=== PATIENT | female | born 1995 | race Caucasian/White ===

== ENCOUNTER 2021-02-20 10:11 | Emergency (ER) | payer SELFPAY ==
[2021-02-20 10:34] VITALS: BP 199/141; PULSE 104; RESP 15; TEMP 36.9; O2SAT 100; BMI 29.4
--- NOTE | 2021-02-20 10:40 | ECG_ITS ---
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 Measurements Intervals [place] Rate: 74 P: 38 MS: 160 QRS: 30 QRSD: 81 T: 52 QT: 385 QTc: 427 Interpretive Statements SINUS RHYTHM No previous ECG available for comparison Electronically Signed On 02-20-2021 18:25:05 CDT by Cristofer De La Rosa M.D. [id number]
--- NOTE | 2021-02-20 10:40 | XRR_ITS ---
PROCEDURE INFORMATION: Exam: XR Chest Exam date and time: 02/20/2021 10:46 AM Age: 25 years old Clinical indication: Chest wall pain; Additional info: Chest discomfort TECHNIQUE: Imaging protocol: XR of the chest. Views: 1 view. COMPARISON: No relevant prior studies available. FINDINGS: Lungs: Unremarkable. No consolidation. Pleural spaces: Unremarkable. No pleural effusion. No pneumothorax. Heart/Mediastinum: Unremarkable. No cardiomegaly. Bones/joints: Unremarkable. XR/XR chest 1V portable [id number] IMPRESSION: No acute findings.
[2021-02-20] MEDS: metoprolol tartrate 25 mg Tablet PO (10:48)
[2021-02-20] MEDS: metoprolol tartrate 1 mg/1 mL SDV 5 mL 5 MG IV (10:49)
[2021-02-20] MEDS: amlodipine 10 mg Tablet PO (10:49)
--- NOTE | 2021-02-20 10:55 | W.ED.CHESTPA ---
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 She was aware that her blood pressure had been climbing up lately she denies any fever sweats chills no cough or shortness of breath. No abdominal pain no dysuria urgency or frequency. MD complaint: chest discomfort Onset (ago): hour(s) Timing of current episode: episodic Onset: during rest Pain location: left chest and epigastric Pain radiation: none Quality: tightness and aching Associated symptoms: Deny abdominal pain, diaphoresis, dyspnea, fever(s), leg edema, nausea, palpitations, sense of impending doom, syncope, vomiting or other Review of Systems Const: Denies: fever(s) or diaphoresis ENMT: Denies: throat pain, ear or mastoid pain, nasal discharge or nasal congestion Card: Denies: palpitations or syncope Resp: Denies: dyspnea GI: Denies: abdominal pain, nausea or vomiting : Denies: flank pain, difficulty voiding, dysuria, urinary frequency or urinary urgency Skin/Breast: Denies: rash or pruritus Physical Exam Const: COMMON NORMALS: no acute distress GENERAL APPEARANCE: cooperative and comfortable ORIENTATION/CONSCIOUSNESS: Yes awake, Yes oriented to person, Yes oriented to place and Yes oriented to time HENMT: COMMON NORMALS: normocephalic, atraumatic, hearing grossly normal bilaterally, external ears normal, EAC's normal, TM's normal bilaterally, Normal nasal mucous membranes and turbinates present, moist oral mucous membranes and oropharynx normal HEAD & SCALP: normocephalic and atraumatic NOSE: Normal nasal mucous membranes and turbinates present EXTERNAL EAR: Yes external ears normal EXTERNAL AUDITORY CANAL: EAC's normal TYMPANIC MEMBRANE: TM's normal bilaterally Neck/C-Spine: COMMON NORMALS: no JVD Lymph: LYMPHATIC: no lymphadenopathy noted and no lymphedema noted Resp: COMMON NORMALS: normal respiratory effort, No retractions, No use of accessory muscles and clear to auscultation bilaterally AUSCULTATION: clear to auscultation bilaterally Cardio: COMMON NORMALS: no JVD, regular rate, regular rhythm and No murmurs present (Cardio) RATE: regular rate RHYTHM: regular rhythm GI: COMMON NORMALS: Soft to palpation and No hepatosplenomegaly present AUSCULTATION: Yes normoactive bowel sounds PALPATION: Yes Soft to palpation, No Tenderness to palpation present (GI), No Guarding due to palpation present (GI) and Yes No hepatosplenomegaly present Extremity: COMMON NORMALS: normal to inspection, capillary refill normal, no clubbing, cyanosis or edema, no calf tenderness and no pedal edema Neuro: SENSORIUM/ORIENTATION: Yes oriented to person, Yes oriented to place and Yes oriented to time Skin: COMMON NORMALS: no rashes or lesions noted GENERAL SKIN EXAM: no rashes or lesions noted Course Vital Signs: Vital signs: Vital Signs Temperature 98.4 F 02/20/21 10:34 Pulse Rate 90 02/20/21 14:53 Respiratory Rate 18 02/20/21 14:53 Blood Pressure 147/113 02/20/21 14:53 Pulse Oximetry 99 02/20/21 14:53 MDM - Chest Pain MDM Narrative: Medical decision making narrative: Blood pressure improved we will discharge home on amlodipine 10 mg daily and Toprol-XL 50 mg daily. Encourage patient follow-up with her primary care doctor within the next 2 to 3 days visiting worsening recurrent symptoms return. Discussed EKG and troponins with her which were negative. Lab Data: Labs: Lab Results 02/20/21 02/20/21 02/20/21 Range/Units 11:02 11:02 11:02 WBC 6.3 (4.0-10.0) 10^3/ uL RBC 4.70 (4.1-5.3) 10^6/u L Hgb 15.9 H (11.5-15.3) g/dL Hct 44.7 (37.0-47.0) % MCV 95.1 (81-99) fL MCH 33.8 (28.0-34.0) pg MCHC 35.6 (30.0-36.0) g/dL RDW 11.4 L (12.1-15.1) % Plt Count 199 (130-400) 10^3/c mm MPV 11.3 H (7.4-10.4) fL Neut % (Auto) 75.3 % Lymph % (Auto) 14.1 % Lake % (Auto) 8.5 % Eos % (Auto) 0.9 % Baso % (Auto) 0.6 % Neut # (Auto) 4.76 (1.8-7.7) 10^3/u L Lymph # (Auto) 0.9 (0.8-4.8) 10^3/u L Lake # (Auto) 0.5 (0.2-0.9) 10^3/u L Eos # (Auto) 0.1 (0.0-0.8) 10^3/u L Baso # (Auto) 0.0 (0.0-0.1) 10^3/u L Nucleated RBC % (a uto) 0 % Nucleated RBCs # 0.0 /100WBC Sodium Cancelled Potassium Cancelled Chloride Cancelled Carbon Dioxide Cancelled Anion Gap Cancelled BUN Cancelled Creatinine Cancelled GFR Calculation Cancelled Glucose Cancelled Calculated Osmolal ity Cancelled Calcium Cancelled Total Bilirubin Cancelled AST Cancelled ALT Cancelled Alkaline Phosphata se Cancelled Troponin T Baselin e 6 (0-10) ng/L Troponin T 120 Min [place] (0-10) ng/L Delta Troponin T (0-10) ABS# Total Protein Cancelled Albumin Cancelled Globulin Cancelled Urine Color (Yellow) Urine Appearance (CLEAR) Urine pH (5-7) Ur Specific Gravit y (1.005-1.030) Urine Protein (Negative) Urine Glucose (UA) (Normal) Urine Ketones (Negative) Urine Blood (Negative) Urine Nitrate (Negative) Urine Bilirubin (Negative) Prot Sulfosalicyli c Acd (Negative) Urine Urobilinogen (Negative) mg/dL Ur Leukocyte ase (Negative) Urine RBC (0-2) /hpf Urine WBC (0-5) /hpf Ur Squamous Epith Cells (0-5) /hpf Amorphous Sediment Urine Bacteria (NONE) /hpf 02/20/21 02/20/21 02/20/21 Range/Units 12:03 13:10 13:10 WBC (4.0-10.0) 10^3/ uL RBC (4.1-5.3) 10^6/u L Hgb (11.5-15.3) g/dL Hct (37.0-47.0) % MCV (81-99) fL MCH (28.0-34.0) pg MCHC (30.0-36.0) g/dL RDW (12.1-15.1) % Plt Count (130-400) 10^3/c mm MPV (7.4-10.4) fL Neut % (Auto) % Lymph % (Auto) % Lake % (Auto) % Eos % (Auto) % Baso % (Auto) % Neut # (Auto) (1.8-7.7) 10^3/u L Lymph # (Auto) (0.8-4.8) 10^3/u L [place] # (Auto) (0.2-0.9) 10^3/u L Eos # (Auto) (0.0-0.8) 10^3/u L Baso # (Auto) (0.0-0.1) 10^3/u L Nucleated RBC % (a uto) % Nucleated RBCs # /100WBC Sodium 136 Potassium 4.5 Chloride 98 Carbon Dioxide 27 Anion Gap 15.5 BUN 8 Creatinine 0.5 GFR Calculation 148.0 H Glucose 106 Calculated Osmolal ity 281 L Calcium 9.1 Total Bilirubin 1.0 AST 220 H ALT 161 H Alkaline Phosphata se 109 H Troponin T Baselin e (0-10) ng/L Troponin T 120 Min [place] 6.00 (0-10) ng/L Delta Troponin T 0 (0-10) ABS# Total Protein 7.3 Albumin 4.2 Globulin 3.1 Urine Color Yellow (Yellow) Urine Appearance Hazy A (CLEAR) Urine pH 8 H (5-7) Ur Specific Gravit y 1.005 (1.005-1.030) Urine Protein 1+ H (Negative) Urine Glucose (UA) Norm (Normal) Urine Ketones Negative (Negative) Urine Blood Neg (Negative) Urine Nitrate Negative (Negative) Urine Bilirubin Neg (Negative) Prot Sulfosalicyli c Acd Positive (Negative) Urine Urobilinogen Norm (Negative) mg/dL Ur Leukocyte ase Negative (Negative) Urine RBC None (0-2) /hpf Urine WBC 0-4 H (0-5) /hpf Ur Squamous Epith Cells 10-15 H (0-5) /hpf Amorphous Sediment Not Reportable Urine Bacteria 1+ H (NONE) /hpf Discharge Plan Discharge Patient Disposition: Home Clinical Impression: HTN (hypertension) Condition: Stable Prescriptions: New amlodipine 10 mg tablet 10 mg PO DAILY Qty: 30 RF: 0 Toprol XL 50 mg tablet extended release 24 hr 50 mg PO DAILY Qty: 30 RF: 0 Discharge Orders: Discharge ED (Routine); Ordered 02/20/21 Ordered By: Joseph Burnette Referrals: Tyesha Quinteros DO [Primary Care Provider] - Discharge Diet: Usual diet Discharge Activity: Increase activity as tolerated Patient Instructions: Opioid Safety Coding Level of Care Code ED Manager Wellness for Chg Fwd Exam Comprehensive
[2021-02-20 12:39] LABS: Basophils % 0.6 %; Eosinophils # 0.1 10^3/uL (0.0-0.8); Eosinophils % 0.9 %; Hematocrit 44.7 % (37.0-47.0); Hemoglobin 15.9 g/dL (11.5-15.3); Lymphocytes # 0.9 10^3/uL (0.8-4.8); Lymphocytes % 14.1 %; Mean Corpuscular HGB Conc 35.6 g/dL (30.0-36.0); Mean Corpuscular Hemoglobin 33.8 pg (28.0-34.0); Mean Corpuscular Volume 95.1 fL (81-99); Mean Platelet Volume 11.3 fL (7.4-10.4); Monocytes # 0.5 10^3/uL (0.2-0.9); Monocytes % 8.5 %; Neutrophils # 4.76 10^3/uL (1.8-7.7); Neutrophils % 75.3 %; Nucleated Red Blood Cells % 0 %; Platelet Count 199 10^3/cmm (130-400); Red Cell Distribution Width 11.4 % (12.1-15.1); White Blood Count 6.3 10^3/uL (4.0-10.0)
--- NOTE | 2021-02-20 12:40 | ECG_ITS ---
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 Measurements Intervals [place] Rate: 73 P: 29 ME: 151 QRS: 29 QRSD: 85 T: 7 QT: 392 QTc: 432 Interpretive Statements SINUS RHYTHM Compared to ECG 02/20/2021 11:15:19 No significant changes Electronically Signed On 02-20-2021 18:25:26 CDT by Cristofer De La Rosa M.D. [id number]
[2021-02-20 12:51] LABS: Troponin(5th) Baseline 6 ng/L (0-10)
[2021-02-20] MEDS: labetalol 5 mg/mL SDV 20mL 10 MG IVP (13:09)
[2021-02-20 13:51] LABS: Alanine Aminotransferase 161 U/L (0-33); Albumin Level 4.2 g/dL (3.5-5.2); Alkaline Phosphatase 109 IU/L (35-105); Anion Gap 15.5 (5-19); Aspartate Amino Transferase 220 U/L (0-32); Blood Urea Nitrogen 8 mg/dL (6-20); Calcium 9.1 mg/dL (8.5-10.5); Carbon Dioxide 27 mmol/L (22-29); Chloride 98 mmol/L (98-107); Globulin 3.1 g/dL (1.3-4.6); Glucose 106 mg/dL (65-115); Osmolality Calculated 281 mOsm/kg (285-295); Potassium 4.5 mmol/L (3.5-5.1); Sodium 136 mmol/L (136-145); Total Protein 7.3 g/dL (6.6-8.7)
[2021-02-20 13:53] LABS: Troponin 5 2HR Delta 0 ABS# (0-10)
[2021-02-20] MEDS: cloNIDine 0.1 mg Tablet PO (13:59)
[2021-02-20 14:53] VITALS: BP 147/113; PULSE 90; RESP 18; O2SAT 99
[2021-02-20 15:01] LABS: Add Urine Microscopic? YES; Bilirubin Urine Neg (Negative); Blood Urine Neg (Negative); Glucose Urine UA Norm (Normal); Ketones Urine Negative (Negative); Leukocyte Esterase Urine Negative (Negative); Nitrate Urine Negative (Negative); Protein Urine 1+ (Negative); Specific Gravity, Urine 1.005 (1.005-1.030); Sulfosalicylic Acid Urine Positive (Negative); Urine Appearance Hazy (CLEAR); Urine Color Yellow (Yellow); Urobilinogen Urine Norm (Negative); pH Urine 8 (5-7)
[2021-02-20 15:06] LABS: WBC Urine 0-4 /hpf (0-5)
[2021-02-20 15:07] LABS: Add Urine Culture? No; Bacteria Urine 1+ /hpf
== END 2021-02-20 14:55 | disposition home or self-care (01) ==
PROVIDERS: Emergency Provider Family Medicine; PCP Family Medicine
DX: I10 Essential (primary) hypertension (principal)
CPT/HCPCS: 36415; 71045; 80053; 81001; 84484; 85025; 93005; 96374; 96375; 99284; J3490

== ENCOUNTER 2022-01-25 09:46 | Outpatient (CLI) | payer BC, MEDICAID, SELFPAY ==
[2022-01-25 10:08] VITALS: BP 132/90; PULSE 99
[2022-01-25 10:12] VITALS: TEMP 35.7
[2022-01-25 10:28] VITALS: BP 133/90; PULSE 93
[2022-01-25 12:34] VITALS: BP 133/90; PULSE 93; RESP 18; TEMP 36.3
== END 2022-01-25 12:40 | disposition home or self-care (01) ==
LOC: OPOB 09:52 → OBGYN 09:53
PROVIDERS: PCP Family Medicine; Visit Provider Family Medicine
DX: O26.899 Other specified pregnancy related conditions, unspecified trimester (principal); Z3A.00 Weeks of gestation of pregnancy not specified; R10.9 Unspecified abdominal pain
CPT/HCPCS: 99211

== ENCOUNTER 2022-04-13 12:42 | Outpatient (CLI) | payer BC, MEDICAID, SELFPAY ==
[2022-04-13 12:50] VITALS: RESP 16; TEMP 35.9
[2022-04-13 12:53] VITALS: BP 118/81; PULSE 108; RESP 17; TEMP 36.4; O2SAT 97
[2022-04-13 13:05] VITALS: BMI 28.4
[2022-04-13 13:22] VITALS: BP 116/81; PULSE 100
== END 2022-04-13 13:30 | disposition home or self-care (01) ==
LOC: OPOB 12:43 → OBGYN 12:45
PROVIDERS: PCP Family Medicine; Visit Provider Family Medicine
DX: O16.9 Unspecified maternal hypertension, unspecified trimester (principal); Z3A.00 Weeks of gestation of pregnancy not specified
CPT/HCPCS: 59025

== ENCOUNTER 2022-04-17 15:11 | Outpatient (CLI) | payer BC, MEDICAID, SELFPAY ==
[2022-04-17 15:11] VITALS: BMI 28.8
[2022-04-17 15:26] VITALS: TEMP 35.9
[2022-04-17 15:30] VITALS: RESP 17
[2022-04-17 15:33] VITALS: BP 143/85; PULSE 104
[2022-04-17 15:48] VITALS: BP 148/91; PULSE 96
[2022-04-17 15:49] VITALS: BP 140/80; PULSE 93
== END 2022-04-17 15:55 | disposition home or self-care (01) ==
LOC: OPOB 15:15 → OBGYN 15:16
PROVIDERS: PCP Family Medicine; Visit Provider Family Medicine
DX: O16.9 Unspecified maternal hypertension, unspecified trimester (principal); Z3A.00 Weeks of gestation of pregnancy not specified
CPT/HCPCS: 59025

== ENCOUNTER 2022-04-24 15:27 | Outpatient (CLI) | payer BC, MEDICAID, SELFPAY ==
[2022-04-24 15:27] VITALS: BMI 29.2
[2022-04-24 15:41] VITALS: BP 139/92; PULSE 110
[2022-04-24 15:57] VITALS: BP 136/97; PULSE 104
[2022-04-24 16:12] VITALS: BP 138/85; PULSE 105
[2022-04-24 16:27] VITALS: BP 136/89; PULSE 100
== END 2022-04-24 16:28 | disposition home or self-care (01) ==
LOC: OPOB 15:34 → OBGYN 15:36
PROVIDERS: PCP Family Medicine; Visit Provider Family Medicine
DX: O16.9 Unspecified maternal hypertension, unspecified trimester (principal); Z3A.00 Weeks of gestation of pregnancy not specified
CPT/HCPCS: 59025

== ENCOUNTER 2022-04-28 16:54 | Outpatient (CLI) | payer BC, MEDICAID, SELFPAY ==
[2022-04-27 15:38] VITALS: RESP 18
[2022-04-28] VITALS (11 sets, daily range): BP systolic 119–149; BP diastolic 71–104; PULSE 99–110; RESP 16–18; TEMP 35.7; BMI 29.2
--- NOTE | 2022-04-28 17:25 | USR_ITS ---
PROCEDURE INFORMATION: Exam: US Biophysical Profile Without Non-Stress Test Exam date and time: 04/28/2022 5:58 PM Age: 26 years old Clinical indication: status abnormalities: ; Abnormal heart rate; Single gestation; Third trimester (=28 weeks 0 days); ; Additional info: Deceleration TECHNIQUE: Imaging protocol: US biophysical profile without non-stress testing. COMPARISON: US OB >= 14 weeks fetus [id number] 01/15/2022 3:12 PM FINDINGS: heart rate: 136 bpm Presentation: Cephalic Placenta: Placenta is anterior. Amniotic fluid: Amniotic fluid volume is normal. Amniotic fluid index: VERNA is 7.2 cm. BIOPHYSICAL PROFILE: breathing movement (BPP): 2/2 body movement (BPP): 2/2 tone (BPP): 2/2 Amniotic fluid (BPP): 2/2 Biophysical profile score (BPP): 8/8 MATERNAL ANATOMY: Cervix: Cervical length measures 3.1 cm. US/US OB BPP wo NST [id number] IMPRESSION: Biophysical profile score is normal at 8/8.
[2022-04-28 17:48] LABS: Add Urine Microscopic? NO; Charge for UA Resulting for Rev
[2022-04-28 18:01] LABS: Basophils % 0.3 %; Eosinophils % 0.4 %; Hematocrit 31.6 % (37.0-47.0); Hemoglobin 10.6 g/dL (11.5-15.3); Lymphocytes # 1.7 10^3/uL (0.8-4.8); Lymphocytes % 17.6 %; Mean Corpuscular HGB Conc 33.5 g/dL (30.0-36.0); Mean Corpuscular Volume 89.5 fl (81-99); Mean Platelet Volume 9.6 fL (7.4-10.4); Monocytes # 0.7 10^3/uL (0.2-0.9); Monocytes % 7.3 %; Neutrophils # 6.94 10^3/uL (1.8-7.7); Neutrophils % 73.7 %; Nucleated Red Blood Cells % 0 %; Platelet Count 262 10^3/cmm (130-400); Red Blood Count 3.53 10^6/uL (4.1-5.3); Red Cell Distribution Width 12.8 % (12.1-15.1); White Blood Count 9.4 10^3/uL (4.0-10.0)
[2022-04-28 18:30] LABS: Urine Creatinine 149 mg/dL (28-217); Urine Protein Random 14 mg/dL
[2022-04-28 18:54] LABS: Alanine Aminotransferase 8 U/L (0-33); Albumin Level 3.4 g/dL (3.5-5.2); Alkaline Phosphatase 110 IU/L (35-105); Anion Gap 15.9 (5-19); Aspartate Amino Transferase 13 U/L (0-32); Blood Urea Nitrogen 11 mg/dL (6-20); Calcium 8.8 mg/dL (8.5-10.5); Carbon Dioxide 23 mmol/L (22-29); Chloride 100 mmol/L (98-107); Globulin 2.8 g/dL (1.3-4.6); Glomerular Filtration Rate 146.9 mL/min (90-130); Glucose 83 mg/dL (65-115); Osmolality Calculated 279 mOsm/kg (285-295); Potassium 3.9 mmol/L (3.5-5.1); Sodium 135 mmol/L (136-145); Total Bilirubin 0.2 mg/dL (0.15-1.2); Total Protein 6.2 g/dL (6.6-8.7); Uric Acid 5.2 mg/dL (2.4-5.7)
[2022-04-28 18:56] LABS: UPRO/UCREAT Ratio 0.09 mg/mg CR
[2022-04-28 19:02] LABS: Bilirubin Urine Neg (Negative); Blood Urine Neg (Negative); Glucose Urine UA Norm (Normal); Ketones Urine Negative (Negative); Leukocyte Esterase Urine Negative (Negative); Nitrate Urine Negative (Negative); Protein Urine Neg (Negative); Specific Gravity, Urine 1.015 (1.005-1.030); Urine Appearance Clear (CLEAR); Urine Color Yellow (Yellow); Urobilinogen Urine Neg (Negative); pH Urine 7 (5-7)
[2022-04-28] MEDS: metoprolol tartrate 50 mg Tablet PO (19:27)
[2022-04-28] MEDS: HYDROcodone-acetaminophen 5-325 mg Tablet 2 TAB PO (19:27)
== END 2022-04-28 19:32 | disposition home or self-care (01) ==
LOC: OPOB 16:55 → OBGYN 16:55
PROVIDERS: PCP Family Medicine; Visit Provider Family Medicine
DX: O16.9 Unspecified maternal hypertension, unspecified trimester (principal); Z3A.00 Weeks of gestation of pregnancy not specified
CPT/HCPCS: 36415; 59025; 76819; 80053; 81003; 82570; 84156; 84550; 85025; 99211

== ENCOUNTER 2022-05-01 15:20 | Outpatient (CLI) | payer BC, MEDICAID, SELFPAY ==
[2022-05-01 15:27] VITALS: BP 141/100; PULSE 109; TEMP 35.8
[2022-05-01 15:44] VITALS: BP 157/108; PULSE 106
[2022-05-01 15:59] VITALS: RESP 18; BMI 29.6
[2022-05-01 16:01] VITALS: BP 150/104; PULSE 102
== END 2022-05-01 16:15 | disposition home or self-care (01) ==
LOC: OPOB 15:23 → OBGYN 15:23
PROVIDERS: PCP Family Medicine; Visit Provider Family Medicine
DX: O16.9 Unspecified maternal hypertension, unspecified trimester (principal); Z3A.00 Weeks of gestation of pregnancy not specified
CPT/HCPCS: 59025

== ENCOUNTER 2022-05-04 15:54 | Outpatient (CLI) | payer BC, MEDICAID, SELFPAY ==
[2022-05-04 16:05] VITALS: BP 139/98; PULSE 101; RESP 16
--- NOTE | 2022-05-04 16:05 | USR_ITS ---
PROCEDURE INFORMATION: Exam: US , Limited Exam date and time: 05/04/2022 4:38 PM Age: 26 years old Clinical indication: Screening exam; Other: To check size of baby; ; Patient HX: Growth check; Additional info: Growth and radha TECHNIQUE: Imaging protocol: Real-time ultrasound of the maternal uterus with image documentation. Exam focused on the clinical indication. COMPARISON: US OB BPP wo NST [id number] 04/28/2022 5:58 PM FINDINGS: Gestation: Monochorionic/Monoamniotic Lucia Heart rate: 131 bpm. Presentation: Vertex Placenta: Anterior; Grade 2. No evidence of placenta previa. Amniotic fluid: 10.5 cm Last menstrual period: August 20, 2021 GA by LMP: 36 weeks and 5 days GA by today ultrasound: 34 weeks and 5 days GA selected: 34 weeks and 5 days Estimated due date: June 10, 2022 Estimated weight: 2593g +/- 5 lb and 12 oz to [place] Biparietal diameter: 8.43 cm - 34 wk 0 d +/- 44 days Head circumference: 30.69 cm - 34 wk 1 d +/- 43 days Abdominal circumference: 31.53 cm - 35 wk 3 d +/- 43 days Femur length: 6.86 cm - 35 wk 2d +/- 43 days Ratios: HC/AC 0.97 % 0.97 - 1.19 % FL/AC 21.8 % 20% - 24% FL/BPD 81.4 % 71% - 87 % CI 86.2 % 70% - 86% Anatomy: Anatomic assessment was not performed on the exam. Maternal: Cervix: 4.2 cm US/US OB limited [id number] IMPRESSION: Single intrauterine with estimated gestational age by today's exam of 34 weeks and 5. SONY of June 10, 2022. Normal amniotic fluid volume. heart rate of 131 bpm. Cervical length of 4.2 cm.
[2022-05-04 16:06] VITALS: TEMP 35.9
[2022-05-04 16:08] VITALS: BMI 30.1
[2022-05-04 16:21] VITALS: BP 138/102; PULSE 97
== END 2022-05-04 16:59 | disposition home or self-care (01) ==
LOC: OPOB 15:54 → OBGYN 15:58
PROVIDERS: PCP Family Medicine; Visit Provider Family Medicine
DX: O16.9 Unspecified maternal hypertension, unspecified trimester (principal); Z3A.34 34 weeks gestation of pregnancy
CPT/HCPCS: 59025; 76815

== ENCOUNTER 2022-05-08 15:15 | Outpatient (CLI) | payer BC, MEDICAID, SELFPAY ==
[2022-05-08 15:29] VITALS: BP 135/89; PULSE 96
[2022-05-08 15:45] VITALS: BP 140/93; PULSE 92
[2022-05-08 16:00] VITALS: BP 141/91; PULSE 95
[2022-05-08 16:15] VITALS: BP 142/96; PULSE 97
[2022-05-08 16:46] VITALS: BMI 29.7
== END 2022-05-08 16:20 | disposition home or self-care (01) ==
LOC: OPOB 15:22 → OBGYN 15:24
PROVIDERS: PCP Family Medicine; Visit Provider Family Medicine
DX: O16.9 Unspecified maternal hypertension, unspecified trimester (principal); Z3A.00 Weeks of gestation of pregnancy not specified
CPT/HCPCS: 59025; 99211

== ENCOUNTER 2022-05-11 15:00 | Outpatient (CLI) | payer BC, MEDICAID, SELFPAY ==
[2022-05-11 15:00] VITALS: BMI 29.4
[2022-05-11 15:13] VITALS: BP 141/99; PULSE 113
[2022-05-11 15:14] VITALS: BP 136/100; PULSE 104
[2022-05-11 15:34] VITALS: BP 132/82; PULSE 101
[2022-05-11 16:15] VITALS: BP 132/82; PULSE 101; RESP 18
== END 2022-05-11 15:55 | disposition home or self-care (01) ==
LOC: OPOB 15:05 → OBGYN 15:11
PROVIDERS: PCP Family Medicine; Visit Provider Family Medicine
DX: O16.9 Unspecified maternal hypertension, unspecified trimester (principal); Z3A.00 Weeks of gestation of pregnancy not specified
CPT/HCPCS: 59025; 99211

== ENCOUNTER 2022-05-15 14:00 | Outpatient (CLI) | payer BC, MEDICAID, SELFPAY ==
[2022-05-15 14:08] VITALS: BP 138/100; PULSE 113
[2022-05-15 14:23] VITALS: BP 146/104; PULSE 106
[2022-05-15 14:39] VITALS: BP 143/102; PULSE 102
[2022-05-15 15:00] VITALS: BMI 29.4
== END 2022-05-15 14:48 | disposition home or self-care (01) ==
LOC: OPOB 14:03 → OBGYN 14:04
PROVIDERS: PCP Family Medicine; Visit Provider Family Medicine
DX: O16.9 Unspecified maternal hypertension, unspecified trimester (principal); Z3A.00 Weeks of gestation of pregnancy not specified
CPT/HCPCS: 59025

== ENCOUNTER 2022-05-18 12:21 | Outpatient (CLI) | payer BC, MEDICAID, SELFPAY ==
[2022-05-18 12:20] VITALS: RESP 18
[2022-05-18 12:36] VITALS: BP 138/91; PULSE 95; TEMP 35.9
[2022-05-18 12:51] VITALS: BP 142/92; PULSE 95
[2022-05-18 13:56] VITALS: BMI 26.9
== END 2022-05-18 13:05 | disposition home or self-care (01) ==
LOC: OPOB 12:22 → OBGYN 12:23
PROVIDERS: PCP Family Medicine; Visit Provider Family Medicine
DX: O26.899 Other specified pregnancy related conditions, unspecified trimester (principal); Z3A.00 Weeks of gestation of pregnancy not specified
CPT/HCPCS: 59025

== ENCOUNTER 2022-05-20 15:00 | Inpatient (IN) | payer BC, MEDICAID, SELFPAY ==
[2022-05-20] VITALS (65 sets, daily range): BP systolic 130–175; BP diastolic 67–103; PULSE 81–114; RESP 18; TEMP 36.7; O2SAT 93–99
[2022-05-20] MEDS: dextrose 5%-lactated ringers 1,000 ML 125 ML IV ×2 (14:18→22:34)
[2022-05-20] MEDS: oxytocin 30 UNIT/500 ML BAG IV (14:20)
[2022-05-20 14:34] LABS: Basophils % 0.4 %; Eosinophils % 0.4 %; Hematocrit 32.8 % (37.0-47.0); Lymphocytes # 1.6 10^3/uL (0.8-4.8); Lymphocytes % 15.3 %; Mean Corpuscular HGB Conc 33.5 g/dL (30.0-36.0); Mean Corpuscular Hemoglobin 29.6 pg (28.0-34.0); Mean Corpuscular Volume 88.4 fl (81-99); Mean Platelet Volume 9.9 fL (7.4-10.4); Monocytes # 0.6 10^3/uL (0.2-0.9); Monocytes % 5.2 %; Neutrophils # 8.27 10^3/uL (1.8-7.7); Neutrophils % 77.9 %; Nucleated Red Blood Cells % 0 %; Platelet Count 293 10^3/cmm (130-400); Red Blood Count 3.71 10^6/uL (4.1-5.3); Red Cell Distribution Width 12.9 % (12.1-15.1); White Blood Count 10.6 10^3/uL (4.0-10.0)
[2022-05-20] MEDS: lactated ringers 1,000 ML 999 ML IV ×2 (19:24→20:38)
--- NOTE | 2022-05-20 20:30 | ANES.PREANE2 ---
Pre-Anesthetic Assessment Height/Weight: Height 1.65 m Pulse Resp BP Pulse Ox O2 Del Method FiO2 81 18 168/97 93 40 05/20/22 20:26 05/20/22 13:27 05/20/22 20:26 05/20/22 16:58 05/20/22 16:58 05/20/22 16:58 Preop Diagnosis: labor pain epidural Familial anesthetic complications: none Was Beta Neto taken within 24 hours: Yes Was Clonidine taken within 24 hours: N/A Exam alert, oriented x 3, clear to auscultation bilaterally and regular rate & rhythm Airway Submandibular: within normal limits Cervical ROM: within normal limits Mallampati: Class II Dentition: full History/ROS Other Pulmonary None reported CV/HEM Hypertension None reported Hepatic None reported GI Gastroesophageal Reflux Disease Metabolic None reported Musc/skel None reported Neuropsych None reported Anesthetic Plan ASA status: 2 Anesthesia: Regional (specify below) Risk of > 500 ml blood loss (7ml/kg in children): No Medications/Allergies Home Medications Medication Instructions Recorded Confirmed Last Taken Type aspirin 81 mg capsule 81 mg PO DAILY 04/13/22 05/21/22 05/20/22 03:30 History vit no.95-ferrous 1 tab PO DAILY 04/13/22 05/21/22 05/20/22 03:30 History fumarate 28 mg-folic acid 800 mcg tablet () Allergies Allergy/AdvReac Type Severity Reaction Status Date / Time No Known Allergies Allergy Verified 05/21/22 20:26 Current Medications Generic Name Dose Route Start Last Admin Trade Name Freq PRN Reason Stop Dose Admin Dextrose/Lactated Ringer's 1,000 mls @ 125 mls/hr 05/20/22 13:30 05/20/22 14:18 Dextrose 5%-Lactated Ringers IV 125 mls/hr .Q8H JOE Administration Oxytocin 30 unit in 500 mls @ 1 mls/hr 05/20/22 13:30 05/20/22 17:20 Pitocin IV 10 milliunit/min .Q24H JOE 10 mls/hr Titration Protocol 1 MILLIUNIT/MIN Lactated Ringer's 1,000 mls @ 999 mls/hr 05/20/22 19:05 05/20/22 19:24 Lactated Ringers IV 999 mls/hr .Q1H1M PRN Administration See label comments PFSH Anesthesia Female Reproductive History : 2 Data Anesthesia : 05/21/22 13:39 Short CBC 05/20/22 Range/Units 13:50 WBC 10.6 H (4.0-10.0) 10^3/uL Hgb 11.0 L (11.5-15.3) g/dL Hct 32.8 L (37.0-47.0) % MCV 88.4 (81-99) fl Plt Count 293 (130-400) 10^3/cmm Neut % (Auto) 77.9 % Neut # (Auto) 8.27 H (1.8-7.7) 10^3/uL Cardiac Studies: No Data to Display
--- NOTE | 2022-05-20 21:11 | ANES.PROC ---
Documented by User: Joseph Chua CRNA 05/20/22 21:11 Anesthesia Procedures Procedure/Date: 05/20/22 epidural Procedure Narrative: epidural complete, bolus given, epidural pump initiated with [employer] SUPER[employer]OR education given, vitals taken during procedure using OBIX system and satisfactory throughout, patient admits to decrease pain, report of procedure to OB RN Epidural: Time Out Performed: Yes Consents Signed: Procedure Consent Consent: requested by attending/covering physician, from patient, risks and benefits reviewed and patient agrees to proceed Lumbar Level: L3-L4 Epidural position: sitting Epidural procedure: sterile prep of area, 1% lidocaine to numb the area (3 mL), 18 g needle, negative for paresthesia passed, neg for paresthesia, test dose given, 1.5% xylocaine 1:200k epi (5 mL), 0.2% Ropivacaine bolus ml (5 mL), placed PCEA, no systemic response, sterile dressing applied, L.U.D. no apparent complications and 0.2% Ropiavacaine @ mls/hr (13 mL/hr) Documented by User: Arturo Gonsalez DO 05/22/22 16:21 Anesthesia Procedures Procedure/Date: 05/22/22
[2022-05-21] VITALS (20 sets, daily range): BP systolic 129–218; BP diastolic 76–105; PULSE 50–130; RESP 16–18; TEMP 36.5–36.8; O2SAT 99
--- NOTE | 2022-05-21 01:00 | P.PCNOB_ITS ---
Delivery Note: Date of delivery: May 21, 2022 Procedure: Normal spontaneous vaginal delivery Estimated blood loss (mL): 150 Pre-Delivery Course: Mother had routine care at [facility]. Her was complicated by chronic hypertension. She was taking metoprolol 25 mg twice a day during the . she was blood type O+ antibody negative, hepatitis B surface antigen nonreactive, hepatitis C antibody nonreactive, HIV nonreactive, rubella immune, RPR nonreactive, she passed her glucose tolerance test at 130, she was GBS negative, she was followed with ser ial growth ultrasounds approximately every 4 weeks she had twice weekly NSTs beginning around 33 weeks gestation Delivery: This is a 26-year-old at 39 weeks gestation who was admitted for induction secondary to chronic hypertension. She was taking metoprolol 25 mg twice a day. Her cervix was favorable so she was started on high-dose Pitoc in. She had artificial rupture of membranes with clear fluid. Rupture of membranes was approximately 7 hours prior to delivery. She was GBS negative. She only had to push through 1 contraction and had a normal spontaneous vaginal delivery of a viable male infant weight 3180 g, 7 pounds 0 ounces, Apgars 8 and 9 over an intact perineum, OA. The was suctioned at delivery and placed on the mother's chest. The cord was clamped and cut. The placenta was delivered grossly intact and normal to inspection. There were no lacerations. Mother and infant were doing well after delivery Coding Level of Care Code Acute Agent Producer for Lb Esquivel
[2022-05-21] MEDS: acetaminophen 325 mg Tablet 650 MG PO (05:18)
[2022-05-21] MEDS: docusate sodium 100 mg Capsule PO ×2 (08:48→21:12)
[2022-05-21] MEDS: prenatal vitamin Capsule 1 CAP PO (08:48)
[2022-05-21] MEDS: ibuprofen 800 mg tablet PO ×3 (08:48→21:12)
[2022-05-21 13:47] LABS: Hematocrit 31.3 % (37.0-47.0); Hemoglobin 10.7 g/dL (11.5-15.3); Mean Corpuscular HGB Conc 34.2 g/dL (30.0-36.0); Mean Corpuscular Hemoglobin 30.1 pg (28.0-34.0); Mean Corpuscular Volume 88.2 fl (81-99); Mean Platelet Volume 9.7 fL (7.4-10.4); Platelet Count 232 10^3/cmm (130-400); Red Blood Count 3.55 10^6/uL (4.1-5.3); Red Cell Distribution Width 12.7 % (12.1-15.1); White Blood Count 8.6 10^3/uL (4.0-10.0)
[2022-05-22 01:16] VITALS: PULSE 75; RESP 16; TEMP 36.8
[2022-05-22 04:50] VITALS: BP 134/94; PULSE 74; RESP 16; O2SAT 99
[2022-05-22] MEDS: ibuprofen 800 mg tablet PO (08:33)
[2022-05-22] MEDS: docusate sodium 100 mg Capsule PO (08:33)
[2022-05-22] MEDS: prenatal vitamin Capsule 1 CAP PO (08:33)
[2022-05-22 09:51] VITALS: BP 132/83; PULSE 87; RESP 16; TEMP 36.8; O2SAT 98
--- NOTE | 2022-05-22 12:40 | P.DS_ITS ---
Discharge Providers Date of Admission: 05/20/22 15:00 Date of Discharge: May 22, 2022 Attending Provider at Admission: Brook Garcia MD Attending Provider at Discharge: Brook Garcia MD Primary Care Provider: Tyesha Quinteros DO Reason for Visit Reason for Visit: Induction Hospital Course Hospital Course This is a 26-year-old G2 now P2 who was admitted for induction. She had chronic hypertension that was managed during the and controlled on metoprolol. She had a normal spontaneous vaginal delivery of a viable male infant. After delivery mother and have done well. She is ambulating, tolerating a regular diet, has decreased vaginal bleeding and is comfortable with discharge home. She was not on blood pressure medicine prior to so we are going to hold her blood pressure medicine upon discharge. Physical Exam Narrative: Alert and oriented, walking around the room, abdomen is soft nontender fundus is firm and U- 2, there is 1+ edema but no calf tenderness. Urinary Catheter Management: Patterson: Cath Placed During This Visit: yes, but has since been removed by the nurse Reason for Continuing Indwelling Catheter: Decision to DC Catheter Urinary Catheter Date of Insertion: 05/20/22 Urinary Catheter Time of Insertion: 21:31 Date Urinary Catheter Removed: 05/21/22 Time Urinary Catheter Discontinued: 00:35 Discharge Data Studies Completed and Pending Laboratory Results WBC 8.6 10^3/uL (4.0-10.0) 05/21/22 13:39 RBC 3.55 10^6/uL (4.1-5.3) L 05/21/22 13:39 Hgb 10.7 g/dL (11.5-15.3) L 05/21/22 13:39 Hct 31.3 % (37.0-47.0) L 05/21/22 13:39 MCV 88.2 fl (81-99) 05/21/22 13:39 MCH 30.1 pg (28.0-34.0) 05/21/22 13:39 MCHC 34.2 g/dL (30.0-36.0) 05/21/22 13:39 RDW 12.7 % (12.1-15.1) 05/21/22 13:39 Plt Count 232 10^3/cmm (130-400) 05/21/22 13:39 MPV 9.7 fL (7.4-10.4) 05/21/22 13:39 Neut % (Auto) 77.9 % 05/20/22 13:50 Lymph % (Auto) 15.3 % 05/20/22 13:50 [place] % (Auto) 5.2 % 05/20/22 13:50 Eos % (Auto) 0.4 % 05/20/22 13:50 Baso % (Auto) 0.4 % 05/20/22 13:50 Neut # (Auto) 8.27 10^3/uL (1.8-7.7) H 05/20/22 13:50 Lymph # (Auto) 1.6 10^3/uL (0.8-4.8) 05/20/22 13:50 [place] # (Auto) 0.6 10^3/uL (0.2-0.9) 05/20/22 13:50 Eos # (Auto) 0.0 10^3/uL (0.0-0.8) 05/20/22 13:50 Baso # (Auto) 0.0 10^3/uL (0.0-0.1) 05/20/22 13:50 Nucleated RBC % (auto) 0 % 05/20/22 13:50 Nucleated RBCs # 0.0 /100WBC 05/20/22 13:50 Vitals Last Vital Signs Temp 98.2 F 05/22/22 09:51 Pulse 87 05/22/22 09:51 Resp 16 05/22/22 09:51 BP 132/83 05/22/22 09:51 Pulse Ox 98 05/22/22 09:51 O2 Del Method 05/22/22 09:51 FiO2 40 05/20/22 16:58 Discharge Plan Discharge Patient Disposition: Home Condition: Stable Prescriptions: Continued PNV cmb#95-ferrous fumarate-FA [] 28 mg iron- 800 mcg Tablet 1 tab PO DAILY aspirin 81 mg Capsule 81 mg PO DAILY Discontinued metoprolol succinate [Toprol XL] 50 mg tablet extended release 24 hr 50 mg PO DAILY Qty: 30 0RF Discharge Orders: Discharge Order (Routine); Ordered 05/22/22 Ordered By: Brook Garcia Referrals: Brook Garcia MD [Physician] - 1 month Discharge Diet: Usual diet Discharge Activity: Limit activity as instructed Patient Instructions: Depression (DC), Bleeding (DC), Preeclampsia and Eclampsia After Delivery (GEN), OB Discharge Report, OB Food/Drug Interaction Guide, Opioid Safety, OB Home Care, OB Vaginal Deliveries Discharge Attestations Time Spent in Discharge Care*: less than 30 min Quality Metrics Clinical Quality Measures [ No reported AMI, CVA or VTE this stay] Coding Level of Care Code Acute Chg FW DC note
[2022-05-22 13:30] VITALS: BP 129/89; PULSE 88; RESP 16; TEMP 36.9; O2SAT 97
--- NOTE | 2022-05-22 16:21 | ANE.PACU2 ---
Inpatient post-anesthesia follow up: Airway intact: Yes Vital signs: Temperature 98.4 F Pulse Rate 88 Respiratory Rate 16 Blood Pressure 129/89 Pulse Oximetry 97 Oxygen Delivery Me thod Room Air Oxygen Flow Rate Fraction of Inspir ed Oxygen 40 Hydration adequate: Yes Nausea and vomiting: No Pain level: 1 Mental status: Baseline Additional Comments: EMR review
== END 2022-05-22 13:30 | disposition home or self-care (01) | DRG 807 ==
LOC: OPOB 05-21 01:10 → OBGYN 05-21 01:10
PROVIDERS: Admitting Provider Family Medicine; PCP Family Medicine; Visit Provider Family Medicine
DX: O13.4 Gestational [pregnancy-induced] hypertension without significant proteinuria, complicating childbirth (principal); Z37.0 Single live birth; Z3A.39 39 weeks gestation of pregnancy; Z87.891 Personal history of nicotine dependence; K21.9 Gastro-esophageal reflux disease without esophagitis; Z79.82 Long term (current) use of aspirin; O75.89 Other specified complications of labor and delivery
CPT/HCPCS: 36415; 51702; 59409; 85025; 85027; J2795

== ENCOUNTER 2023-07-14 18:35 | Emergency (ER) | payer BC, MEDICAID, SELFPAY ==
[2023-07-14 18:44] VITALS: BP 154/114; PULSE 106; RESP 24; TEMP 36.3; O2SAT 96; BMI 24.1
--- NOTE | 2023-07-14 19:15 | ED.C_ITS ---
HPI - Psych General: Chief Complaint: Psychiatric Symptoms Stated Complaint: ETOH Time Seen by Provider: 07/14/23 18:40 History of Present Illness: Patient presents by EMS because she is depressed. Patient smells of alcohol and appears intoxicated. Patient denies any suicidal or homicidal ideation to the ER staff. But EMS did state she did tell them that she did not want to live anymore. Patient just says to myself and her nurse that she is want to talk with her dad. Reggie is out of the waiting room and will be brought back for the patient to talk to. Review of Systems General: Reports: 10 or more systems reviewed and unremarkable except in HPI and below Physical Exam Narrative: EXAM NARRATIVE: At first patient appeared unresponsive and was given a vigorous sternal rub to which she awoke and was alert oriented and coherent from that point on Const: COMMON NORMALS: no acute distress, average body habitus, no limitations (Patient appears intoxicated and smells of alcohol), healthy appearing, alert and well nourished HENMT: COMMON NORMALS: normocephalic, atraumatic, hearing grossly normal bilaterally, external ears normal, Normal external nose present, moist oral mucous membranes and oropharynx normal HEAD & SCALP: normocephalic and atraumatic NOSE: Normal external nose present EXTERNAL EAR: Yes external ears normal Eye: COMMON NORMALS: Equal, round and reactive pupils present, EOMs intact bilaterally, conjunctivae normal and no scleral icterus CONJUNCTIVA: Yes conjunctivae normal PUPIL: Yes Equal, round and reactive pupils present Neck/C-Spine: COMMON NORMALS: full ROM, no lymphadenopathy, supple, no meningeal signs, no JVD and Thyroid normal THYROID: Thyroid normal Chest: COMMONS NORMALS: normal inspection of the chest and normal palpation of entire chest wall Resp: COMMON NORMALS: normal respiratory effort, No retractions, No use of accessory muscles and clear to auscultation bilaterally AUSCULTATION: clear to auscultation bilaterally Cardio: COMMON NORMALS: no JVD, regular rate, regular rhythm, S1 normal heart sound present, S2 normal heart sound present, No gallops present (Cardio), No clicks present (Cardio), No murmurs present (Cardio) and No rub (Cardio) RATE: regular rate RHYTHM: regular rhythm HEART SOUNDS: S1 normal heart sound present and S2 normal heart sound present GI: COMMON NORMALS: Normal to inspection, nondistended, normoactive bowel sounds present, Soft to palpation, non-tender, No hepatosplenomegaly present and no masses PALPATION: Yes Soft to palpation and Yes No hepatosplenomegaly present : COMMON NORMALS: Yes no CVA tenderness BLADDER/KIDNEY EXAM: Yes no CVA tenderness Back/Pelvis: COMMON NORMALS: no CVA tenderness Neuro: SENSORIUM/ORIENTATION: Yes alert MENINGEAL SIGNS: Yes no meningeal signs Course Vital Signs: Vital signs: Vital Signs Temperature 97.4 F L 07/14/23 18:44 Pulse Rate 106 H 07/14/23 18:44 Respiratory Rate 24 H 07/14/23 18:44 Blood Pressure 154/114 07/14/23 18:44 Pulse Oximetry 96 07/14/23 18:44 Oxygen Delivery Me thod Room Air 07/14/23 18:44 MDM - Psych Medical Decision Making Patient during her stay in ER continuously denied suicidal homicidal ideation father was brought back who had a long talk with patient. Father is okay with incompetent and will except patient in discharge. Patient denies drinking but definitely appears and smells of alcoholic intoxication. Patient will be discharged home with father. Differential Diagnosis Likely depression; Unlikely acute psychosis, chronic schizophrenia, suicidal ideation, bipolar disorder, drug-induced psychotic disorder or acute anxiety Medical Records I reviewed the patient's medical records. Lab Data I reviewed the patient's lab results. No radiology studies performed this visit Discharge Plan Discharge Patient Disposition: Home Clinical Impression: Acute alcoholic intoxication Qualifiers: Complication of substance-induced condition: uncomplicated Qualified Code(s): F10.920 - Alcohol use, unspecified with intoxication, uncomplicated Condition: Stable Prescriptions: No Action PNV [id number] [] 28 mg iron- 800 mcg Tablet 1 tab PO DAILY aspirin 81 mg Capsule 81 mg PO DAILY Discharge Orders: Discharge ED (Routine); Ordered 07/14/23 Ordered By: Steven Cadet Referrals: Tyesha Quinteros DO [Primary Care Provider] - 1 week Patient Instructions: Depression (ED), Alcohol Intoxication (ED) Activity Restrictions/Additional Instructions: You are being discharged to your father's care. Please do not consume any more alcoholic or intoxicating beverages. Please follow-up with your family practice doctor within the next week concerning your stress, anxiety and depression. Coding Level of Care Code ED Paste Mixing Supervisor for Lb Esquivel
[2023-07-14 19:35] VITALS: BP 154/114; PULSE 106; RESP 24; TEMP 36.3; O2SAT 96
== END 2023-07-14 19:36 | disposition home or self-care (01) ==
PROVIDERS: Emergency Provider Emergency Medicine; PCP Family Medicine
DX: F10.920 Alcohol use, unspecified with intoxication, uncomplicated (principal); Z79.82 Long term (current) use of aspirin
CPT/HCPCS: 99283

== ENCOUNTER 2023-12-30 20:59 | Inpatient (IN) | payer SELFPAY ==
[2023-12-30 21:06] VITALS: BP 141/118; PULSE 107; RESP 18; O2SAT 95; BMI 22.6
--- NOTE | 2023-12-30 21:19 | ED.C_ITS ---
HPI - Psych 2 General: Chief Complaint: Psychiatric Symptoms Stated Complaint: MHE Time Seen by Provider: 12/30/23 21:03 Source: patient Mode of arrival: ambulatory Limitations: no limitations History of Present Illness: 28-year-old female who has been telling her sister that she has been having thoughts of suicide sister called the vascular ultrasound technologist she told the vascular ultrasound technologist that she had been suicidal plan of overdosing and they did fill an affidavit patient now is being avoidant and she states that she is not suicidal currently she did admit to me she had thoughts past but she now denies being actively suicidal but had told the vascular ultrasound technologist that earlier today. Patient is very tearful while I am in the room with her Associated symptoms: Reports depression and suicidal ideation Review of Systems 2 Const: Denies: fever(s) or chills ENMT: Denies: throat pain or dental pain Card: Denies: chest pain Resp: Denies: dyspnea GI: Denies: abdominal pain, nausea, vomiting or diarrhea Musc: Denies: neck pain or back pain Skin/Breast: Denies: rash Neuro: Denies: headache(s) Psych: Reports: depression and suicidal ideation [facility] ED 2 Female Reproductive History: Date of last menstrual period: 12/30/23 Course 2 Vital Signs: Vital signs: Vital Signs Pulse Rate 107 H 12/30/23 21:06 Respiratory Rate 18 12/30/23 21:06 Blood Pressure 141/118 12/30/23 21:06 Pulse Oximetry 95 12/30/23 21:06 Oxygen Delivery Me thod Room Air 12/30/23 21:06 MDM - Psych Medical Decision Making 28-year-old female presented here with suicidal ideation she is placed under 96- hour hold she is medically cleared I spoke to Dr. Heard and will admit at this time. Medical Records I reviewed the patient's medical records. Lab Data I reviewed the patient's lab results. 12/30/23 21:38 12/30/23 21:38 Laboratory Results WBC 9.06 10^3/uL (3.29-11.43) 12/30/23 21:38 RBC 4.58 10^6/uL (3.85-5.65) 12/30/23 21:38 Hgb 14.20 g/dL (11.27-16.99) 12/30/23 21:38 Hct 41.3 % (36-47) 12/30/23 21:38 MCV 90.2 fl (85-98) 12/30/23 21:38 MCH 31.0 pg (27-33) 12/30/23 21:38 MCHC 34.4 g/dL (30-55) 12/30/23 21:38 RDW 14.1 % (12.1-15.1) 12/30/23 21:38 Plt Count 258 10^3/cmm (157-399) 12/30/23 21:38 MPV 9.3 fL (7.4-10.4) 12/30/23 21:38 Neut % (Auto) 59.3 % 12/30/23 21:38 Lymph % (Auto) 33.9 % 12/30/23 21:38 Stan[place]aus % (Auto) 4.1 % 12/30/23 21:38 Eos % (Auto) 1.2 % 12/30/23 21:38 Baso % (Auto) 1.1 % 12/30/23 21:38 Neut # (Auto) 5.37 10^3/uL (1.8-7.7) 12/30/23 21:38 Lymph # (Auto) 3.1 10^3/uL (0.8-4.8) 12/30/23 21:38 Stan[place]aus # (Auto) 0.4 10^3/uL (0.2-0.9) 12/30/23 21:38 Eos # (Auto) 0.1 10^3/uL (0.0-0.8) 12/30/23 21:38 Baso # (Auto) 0.1 10^3/uL (0.0-0.1) 12/30/23 21:38 Nucleated RBC % (auto) 0 % 12/30/23 21:38 Nucleated RBCs # 0.0 /100WBC 12/30/23 21:38 Sodium 145 mmol/L (136-145) 12/30/23 21:38 Potassium 4.2 mmol/L (3.5-5.1) 12/30/23 21:38 Chloride 107 mmol/L (98-107) 12/30/23 21:38 Carbon Dioxide 25 mmol/L (22-29) 12/30/23 21:38 Anion Gap 17.2 (5-19) 12/30/23 21:38 BUN 17 mg/dL (6-20) 12/30/23 21:38 Creatinine 0.6 mg/dL (0.5-0.9) 12/30/23 21:38 GFR Calculation 117.4 mL/min (90-130) 12/30/23 21:38 Total Bilirubin 0.2 mg/dL (0.15-1.2) 12/30/23 21:38 Alkaline Phosphatase 78 U/L (35-105) 12/30/23 21:38 Total Protein 7.4 g/dL (6.6-8.7) 12/30/23 21:38 Albumin 4.2 g/dL (3.5-5.2) 12/30/23 21:38 Globulin 3.2 g/dL (1.3-4.6) 12/30/23 21:38 No radiology studies performed this visit Discharge Plan Discharge Patient Disposition: Admitted As Inpatient Clinical Impression: Suicidal ideation Condition: Stable Coding Level of Care Code ED Telephonic Case Manager for Lb Esquivel
--- NOTE | 2023-12-30 21:37 | PC.NURSE ---
Dr Cornelius gave verbal order to put in additional 1mg Ativan IM once. Order put in.
[2023-12-30 21:44] LABS: Basophils # 0.1 10^3/uL (0.0-0.1); Basophils % 1.1 %; Eosinophils # 0.1 10^3/uL (0.0-0.8); Eosinophils % 1.2 %; Hematocrit 41.3 % (36-47); Lymphocytes # 3.1 10^3/uL (0.8-4.8); Lymphocytes % 33.9 %; Mean Corpuscular HGB Conc 34.4 g/dL (30-55); Mean Corpuscular Volume 90.2 fl (85-98); Mean Platelet Volume 9.3 fL (7.4-10.4); Monocytes # 0.4 10^3/uL (0.2-0.9); Monocytes % 4.1 %; Neutrophils # 5.37 10^3/uL (1.8-7.7); Neutrophils % 59.3 %; Nucleated Red Blood Cells % 0 %; Platelet Count 258 10^3/cmm (157-399); Red Blood Count 4.58 10^6/uL (3.85-5.65); Red Cell Distribution Width 14.1 % (12.1-15.1); White Blood Count 9.06 10^3/uL (3.29-11.43)
--- NOTE | 2023-12-30 21:52 | PC.NURSE ---
Pt served with 96 HH by this RN, Security Er physician and several staff members. Pt was resistive to care by staff, refusing all treatment and testing. Pt trying to bargain with physician to be released. Eventually pt became tearful and remorseful, agreeing to blood being drawn and NPU admission.
[2023-12-30] MEDS: LORazepam 2 mg/mL INJ 10 mL MDV IM (21:54)
--- NOTE | 2023-12-30 21:54 | PC.NURSE ---
Override for Ativan done in ER pyxis, 2 mg of Ativan was removed for pyxis. The skt med shows 4 mg, this was done as a mistake as nurse thought it was mg instead of ml. Pt received 2 mg of Ativan that was removed from pyxis.
[2023-12-30 22:08] LABS: Alanine Aminotransferase 35 U/L (0-33); Albumin Level 4.2 g/dL (3.5-5.2); Alkaline Phosphatase 78 U/L (35-105); Anion Gap 17.2 (5-19); Aspartate Amino Transferase 45 U/L (0-32); Blood Urea Nitrogen 17 mg/dL (6-20); Calcium 8.3 mg/dL (8.5-10.5); Carbon Dioxide 25 mmol/L (22-29); Chloride 107 mmol/L (98-107); Creatinine Clr Calc Pharmacy 122.8694; Globulin 3.2 g/dL (1.3-4.6); Glomerular Filtration Rate 117.4 mL/min (90-130); Glucose 119 mg/dL (65-115); Osmolality Calculated 303 mOsm/kg (285-295); Potassium 4.2 mmol/L (3.5-5.1); Sodium 145 mmol/L (136-145); Total Bilirubin 0.2 mg/dL (0.15-1.2); Total Protein 7.4 g/dL (6.6-8.7)
[2023-12-30 22:15] LABS: HCG, Serum Qual Negative (Negative)
[2023-12-30 22:16] LABS: Acetaminophen < 5.0 ug/mL (10-30); Salicylate < 0.3 mg/dL (3-10)
[2023-12-30] MEDS: nicotine 21 mg Patch 1 PATCH TRANSDERMA (22:16)
[2023-12-30 22:17] LABS: Alcohol Level 355 mg/dL (0-10)
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
[2023-12-30 23:15] VITALS: BP 136/91; PULSE 97; RESP 18; TEMP 36.7; O2SAT 94
[2023-12-30 23:54] LABS: Amphetamines Screen Urine Negative (Negative); Barbiturates Screen Urine Negative (Negative); Benzodiazepines Screen Urine Negative (Negative); Cocaine Screen Urine Negative (Negative); Opiate Screen Urine Negative (Negative); PCP Screen Urine Negative (Negative); THC Screen Urine Negative (Negative)
[2023-12-30 23:58] VITALS: BP 141/118; PULSE 107; RESP 18; O2SAT 95
[2023-12-31] MEDS: nicotine 4 mg lozenge MUCOUS MEM (00:35)
[2023-12-31] MEDS: trazodone 50 mg Tablet PO (00:35)
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
[2023-12-31 03:57] VITALS: BP 114/72; PULSE 109; RESP 16; O2SAT 94
[2023-12-31] MEDS: thiamine 100 mg Tablet PO (09:55)
[2023-12-31] MEDS: folic acid 1 mg Tablet PO (09:55)
[2023-12-31] MEDS: multivitamin therapeutic Tablet 1 TAB PO (09:55)
[2023-12-31] MEDS: OLANZapine 5 mg ODT PO (12:54)
[2023-12-31 14:00] VITALS: BP 150/94; PULSE 108; RESP 16; TEMP 36.6; O2SAT 96
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
[2023-12-31] MEDS: ondansetron 4 MG Tablet PO (15:55)
[2023-12-31] MEDS: citalopram 20 mg Tablet 10 MG PO (18:23)
[2023-12-31 19:42] VITALS: BP 157/103; PULSE 109; RESP 18; TEMP 37; O2SAT 98
[2023-12-31 23:55] VITALS: BP 165/122; PULSE 83; RESP 14; TEMP 36.9; O2SAT 97
[2023-12-31] MEDS: LORazepam 2 mg Tablet PO (23:55)
[2023-12-31 23:56] VITALS: BP 166/118
[2024-01-01] VITALS (10 sets, daily range): BP systolic 106–196; BP diastolic 69–136; PULSE 68–110; RESP 14–18; TEMP 36.7–36.9; O2SAT 95–98
--- NOTE | 2024-01-01 00:27 | PC.NURSE ---
At 2357, patient scored CIWA scale of 10. Patient admitted to anxiety, mild swats, headache, and audio sensitivity. Viatl sign as follows; BP 165/122 left arm while supine, 166/118 on right arm while sitting: P 83: R 14: T 98.4: o2 97% on room air. Ativan 2mg po given at this time. Patient educated that when she is feeling anxious or nauseated or just not right , to alert staff so she can be helped. Will continue to monitor closely.
--- NOTE | 2024-01-01 00:45 | PC.NURSE ---
PATIENT RESTING QUIETLY AT THIS TIME.
[2024-01-01] MEDS: cloNIDine 0.1 mg Tablet 0.100000000000000006 MG PO ×3 (04:55→23:50)
[2024-01-01] MEDS: LORazepam 2 mg Tablet PO ×2 (06:25→11:51)
--- NOTE | 2024-01-01 06:45 | PC.NURSE ---
AT 0400, PT WAS RESTING QUIETLY WITH BOTH EYES CLOSED, NO ACUTE DISTRESS OBSERVED. AT 0430, DR MONTOYA WAS NOTIFIED DUE TO PATIENTS ELEVATED BLOOD PRESSURE OF 181/136. ORDER FOR CLONIDINE 0.1MG EVERY 6 HOURS NEEDED. AT 0630, PATIENTS BLOOD PRESSURE WAS 196/129, CIWA SCORE OF 12. ATIVAN 2MG GIVEN AT THAT TIME. ON COMING NURSE ALERTED TO PATIENTS ELEVATED BP, CIWA SCORES AND MEDICATIONS GIVEN.
[2024-01-01] MEDS: multivitamin therapeutic Tablet 1 TAB PO (08:14)
[2024-01-01] MEDS: folic acid 1 mg Tablet PO (08:14)
[2024-01-01] MEDS: thiamine 100 mg Tablet PO (08:14)
--- NOTE | 2024-01-01 11:54 | PC.NURSE ---
PRN MED PT GIVEN 2MG ATIVAN, PER CIWA SCORE OF 12, B/P 148/99, HR 109, WILL CONTINUE TO MONITOR.
--- NOTE | 2024-01-01 14:48 | P.NPUPN_ITS ---
Subjective NPU 2 Subjective: 28-year-old female admitted involuntaril y with a history of generalized anxiety disorder, PTSD, and major depressive disorder in the context of use of alcohol abuse. The patient did appear to have some alcohol-related withdrawal symptoms requiring the use of Ativan. She had required clonidine due to her elevated blood pressure. The patient had reported that she wished to see her child and continue to appear tearful and isolative on the milieu. She had continued to minimize the amount of alcohol she was using on a regular basis despite stating that she could easily consume half a case of beer without any consequences of being inebriated. The patient reported low energy. She reported no side effects from her Celexa and had reported good response to Celexa in the past. She was agreeable to considering outpatient psychotherapy as well as medication management. Mental Status Exam 2 MSE Comments: Patient is a casually dressed white female with fair hygiene who appeared her stated age. There was no evidence of any abnormal involuntary motor movements tics or tremors appreciated. There was moderate psychomotor retardation. Her speech was monotone in quality and normal in rate and volume. Her thought process was linear logical and goal-directed. Her thought content showed no evidence of active homicidal or suicidal ideation. She did not appear to be responding to internal stimuli. There was no clear evidence of delusional thinking. Her mood was again endorsed as depressed. Her affect remained tearful, dysphoric and mood congruent. Her recent and remote memory appeared grossly intact. Her attention span appeared fair. Her insight was limited. Her judgment was poor. Her impulse control appeared limited at this time. Vitals/I&O/Wt Last Vital Signs Temp 98.4 F 01/01/24 13:53 Pulse 108 H 01/01/24 13:53 Resp 16 01/01/24 13:53 BP 160/102 01/01/24 13:55 Pulse Ox 97 01/01/24 13:53 O2 Del Method Room Air 01/01/24 11:38 Weight last 48 hrs Weight 59.874 kg Data NPU 12/30/23 21:38 12/30/23 21:38 A&P Assessment and plan (1) Major depressive disorder, recurrent: (2) Suicidal ideation: (3) Alcohol use disorder: (4) WESTON (generalized anxiety disorder): (5) Panic attacks: (6) PTSD (post-traumatic stress disorder): Plan 28-year-old female reports of a long history of major depressive disorder currently endorsing depressed mood and passive suicidal ideation with recurrent depression for greater than 2 years with increased stressors in the home and recent use of alcohol. #1.? Engage patient in individual,milieu and group therapy. #2?? Recommend sober living treatment at the highest level of care to which the patient is willing to commit #3??? CIWA for alcohol withdrawal-continue ativan. #4?? TO-15 minute checks #5?? Will attempt to gather collateral information #6 Celexa 20mg daily. Start Toprol XL 25mg daily to target HTN. Involuntary Hold Information 2 96 Hour Hold: 96 Hour Involuntary Admission: Yes 96 Hour Hold Ending Date: 01/03/24 96 Hour Hold Ending Time: 21:15 Attestations NPU 2 Medical Necessity Statement*: Inpatient hospitalization is medically necessary and deemed to ?be ?the clinically appropriate intervention ?at this time.? We will monitor/initiate medications and make changes as indicated.? The patient?s likely length of stay 3-5 days. Coding Level of Care Code Acute Code for Chg Fwd Diagnoses Major depressive disorder, recurrent F33.9 Suicidal ideation R45.851 Alcohol use disorder F10.90 WESTON (generalized anxiety disorder) F41.1 Panic attacks F41.0 PTSD (post-traumatic stress disorder) F43.10
[2024-01-01] MEDS: metoprolol succinate ER (24 HR) 25 mg Tablet PO (15:20)
[2024-01-01] MEDS: citalopram 20 mg Tablet PO (20:13)
[2024-01-02] VITALS (8 sets, daily range): BP systolic 144–164; BP diastolic 94–119; PULSE 74–93; RESP 16–20; TEMP 36.6–37; O2SAT 98–99
[2024-01-02] MEDS: metoprolol succinate ER (24 HR) 25 mg Tablet PO (09:40)
[2024-01-02] MEDS: thiamine 100 mg Tablet PO (09:40)
[2024-01-02] MEDS: multivitamin therapeutic Tablet 1 TAB PO (09:40)
[2024-01-02] MEDS: folic acid 1 mg Tablet PO (09:40)
[2024-01-02] MEDS: OLANZapine 5 mg ODT PO (10:09)
--- NOTE | 2024-01-02 13:58 | P.NPUPN_ITS ---
Subjective NPU 2 Subjective: 28-year-old female admitted involuntaril y with a history of generalized anxiety disorder, PTSD, and major depressive disorder in the context of use of alcohol abuse. Patient had reported that she would like help regarding her alcohol consumption. She had stated that she would like to consider outpatient substance abuse treatment and a medication to reduce cravings. She reported no side effects from her Celexa at this time. She had continued to state that she felt sad that she could not see her children. She had not endorsed any recent history of depression from her most recent . She denied having any panic attacks. She had reported that she continued to struggle with energy and motivation but states that she was hopeful about getting help with her mood and her alcohol related issues. Patient was able to attend groups today without complaints. Mental Status Exam 2 MSE Comments: Patient is a casually dressed white female with fair hygiene who appeared her stated age. There was no evidence of any abnormal involuntary motor movements tics or tremors appreciated. There was mild psychomotor retardation. Her speech was monotone in quality and normal in rate and volume. Her thought process was linear,logical and goal-directed. Her thought content showed no evidence of active homicidal or suicidal ideation. She did not appear to be responding to internal stimuli. There was no clear evidence of delusional thinking. Her mood was again endorsed as depressed. Her affect remained tearful, dysphoric and mood congruent. Her recent and remote memory appeared grossly intact. Her attention span appeared fair. Her insight was improving. Her judgment was poor. Her impulse control appeared limited at this time. Vitals/I&O/Wt Last Vital Signs Temp 98.4 F 01/01/24 16:00 Pulse 92 01/02/24 06:35 Resp 17 01/02/24 06:35 BP 161/119 01/02/24 06:35 Pulse Ox 98 01/02/24 06:35 O2 Del Method Room Air 01/02/24 06:35 Data NPU 12/30/23 21:38 12/30/23 21:38 A&P Assessment and plan (1) Major depressive disorder, recurrent: (2) Suicidal ideation: (3) Alcohol use disorder: (4) WESTON (generalized anxiety disorder): (5) Panic attacks: (6) PTSD (post-traumatic stress disorder): Plan 28-year-old female reports of a long history of major depressive disorder currently endorsing depressed mood and passive suicidal ideation with recurrent depression for greater than 2 years with increased stressors in the home and recent use of alcohol. #1.? Engage patient in individual,milieu and group therapy. #2?? Recommend sober living treatment at the highest level of care to which the patient is willing to commit #3??? CIWA for alcohol withdrawal-continue ativan. No use of ativan reported today. #4?? TO-15 minute checks #5?? Will attempt to gather collateral information #6 Celexa 20mg daily. Increase Toprol XL 50mg daily to target HTN. Added naltrexone oral 50mg daily to target alcohol withdrawal symptoms with plan to transition to Vivitrol IM 380mg monthly if tolerated. Involuntary Hold Information 2 96 Hour Hold: 96 Hour Involuntary Admission: Yes 96 Hour Hold Ending Date: 01/03/24 96 Hour Hold Ending Time: 21:15 Attestations NPU 2 Medical Necessity Statement*: Inpatient hospitalization is medically necessary and deemed to ?be ?the clinically appropriate intervention ?at this time.? We will monitor/initiate medications and make changes as indicated.? The patient?s likely length of stay 1-2 days. Coding Level of Care Code Acute Code for g Fwd Diagnoses Major depressive disorder, recurrent F33.9 Suicidal ideation R45.851 Alcohol use disorder F10.90 WESTON (generalized anxiety disorder) F41.1 Panic attacks F41.0 PTSD (post-traumatic stress disorder) F43.10
[2024-01-02] MEDS: naltrexone hcl 50 mg Tablet PO (14:18)
[2024-01-02] MEDS: nicotine 4 mg lozenge MUCOUS MEM (15:54)
[2024-01-02] MEDS: hyDROXYzine 25 mg Capsule 50 MG PO ×2 (15:54→20:01)
--- NOTE | 2024-01-02 16:02 | PC.NURSE ---
Pt had a nice visit with her boyfriend and sister today.
[2024-01-02] MEDS: cloNIDine 0.1 mg Tablet 0.100000000000000006 MG PO (16:51)
--- NOTE | 2024-01-02 18:25 | PC.NURSE ---
ROOM SEARCHED BY STAFF NO CONTRABAND FOUND.
[2024-01-02] MEDS: trazodone 50 mg Tablet PO ×2 (20:01→21:43)
[2024-01-02] MEDS: citalopram 20 mg Tablet PO (20:01)
[2024-01-03] VITALS: BP 153/99; PULSE 78; RESP 14; O2SAT 98
[2024-01-03 04:00] VITALS: BP 145/88; PULSE 79; RESP 16; O2SAT 99
[2024-01-03] MEDS: nicotine 2 mg Gum BUCCAL (08:33)
[2024-01-03] MEDS: folic acid 1 mg Tablet PO (08:33)
[2024-01-03] MEDS: metoprolol succinate ER (24 HR) 25 mg Tablet 50 MG PO (08:34)
[2024-01-03] MEDS: naltrexone hcl 50 mg Tablet PO (08:34)
[2024-01-03] MEDS: thiamine 100 mg Tablet PO (08:34)
[2024-01-03] MEDS: multivitamin therapeutic Tablet 1 TAB PO (08:34)
--- NOTE | 2024-01-03 10:47 | PC.NURSE ---
Verbally ordered Vivitrol 380mg injection at [facility] in [place], per verbal order from Dr. Singh.
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
[2024-01-03 11:47] VITALS: BP 145/88; PULSE 79; RESP 16; O2SAT 99
== END 2024-01-03 13:25 | disposition home or self-care (01) | DRG 897 ==
LOC: ER 21:49 → NP 23:13
PROVIDERS: Admitting Provider Psychiatry & Neurology Psychiatry; Emergency Provider Emergency Medicine; PCP Family Medicine; Visit Provider Psychiatry & Neurology Psychiatry
DX: F10.129 Alcohol abuse with intoxication, unspecified (principal); Y90.8 Blood alcohol level of 240 mg/100 ml or more; F41.1 Generalized anxiety disorder; I10 Essential (primary) hypertension; F43.10 Post-traumatic stress disorder, unspecified; F41.0 Panic disorder [episodic paroxysmal anxiety]; Z62.810 Personal history of physical and sexual abuse in childhood; Z91.419 Personal history of unspecified adult abuse; Z63.0 Problems in relationship with spouse or partner
CPT/HCPCS: 36415; 80053; 80306; 80307; 84703; 85025; 96372; 97150; 97165; 99285; J2060; Q0162

== ENCOUNTER 2024-01-30 22:35 | Inpatient (IN) | payer SELFPAY ==
[2024-01-30 22:45] VITALS: BP 105/81; PULSE 81; RESP 19; TEMP 36.7; O2SAT 99
--- NOTE | 2024-01-30 23:01 | ED.C_ITS ---
Documented by User: TENNILLE Soto 01/31/24 00:56 HPI - Psych 2 General: Chief Complaint: Psychiatric Symptoms Stated Complaint: ETOH Time Seen by Provider: 01/30/24 22:55 History of Present Illness: 28-year-old female comes in today for co mplaints of alcohol intoxication and overdose on home medications. Patient had her prescriptions filled on 02 January and bottles brought in with her were all empty. Patient did endorse drinking alcohol yesterday. Patient is very somnolent. Vital signs are stable. Patient does endorse using tobacco but denies marijuana or other drug use. Patient did report that she was trying to harm herself. Associated symptoms: Reports suicidal ideation Review of Systems 2 General: Reports: 10 or more systems reviewed and unremarkable except in HPI and below Psych: Reports: suicidal ideation PFSH ED 2 PFSH: Medical History Psychiatric care Physical Exam 2 Const: COMMON NORMALS: alert HENMT: COMMON NORMALS: normocephalic and atraumatic HEAD & SCALP: n ormocephalic and atraumatic Neck/C-Spine: COMMON NORMALS: full ROM Resp: COMMON NORMALS: normal respiratory effort and clear to auscultation bilaterally AUSCULTATION: clear to auscultation bilaterally Cardio: COMMON NORMALS: regular rate and regular rhythm RATE: regular rate RHYTHM: regular rhythm GI: COMMON NORMALS: Soft to palpation and non-tender PALPATION: Yes Soft to palpation : COMMON NORMALS: Yes no CVA tenderness BLADDER/KIDNEY EXAM: Yes no CVA tenderness Back/Pelvis: COMMON NORMALS: no CVA tenderness Neuro: SENSORIUM/ORIENTATION: Yes alert Course 2 Vital Signs: Vital signs: Vital Signs Temperature 98.1 F 01/30/24 22:45 Pulse Rate 81 01/30/24 22:45 Respiratory Rate 19 H 01/30/24 22:45 Blood Pressure 105/81 01/30/24 22:45 Pulse Oximetry 99 01/30/24 22:45 Oxygen Delivery Me thod Room Air 01/30/24 22:45 MDM - Psych Medical Decision Making 28-year-old female comes in today for concerns of overdose on medications. Patient is somnolent but does answer questions. Patient did endorse taking the rest of her medications. Patient did have prescription for citalopram, metoprolol, trazodone, naltrexone, and vitamins that were filled on the 12th of last month. Vitals were emptied and patient was brought in today. Respirations are even lungs are clear to auscultation. Heart rate is regular. Skin is warm and dry. Vital signs are normal. Differential diagnosis includes alcohol intoxication, drug overdose, respiratory failure, bradycardia, suicidal ideation. CBC CMP was unremarkable. EKG showed sinus rhythm in the 80s. Reviewed exam with Dr. Jarvis who accepted patient for ICU admission. Lab Data 01/30/24 23:07 01/30/24 23:[address] 01/30/24 23:24 IMPRESSION: No large territorial infarct or intracranial bleed. Laboratory Results WBC 8.42 10^3/uL (3.29-11.43) 01/30/24 23:07 RBC 4.14 10^6/uL (3.85-5.65) 01/30/24 23:07 Hgb 13.00 g/dL (11.27-16.99) 01/30/24 23:07 Hct 38.8 % (36-47) 01/30/24 23:07 MCV 93.7 fl (85-98) 01/30/24 23:07 MCH 31.4 pg (27-33) 01/30/24 23:07 MCHC 33.5 g/dL (30-55) 01/30/24 23:07 RDW 14.4 % (12.1-15.1) 01/30/24 23:07 Plt Count 144 10^3/cmm (157-399) L 01/30/24 23:07 MPV 9.5 fL (7.4-10.4) 01/30/24 23:07 Neut % (Auto) 83.4 % 01/30/24 23:07 Lymph % (Auto) 10.7 % 01/30/24 23:07 [place] % (Auto) 4.4 % 01/30/24 23:07 Eos % (Auto) 0.5 % 01/30/24 23:07 Baso % (Auto) 0.5 % 01/30/24 23:07 Neut # (Auto) 7.03 10^3/uL (1.8-7.7) 01/30/24 23:07 Lymph # (Auto) 0.9 10^3/uL (0.8-4.8) 01/30/24 23:07 [place] # (Auto) 0.4 10^3/uL (0.2-0.9) 01/30/24 23:07 Eos # (Auto) 0.0 10^3/uL (0.0-0.8) 01/30/24 23:07 Baso # (Auto) 0.0 10^3/uL (0.0-0.1) 01/30/24 23:07 Nucleated RBC % (auto) 0 % 01/30/24 23:07 Nucleated RBCs # 0.0 /100WBC 01/30/24 23:07 Sodium 141 mmol/L (136-145) 01/30/24 23:07 Potassium 4.3 mmol/L (3.5-5.1) 01/30/24 23:07 Chloride 107 mmol/L (98-107) 01/30/24 23:07 Carbon Dioxide 22 mmol/L (22-29) 01/30/24 23:07 Anion Gap 16.3 (5-19) 01/30/24 23:07 BUN 18 mg/dL (6-20) 01/30/24 23:07 Creatinine 0.7 mg/dL (0.5-0.9) 01/30/24 23:07 GFR Calculation 98.3 mL/min (90-130) 01/30/24 23:07 Glucose 80 mg/dL (65-115) 01/30/24 23:07 Calculated Osmolality 293 mOsm/kg (285-295) 01/30/24 23:07 Lactic Acid 1.8 mmol/L (0.5-2.2) 01/30/24 23:07 Calcium 8.6 mg/dL (8.5-10.5) 01/30/24 23:07 Magnesium 1.8 mg/dL (1.7-2.3) 01/30/24 23:07 Total Bilirubin 0.2 mg/dL (0.15-1.2) 01/30/24 23:07 AST 26 U/L (0-32) 01/30/24 23:07 ALT 23 U/L (0-33) 01/30/24 23:07 Alkaline Phosphatase 53 U/L (35-105) 01/30/24 23:07 Creatine Kinase 104 U/L (26-192) 01/30/24 23:07 Troponin T Baseline < 6 ng/L (0-10) 01/30/24 23:07 Total Protein 7.3 g/dL (6.6-8.7) 01/30/24 23:07 Albumin 4.2 g/dL (3.5-5.2) 01/30/24 23:07 Globulin 3.1 g/dL (1.3-4.6) 01/30/24 23:07 TSH 0.82 uIU/mL (0.27-4.20) 01/30/24 23:07 Ser , Semi-Qnt 1.00 mIU/mL 01/30/24 23:07 Salicylates < 0.3 mg/dL (3-10) L 01/30/24 23:07 Acetaminophen < 5.0 ug/mL (10-30) L 01/30/24 23:07 Ethyl Alcohol 187 mg/dL (0-10) H 01/30/24 23:07 XR interpretation done by ED provider, pending radiology final review EKG Data EKG 1: I personally reviewed and interpreted this EKG as follows: EKG interpretation date: 01/30/24 EKG interpretation time: 23:32 Prior EKG tracings: not available for review Interpretation: EKG shows a regular rhythm at [address] elevation or ectopy is noted. No prior exam was available for comparison. Mild artifact is present. Computer generated interpretation: Sinus rhythm, normal EKG, unconfirmed report. Discharge Plan Discharge Patient Disposition: Admitted As Inpatient Admit Provider: Ephraim Jarvis Clinical Impression: Alcohol use disorder Overdose Qualifiers: Encounter type: initial encounter Injury intent: intentional self-harm Q ualified Code(s): T50.902A - Poisoning by unspecified drugs, medicaments and biological substances, intentional self-harm, initial encounter Condition: Stable Coding Level of Care Code ED Airfield Operations Specialist for Chg Fwd Documented by User: Steven Cadet 01/31/24 01:31 HPI - Psych 2 General: Chief Complaint: Psychiatric Symptoms Stated Complaint: ETOH Time Seen by Provider: 01/30/24 22:55 [facility] ED 2 PFSH: Medical History Psychiatric care Course 2 Vital Signs: Vital signs: Vital Signs Temperature 98.1 F 01/30/24 22:45 Pulse Rate 81 01/30/24 22:45 Respiratory Rate 19 H 01/30/24 22:45 Blood Pressure 105/81 01/30/24 22:45 Pulse Oximetry 99 01/30/24 22:45 Oxygen Delivery Me thod Room Air 01/30/24 22:45 MDM - Psych Medical Decision Making 28-year-old female comes in today for concerns of overdose on medications. Patient is somnolent but does answer questions. Patient did endorse taking the rest of her medications. Patient did have prescription for citalopram, metoprolol, trazodone, naltrexone, and vitamins that were filled on the 12th of last month. Vitals were emptied and patient was brought in today. Respirations are even lungs are clear to auscultation. Heart rate is regular. Skin is warm and dry. Vital signs are normal. Differential diagnosis includes alcohol intoxication, drug overdose, respiratory failure, bradycardia, suicidal ideation. CBC CMP was unremarkable. EKG showed sinus rhythm in the 80s. Reviewed exam with Dr. Jarvis who accepted patient for ICU admission. Patient found on the floor actively seizing, noted to have hematoma above left eye patient had vomited. Patient came out of the seizure and was alert and oriented enough to tell nursing staff that she has a history of seizures but she is on no medicine. We will get a head CT due to the new trauma. Lab Data 01/30/24 23:07 01/30/24 23:[address] 01/30/24 23:24 IMPRESSION: No large territorial infarct or intracranial bleed. Laboratory Results WBC 8.42 10^3/uL (3.29-11.43) 01/30/24 23:07 RBC 4.14 10^6/uL (3.85-5.65) 01/30/24 23:07 Hgb 13.00 g/dL (11.27-16.99) 01/30/24 23:07 Hct 38.8 % (36-47) 01/30/24 23:07 MCV 93.7 fl (85-98) 01/30/24 23:07 MCH 31.4 pg (27-33) 01/30/24 23:07 MCHC 33.5 g/dL (30-55) 01/30/24 23:07 RDW 14.4 % (12.1-15.1) 01/30/24 23:07 Plt Count 144 10^3/cmm (157-399) L 01/30/24 23:07 MPV 9.5 fL (7.4-10.4) 01/30/24 23:07 Neut % (Auto) 83.4 % 01/30/24 23:07 Lymph % (Auto) 10.7 % 01/30/24 23:07 [place] % (Auto) 4.4 % 01/30/24 23:07 Eos % (Auto) 0.5 % 01/30/24 23:07 Baso % (Auto) 0.5 % 01/30/24 23:07 Neut # (Auto) 7.03 10^3/uL (1.8-7.7) 01/30/24 23:07 Lymph # (Auto) 0.9 10^3/uL (0.8-4.8) 01/30/24 23:07 [place] # (Auto) 0.4 10^3/uL (0.2-0.9) 01/30/24 23:07 Eos # (Auto) 0.0 10^3/uL (0.0-0.8) 01/30/24 23:07 Baso # (Auto) 0.0 10^3/uL (0.0-0.1) 01/30/24 23:07 Nucleated RBC % (auto) 0 % 01/30/24 23:07 Nucleated RBCs # 0.0 /100WBC 01/30/24 23:07 Sodium 141 mmol/L (136-145) 01/30/24 23:07 Potassium 4.3 mmol/L (3.5-5.1) 01/30/24 23:07 Chloride 107 mmol/L (98-107) 01/30/24 23:07 Carbon Dioxide 22 mmol/L (22-29) 01/30/24 23:07 Anion Gap 16.3 (5-19) 01/30/24 23:07 BUN 18 mg/dL (6-20) 01/30/24 23:07 Creatinine 0.7 mg/dL (0.5-0.9) 01/30/24 23:07 GFR Calculation 98.3 mL/min (90-130) 01/30/24 23:07 Glucose 80 mg/dL (65-115) 01/30/24 23:07 Calculated Osmolality 293 mOsm/kg (285-295) 01/30/24 23:07 Lactic Acid 1.8 mmol/L (0.5-2.2) 01/30/24 23:07 Calcium 8.6 mg/dL (8.5-10.5) 01/30/24 23:07 Magnesium 1.8 mg/dL (1.7-2.3) 01/30/24 23:07 Total Bilirubin 0.2 mg/dL (0.15-1.2) 01/30/24 23:07 AST 26 U/L (0-32) 01/30/24 23:07 ALT 23 U/L (0-33) 01/30/24 23:07 Alkaline Phosphatase 53 U/L (35-105) 01/30/24 23:07 Creatine Kinase 104 U/L (26-192) 01/30/24 23:07 Troponin T Baseline < 6 ng/L (0-10) 01/30/24 23:07 Total Protein 7.3 g/dL (6.6-8.7) 01/30/24 23:07 Albumin 4.2 g/dL (3.5-5.2) 01/30/24 23:07 Globulin 3.1 g/dL (1.3-4.6) 01/30/24 23:07 TSH 0.82 uIU/mL (0.27-4.20) 01/30/24 23:07 Ser , Semi-Qnt 1.00 mIU/mL 01/30/24 23:07 Salicylates < 0.3 mg/dL (3-10) L 01/30/24 23:07 Acetaminophen < 5.0 ug/mL (10-30) L 01/30/24 23:07 Ethyl Alcohol 187 mg/dL (0-10) H 01/30/24 23:07 Discharge Plan Discharge Patient Disposition: Admitted As Inpatient Admit Provider: Ephraim Jarvis Clinical Impression: Alcohol use disorder Overdose Qualifiers: Encounter type: initial encounter Injury intent: intentional self-harm Q ualified Code(s): T50.902A - Poisoning by unspecified drugs, medicaments and biological substances, intentional self-harm, initial encounter Condition: Stable Coding Level of Care Code ED Airfield Operations Specialist for Lb Esquivel
[2024-01-30 23:12] LABS: Basophils % 0.5 %; Eosinophils % 0.5 %; Hematocrit 38.8 % (36-47); Lymphocytes # 0.9 10^3/uL (0.8-4.8); Lymphocytes % 10.7 %; Mean Corpuscular HGB Conc 33.5 g/dL (30-55); Mean Corpuscular Hemoglobin 31.4 pg (27-33); Mean Corpuscular Volume 93.7 fl (85-98); Mean Platelet Volume 9.5 fL (7.4-10.4); Monocytes # 0.4 10^3/uL (0.2-0.9); Monocytes % 4.4 %; Neutrophils # 7.03 10^3/uL (1.8-7.7); Neutrophils % 83.4 %; Nucleated Red Blood Cells % 0 %; Platelet Count 144 10^3/cmm (157-399); Red Blood Count 4.14 10^6/uL (3.85-5.65); Red Cell Distribution Width 14.4 % (12.1-15.1); White Blood Count 8.42 10^3/uL (3.29-11.43)
[2024-01-30] MEDS: lactated ringers 1,000 ML 999 ML IV (23:19)
--- NOTE | 2024-01-30 23:24 | CTR_ITS ---
PROCEDURE INFORMATION: Exam: CT Head Without Contrast Exam date and time: 01/30/2024 11:51 PM Age: 28 years old Clinical indication: Altered mental status/memory loss; Additional info: Drug od, AMS TECHNIQUE: Imaging protocol: Computed tomography of the head without contrast. Radiation optimization: All CT scans at this facility use at least one of these dose optimization techniques: automated exposure control; mA and/or kV adjustment per patient size (includes targeted exams where dose is matched to clinical indication); or iterative reconstruction. COMPARISON: No relevant prior studies available. RADIATION DOSE METRICS: Total DLP (mGy-cm): 1009.4 FINDINGS: Brain: Mineralization of the right basal ganglia, age-related. Low-lying cerebellar tonsils by 3 mm. No recent infarct, intracranial bleed or mass. Cerebral ventricles: No ventriculomegaly. Paranasal sinuses: Visualized sinuses are unremarkable. No fluid levels. Mastoid air cells: Visualized mastoid air cells are well aerated. Bones: Unremarkable. No acute fracture. Soft tissues: Unremarkable. CT/CT head wo con* [id number] IMPRESSION: No large territorial infarct or intracranial bleed.
--- NOTE | 2024-01-30 23:26 | ECG_ITS ---
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 Measurements Intervals [place] Rate: 81 P: 80 SC: 156 QRS: 71 QRSD: 85 T: 47 QT: 418 QTc: 488 Interpretive Statements SINUS RHYTHM Compared to ECG 02/20/2021 12:51:30 No significant changes Electronically Signed On 01-31-2024 9:20:14 CDT by Cristofer De La Rosa M.D. [email or web address] hospitalUnited LED Corporationpromedica [facility].[employer]/store/OM/[id number]
[2024-01-30 23:29] LABS: Alanine Aminotransferase 23 U/L (0-33); Albumin Level 4.2 g/dL (3.5-5.2); Alcohol Level 187 mg/dL (0-10); Alkaline Phosphatase 53 U/L (35-105); Anion Gap 16.3 (5-19); Aspartate Amino Transferase 26 U/L (0-32); Blood Urea Nitrogen 18 mg/dL (6-20); Calcium 8.6 mg/dL (8.5-10.5); Carbon Dioxide 22 mmol/L (22-29); Chloride 107 mmol/L (98-107); Creatinine Clr Calc Pharmacy 103.8377; Globulin 3.1 g/dL (1.3-4.6); Glomerular Filtration Rate 98.3 mL/min (90-130); Glucose 80 mg/dL (65-115); Osmolality Calculated 293 mOsm/kg (285-295); Potassium 4.3 mmol/L (3.5-5.1); Sodium 141 mmol/L (136-145); Total Bilirubin 0.2 mg/dL (0.15-1.2); Total Protein 7.3 g/dL (6.6-8.7)
[2024-01-30 23:30] LABS: Acetaminophen < 5.0 ug/mL (10-30); Salicylate < 0.3 mg/dL (3-10)
[2024-01-31] VITALS (62 sets, daily range): BP systolic 97–156; BP diastolic 60–110; PULSE 72–89; RESP 13–32; TEMP 36.4–37.9; O2SAT 90–98; BMI 21.6
--- NOTE | 2024-01-31 00:55 | XRR_ITS ---
PROCEDURE INFORMATION: Exam: XR Chest Exam date and time: 01/31/2024 3:31 AM Age: 28 years old Clinical indication: Other: Od; Additional info: Overdose TECHNIQUE: Imaging protocol: Radiologic exam of the chest. Views: 1 view. COMPARISON: CR XR chest 1V portable [id number] 02/20/2021 10:45 AM FINDINGS: Lungs: No CHF/pulmonary edema. Visible lungs appear essentially clear. Pleural spaces: No visible pneumothorax. No definite pleural fluid. Heart/Mediastinum: Heart size is within normal limits. Bones/joints: No significant acute finding. XR/XR chest 1V portable [id number] IMPRESSION: 1. No definite evidence for CHF or pneumonia/aspiration. 2. Other findings discussed above.
--- NOTE | 2024-01-31 00:56 | P.HP_ITS ---
Providers/Chief Complaint 2 Admitting Physician: Ephraim Jarvis MD Primary Care Provider: Tyesha Quinteros DO Chief Complaint: ETOH History of Present Illness Sarina Portillo is a 28 year old female with a past medical history of major depressive disorder, history of alcoholism, history of overdose most recently a month ago, who presents [facility] due to intentional drug overdose. Currently patient is alert to person, to place, not to time she is quite drowsy, whenever I asked her question, she frequently requires reorientation when she turns her head away for me at times refusing to answer. According to nursing staff she voiced that she took pills in order to harm herself. When asked her did she take metoprolol intentionally to kill herself she did not really give me an answer I asked the same of the Celexa, trazodone, naltrexone, but she never gave me a straightforward answer. She is able to tell me her name she is able to time where she is, she does not answer any questions about suicidal homicidal ideation. When asked her when her last alcohol drink was, she did not give me an answer. According to ER provider, patient had her prescriptions filled January 02 bottles were brought in with her which were all empty, she endorsed drinking alcohol yesterday Review of Systems 2 General: Reports: ROS unobtainable due to mental status Medications/Allergies Home Medications Medication Instructions Recorded Confirmed Last Taken Type citalopram 20 mg tablet 30 mg (1.5 x 20 mg) PO BEDTIME 30 01/03/24 01/07/24 Unknown Rx days #45 tabs folic acid 1 mg tablet 1 mg PO DAILY 30 days #30 tabs 01/03/24 01/07/24 Unknown Rx metoprolol succinate 25 mg 50 mg (2 x 25 mg) PO DAILY 30 days 01/03/24 01/07/24 Unknown Rx tablet,extended release 24 hr #60 tabs naltrexone 50 mg tablet 50 mg PO DAILY 30 days #30 tabs 01/03/24 01/07/24 Unknown Rx thiamine mononitrate (vit B1) 100 100 mg PO DAILY 30 days #30 tabs 01/03/24 01/07/24 Unknown Rx mg tablet (Vitamin B-1 (mononitrate)) trazodone 50 mg tablet 50 mg PO BEDTIME PRN Sleep 30 days 01/03/24 01/07/24 Unknown Rx #30 tabs naltrexone microspheres 380 mg 380 mg IM ONCE 28 days #1 ea 01/08/24 Unknown Rx intramuscular suspension,extended release (Vivitrol) Allergies Allergy/AdvReac Type Severity Reaction Status Date / Time ciprofloxacin [From Cipro] Allergy Unknown Verified 01/30/24 22:59 PFSH Acute 2 PFSH: Medical History Psychiatric care Vitals/I&O/Wt Last Vital Signs Temp 98.1 F 01/30/24 22:45 Pulse 81 01/30/24 22:45 Resp 19 H 01/30/24 22:45 BP 105/81 01/30/24 22:45 Pulse Ox 99 01/30/24 22:45 O2 Del Method Room Air 01/30/24 22:45 Weight last 48 hrs Weight 54.431 kg Physical Exam 2 Const: COMMON NORMALS: no acute distress EXAM LIMITATIONS: altered mental status ORIENTATION/CONSCIOUSNESS: Yes awake, Yes oriented to person and Yes oriented to place; not oriented to time OTHER: Refuses to answer questions turns her head away from me at times does not follow neurologic testing at times HENMT: COMMON NORMALS: normocephalic HEAD & SCALP: normocephalic Eye: COMMON NORMALS: Equal, round and reactive pupils present Neck/C-Spine: COMMON NORMALS: no JVD Resp: COMMON NORMALS: normal respiratory effort, No retractions, No use of accessory muscles and clear to auscultation bilaterally AUSCULTATION: clear to auscultation bilaterally Cardio: COMMON NORMALS: no JVD, regular rate, regular rhythm, S1 normal heart sound present and S2 normal heart sound present RATE: regular rate RHYTHM: regular rhythm HEART SOUNDS: S1 normal heart sound present and S2 normal heart sound present GI: COMMON NORMALS: Normal to inspection, nondistended, normoactive bowel sounds present, Soft to palpation and non-tender Extremity: COMMON NORMALS: no calf tenderness and no pedal edema Neuro: OTHER: Able to follow simple commands such as smiling for me, raising both arms wiggling her toes, does not want to follow any other neurologic testing Data 01/30/24 23:07 01/30/24 23:07 A&P Assessment and plan (1) Intentional drug overdose: (2) Alcohol use disorder: (3) Major depressive disorder, recurrent: Plan Intentional drug overdose, with history of major depressive disorder, with history of intentional drug overdose in the past most recent hospitalization 12/30/2023 ? Plan ? Discussed with the ER provider, ER provider will consult psychiatry, discussed case with poison control, will place 96-hour hold ? Will monitor in the ICU ? Suicide precautions ? Telemetry monitoring ? Monitor serum electrolytes ? Monitor heart rate, monitor heart intervals ? Once medically stable can moved n.p.u., await psychiatry's recommendations ? Alcohol use disorder monitor for alcohol withdrawal [facility] protocol Attestations 2 Medical Necessity Statement*: Patient requires hospitalization, inpatient, greater than 2 midnights, for alcohol use disorder, intentional drug overdose Diagnoses Intentional drug overdose T50.902A Alcohol use disorder F10.90 Major depressive disorder, recurrent F33.9
[2024-01-31 01:00] LABS: Lactic Sepsis W/Reflex 1.8 mmol/L (0.5-2.2)
--- NOTE | 2024-01-31 01:04 | ECG_ITS ---
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 Measurements Intervals [place] Rate: 82 P: 51 MT: 140 QRS: 65 QRSD: 89 T: 33 QT: 404 QTc: 472 Interpretive Statements SINUS RHYTHM NONSPECIFIC T-WAVE ABNORMALITY Compared to ECG 01/30/2024 23:26:12 T-wave abnormality now present Electronically Signed On 01-31-2024 9:20:12 CDT by Cristofer De La Rosa M.D. [id number]
[2024-01-31 01:07] LABS: Troponin(5th) Baseline < 6 ng/L (0-10)
[2024-01-31 01:14] LABS: Thyroid Stimulating Hormone 0.82 uIU/mL (0.27-4.20)
--- NOTE | 2024-01-31 01:19 | PC.NURSE ---
0113- 96 Hour Involuntary Hold Patient Rights have been read to the patient and a copy of the same has been given to her. Commercial Baking Teacher Caridad Martínez was present at bedside during presentation of Rights.
[2024-01-31 01:22] LABS: Troponin 5 2HR Delta 0.00001 ABS# (0-10)
[2024-01-31 01:23] LABS: Ammonia 26 umol/L (11-51)
[2024-01-31 01:24] LABS: Creatine Phosphokinase 104 U/L (26-192); Magnesium 1.8 mg/dL (1.7-2.3)
[2024-01-31 01:31] LABS: Procalcitonin 0.04 ng/mL (0-0.5)
--- NOTE | 2024-01-31 01:32 | CTR_ITS ---
PROCEDURE INFORMATION: Exam: CT Head Without Contrast Exam date and time: 01/31/2024 3:14 AM Age: 28 years old Clinical indication: Injury or trauma; Additional info: Fell off bed hit left head, seizure, vomiting TECHNIQUE: Imaging protocol: Computed tomography of the head without contrast. Radiation optimization: All CT scans at this facility use at least one of these dose optimization techniques: automated exposure control; mA and/or kV adjustment per patient size (includes targeted exams where dose is matched to clinical indication); or iterative reconstruction. COMPARISON: CT head wo con* [id number] 01/30/2024 11:51 PM RADIATION DOSE METRICS: Total DLP (mGy-cm): 980.4 FINDINGS: Brain: No acute intracranial hemorrhage or mass effect. No definite acute infarct by CT. MRI would be more sensitive/specific for detection, as clinically directed. Suspect slightly low position of the cerebellar tonsils bilaterally, possibly representing mild Chiari 1 malformation. MRI could further evaluate, as clinically directed. Cerebral ventricles: Ventricle size is normal for age. Paranasal sinuses: Included paranasal sinuses are essentially clear. Mastoid air cells: No significant acute finding. Bones: No definite acute skull fracture. Soft tissues: No significant acute finding. CT/CT head wo con* [id number] IMPRESSION: 1. No acute intracranial hemorrhage or mass effect. 2. No definite acute infarct by CT, see above. 3. Possible mild Chiari 1 malformation, see above. 4. Other findings discussed above. 5. Some limitations due to artifact from patient motion.
--- NOTE | 2024-01-31 01:32 | PC.NURSE ---
SITTER ALERTED STAFF TO PT HAVING SEIZURE AND FALLING ON THE FLOOR. STAFF TO ROOM, PT WAS RETURNED TO BED. SEIZURE WAS OVER BY THE TIME STAFF ARRIVED. ICU MADE AWARE THAT PT WOULD BE GOING TO CT PRIOR TO TRANSFER.
--- NOTE | 2024-01-31 01:37 | PC.NURSE ---
Spoke with [employer] @ poison control. Given medications that she may have ingested. Monitor for serotonin synd. EKG changes. Tremors/ n/v/hypotension. 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 anion gap open. Peak for all listed meds max at 4 hrs.
--- NOTE | 2024-01-31 02:38 | ECG_ITS ---
[facility] Test Date: 2024-01-31 Pat Name: Sarina Portillo Department: Room: ICU08 Gender: Female Schedule Planning Manager: : 1995 Requested By: Ephraim Jarvis Order Number: [id number] Eliel MD: Cristofer De La Rosa M.D. Measurements Intervals [place] Rate: 79 P: 52 [place]: 146 QRS: 69 QRSD: 86 T: 34 QT: 410 QTc: 471 Interpretive Statements SINUS RHYTHM NONSPECIFIC ST ELEVATION [0.05+ mV ST ELEVATION] Compared to ECG 01/31/2024 01:04:41 ST (T wave) deviation now present T-wave abnormality no longer present Electronically Signed On 01-31-2024 9:24:03 CDT by Cristofer De La Rosa M.D. [id number]
[2024-01-31 04:49] LABS: Chol HDL Ratio 2.87 mg/dL (0.0-4.40); Cholesterol 198 mg/dL (0-200); HDL Cholesterol 69 mg/dL (60-100); LDL Cholesterol Calculated 94 mg/dL (50-129); LDL HDL Ratio 1.36 RATIO (0.00-3.22); Triglycerides 176 mg/dL (0-150)
[2024-01-31 05:32] LABS: Estmated Average Glucose 91; Hemoglobin A1C 4.8 % (4.0-6.0)
[2024-01-31] MEDS: pantoprazole 40 mg SDV IVP (06:23)
[2024-01-31] MEDS: folic acid 1 MG, multivitamin inj 10 ML, thiamine 100 MG in sodium chloride 0.9% 1,000 ML 252.800000000000011 MG IV (06:24)
[2024-01-31] MEDS: enoxaparin 40 mg/0.4 mL Syringe SUBCUT (06:25)
[2024-01-31] MEDS: sodium chloride 0.9% 1,000 ML 100 ML IV ×2 (06:26→17:02)
--- NOTE | 2024-01-31 06:38 | ECG_ITS ---
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 Measurements Intervals [place] Rate: 81 P: 62 [place]: 152 QRS: 62 QRSD: 88 T: 23 QT: 303 QTc: 353 Interpretive Statements SINUS RHYTHM NONSPECIFIC T-WAVE ABNORMALITY Compared to ECG 01/31/2024 02:33:00 T-wave abnormality now present ST (T wave) deviation no longer present Electronically Signed On 01-31-2024 9:22:47 CDT by Cristofer De La Rosa M.D. [email or web address] [email or web address].[employer]/store/[id number]
[2024-01-31] MEDS: folic acid 1 mg Tablet PO (08:09)
[2024-01-31] MEDS: multivitamin therapeutic Tablet 1 TAB PO (08:09)
[2024-01-31] MEDS: thiamine 100 mg Tablet PO (08:09)
[2024-01-31] MEDS: LORazepam 2 mg Tablet PO (08:22)
[2024-01-31] MEDS: acetaminophen 325 mg Tablet 650 MG PO (08:22)
--- NOTE | 2024-01-31 08:38 | PC.NURSE ---
tremors Patients hand visibly shaking during assessment, reports having very vivid dreams. 1:1 sitter state patient has been hallucinating and talking to things in the room. No hallucinating observed by nurse. Patient is AAOx3, date off by 2 days. Patient given 2 mg PO Ativan for CIWA score.
--- NOTE | 2024-01-31 09:00 | PC.PHAR ---
PT UNABLE TO VERIFY MEDICATIONS. MED REC DONE VIA 2 PHARMACIES.
--- NOTE | 2024-01-31 10:26 | PM.MISC ---
Miscellaneous Note Note: Patient is stating that she had an argument with her boyfriend when kids were getting out of control yesterday, when she went to the her medicine cabinet she took all of them along alcohol She is stating that she has gone through withdrawal in the past Currently she is not experiencing anything She was worried about losing her job if she stays here on 96-hour hold Currently not endorsing any suicidal ideation Continue [place] protocol Monitor with one-to-one supervision Will talk to neuropsych
--- NOTE | 2024-01-31 10:29 | PC.NURSE ---
Poison control called for update, update given. Continue to monitor patient.
[2024-01-31] MEDS: LORazepam 2 mg/mL INJ 10 mL MDV IVP ×4 (12:20→20:01)
--- NOTE | 2024-01-31 15:07 | PC.NURSE ---
Father at bedside for visiting hours. Update given.
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
[2024-01-31] MEDS: PHENobarbital 130 mg/mL SDV 1 mL 60 MG IVP (19:29)
[2024-02-01] VITALS (37 sets, daily range): BP systolic 114–153; BP diastolic 86–110; PULSE 75–101; RESP 13–35; TEMP 37–38.2; O2SAT 90–97
[2024-02-01] MEDS: sodium chloride 0.9% 1,000 ML 100 ML IV ×3 (00:44→19:56)
[2024-02-01] MEDS: LORazepam 2 mg/mL INJ 10 mL MDV IVP ×2 (01:16→07:24)
[2024-02-01] MEDS: PHENobarbital 130 mg/mL SDV 1 mL 60 MG IVP ×2 (03:11→19:14)
[2024-02-01] MEDS: enoxaparin 40 mg/0.4 mL Syringe SUBCUT (03:26)
[2024-02-01] MEDS: pantoprazole 40 mg SDV IVP (03:26)
[2024-02-01 05:39] LABS: Basophils % 0.5 %; Eosinophils # 0.1 10^3/uL (0.0-0.8); Eosinophils % 1.2 %; Hematocrit 32.7 % (36-47); Lymphocytes # 1.2 10^3/uL (0.8-4.8); Lymphocytes % 19.9 %; Mean Corpuscular HGB Conc 31.8 g/dL (30-55); Mean Corpuscular Volume 97.6 fl (85-98); Mean Platelet Volume 10.3 fL (7.4-10.4); Monocytes # 0.5 10^3/uL (0.2-0.9); Monocytes % 7.9 %; Neutrophils # 4.09 10^3/uL (1.8-7.7); Neutrophils % 70.2 %; Nucleated Red Blood Cells % 0 %; Platelet Count 103 10^3/cmm (157-399); Red Blood Count 3.35 10^6/uL (3.85-5.65); Red Cell Distribution Width 13.9 % (12.1-15.1); White Blood Count 5.83 10^3/uL (3.29-11.43)
[2024-02-01 06:06] LABS: Anion Gap 13.6 (5-19); Blood Urea Nitrogen 16 mg/dL (6-20); Calcium 7.6 mg/dL (8.5-10.5); Carbon Dioxide 18 mmol/L (22-29); Chloride 109 mmol/L (98-107); Creatinine Clr Calc Pharmacy 111.2093; Glomerular Filtration Rate 98.3 mL/min (90-130); Glucose 70 mg/dL (65-115); Magnesium 1.5 mg/dL (1.7-2.3); Osmolality Calculated 284 mOsm/kg (285-295); Potassium 3.6 mmol/L (3.5-5.1); Sodium 137 mmol/L (136-145)
[2024-02-01] MEDS: magnesium sulfate premix 4 GM/100 ML PREMIX IV (09:53)
--- NOTE | 2024-02-01 11:09 | P.NPUPN_ITS ---
Subjective NPU 2 Subjective: 28-year-old female with PTSD, depression , and alcohol abuse currently in ICU after overdosing on multiple medications along with continued alcohol use prior to arrival in the emergency department. Patient continued to appear nearly unresponsive on interview. She is unable to provide with any clarity any information regarding how she came to be here and what medications she had taken an overdose. Mental Status Exam 2 MSE Comments: patient is a casually dressed white female with fair hygiene who appeared her older than her stated age in icu, poor hygiene, moderate to severe distress. She was disheveled and lying in ICU bed. Intermittently awake. Odd billateral hand movements were appreciated. Her speech was slurred, slow and diminished in volume and extremely difficult to understand. Her thought process was nonlinear. Her thought content showed no evidence of active homicidal or suicidal ideation. She did appear to be responding to internal stimuli. She minimized any auditory or visual hallucinations. There was no clear evidence of delusional thinking. Her mood was not endorsed Her affect was dysphoric. Her recent and remote memory were impaired. Her attention span appeared impaired. Her insight was limited. Her judgment was poor. Her impulse control appeared limited at this time. She denied homicidal or suicidal ideation. Vitals/I&O/Wt Last Vital Signs Temp 99.5 F 02/01/24 08:00 Pulse 93 02/01/24 08:00 Resp 19 H 02/01/24 08:00 BP 138/102 02/01/24 08:00 Pulse Ox 95 02/01/24 08:00 O2 Del Method Room Air 02/01/24 08:00 01/31/24 02/01/24 02/01/24 22:59 06:59 14:59 Intake Total 1000 / 2131.2 770 / 2901.2 915 / 915 Balance 1000 / 2131.2 770 / 2901.2 915 / 915 Weight last 48 hrs Weight 64.365 kg Weight 58.967 kg Weight 58.967 kg Weight 54.431 kg Data NPU 02/01/24 05:00 02/01/24 05:00 A&P Assessment and plan (1) Alcohol withdrawal delirium: (2) WESTON (generalized anxiety disorder): (3) Panic attacks: (4) Intentional drug overdose: (5) Alcohol use disorder: (6) Overdose: Qualifiers: Encounter type: initial encounter Injury intent: intentional self-harm Qualified Code(s): T50.902A - Poisoning by unspecified drugs, medicaments and biological substances, intentional self-harm, initial encounter Plan Patient remains in alcohol withdrawal with autonomic dysfunction present along with elevated temperature. Hold psychotropic medications previously prescribed. Continue CIWA plus phenobarb Awaiting transfer to psychiatric unit once medically stable. Involuntary Hold Information 2 96 Hour Hold: 96 Hour Involuntary Admission: Yes 96 Hour Hold Ending Date: 01/03/24 96 Hour Hold Ending Time: 21:15 Attestations NPU 2 Medical Necessity Statement*: Inpatient psychiatric hospitalization is medically necessary and deemed to ?be ?the clinically appropriate intervention ?at this time once stabilized on the medical floor or ICU.? We will monitor/initiate medications and make changes as indicated.? The patient will be in the hospital for over 2 midnights.? The patient?s likely length of stay 7-10 days. Coding Level of Care Code Acute Code for [facility] Fwd Diagnoses Alcohol withdrawal delirium F10.931 WESTON (generalized anxiety disorder) F41.1 Panic attacks F41.0 Intentional drug overdose T50.902A Alcohol use disorder F10.90 Overdose T50.902A Encounter type: initial encounter Injury intent: intentional self-harm
--- NOTE | 2024-02-01 12:18 | ECG_ITS ---
[facility] Test Date: 2024-02-01 Pat Name: Sarina Portillo Department: Room: 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 Measurements Intervals [place] Rate: 89 P: 54 AR: 176 QRS: 52 QRSD: 88 T: 32 QT: 407 QTc: 498 Interpretive Statements SINUS RHYTHM Compared to ECG 01/31/2024 06:02:53 T-wave abnormality no longer present Electronically Signed On 02-01-2024 19:55:03 CDT by Mohit Burrell M.D. [email or web address]
[2024-02-01 13:51] LABS: Glucose Point of Care 73 mg/dL (70-110)
[2024-02-01 14:36] LABS: Add Urine Microscopic? NO; Charge for UA Resulting for Rev
[2024-02-01 14:38] LABS: Bilirubin Urine Neg (Negative); Blood Urine Neg (Negative); Glucose Urine UA Norm (Normal); Ketones Urine 1+ (Negative); Leukocyte Esterase Urine Negative (Negative); Nitrate Urine Negative (Negative); Protein Urine Neg (Negative); Urine Appearance Clear (CLEAR); Urine Color Yellow (Yellow); Urobilinogen Urine Norm (Negative); pH Urine 7 (5-7)
[2024-02-01 14:47] LABS: Amphetamines Screen Urine Negative (Negative); Barbiturates Screen Urine Positive (Negative); Benzodiazepines Screen Urine Positive (Negative); Cocaine Screen Urine Negative (Negative); Opiate Screen Urine Negative (Negative); PCP Screen Urine Negative (Negative); THC Screen Urine Negative (Negative)
--- NOTE | 2024-02-01 18:19 | P.PN_ITS ---
Subjective 2 Subjective: Patient showing signs of withdrawal Added phenobarbital to Ativan Appreciate neuropsych recommendations Autonomic dysfunction secondary to alcohol withdrawal Low-grade fever, source unidentified Unknown if she had any history of IV drug abuse, will add vancomycin and Zosyn request blood cultures along echo Vitals/I&O/Wt Last Vital Signs Temp 97.6 F 01/31/24 17:34 Pulse 78 01/31/24 20:00 Resp 18 01/31/24 20:00 BP 153/101 01/31/24 20:00 Pulse Ox 92 01/31/24 20:00 O2 Del Method Room Air 01/31/24 16:00 01/31/24 01/31/24 01/31/24 06:59 14:59 22:59 Intake Total 1000 / 1000 1131.2 / 1131.2 1000 / 2131.2 Balance 1000 / 1000 1131.2 / 1131.2 1000 / 2131.2 Weight last 48 hrs Weight 58.967 kg Weight 58.967 kg Weight 54.431 kg Physical Exam 2 Narrative: Patient was seen Hypertensive Signs of dehydration present Abdomen soft, nonfocal neuroexam On room air Young female in ICU S1, S2 tachycardia Data 02/01/24 05:00 02/01/24 05:00 A&P Assessment and plan (1) WESTON (generalized anxiety disorder): (2) Panic attacks: (3) Intentional drug overdose: (4) Alcohol use disorder: (5) Overdose: Qualifiers: Encounter type: initial encounter Injury intent: intentional self-harm Qualified Code(s): T50.902A - Poisoning by unspecified drugs, medicaments and biological substances, intentional self-harm, initial encounter Plan Patient showing signs of withdrawal, appreciate neuropsych recommendations I have added phenobarbital to her [facility] protocol Continue folic acid thiamine Will add metoprolol for autonomic dysfunction She will need to stay 1 more day she carries history of alcohol withdrawal in the past as well I will allow her to eat DVT prophylaxis on board Low-grade fever no recurrence Low-grade fever source unknown start vancomycin Zosyn request blood cultures and echo Attestations 2 Medical Necessity Statement*: Continue ICU management Diagnoses WESTON (generalized anxiety disorder) F41.1 Panic attacks F41.0 Intentional drug overdose T50.902A Alcohol use disorder F10.90 Overdose T50.902A Encounter type: initial encounter Injury intent: intentional self-harm
--- NOTE | 2024-02-01 18:19 | XRR_ITS ---
PROCEDURE INFORMATION: Exam: XR Chest Exam date and time: 02/01/2024 6:27 PM Age: 28 years old Clinical indication: Patient HX: Onset of fever TECHNIQUE: Imaging protocol: Radiologic exam of the chest. Views: 1 view. COMPARISON: CR (CHEST, ) 01/31/2024 3:31 AM FINDINGS: Lungs: Unremarkable. No consolidation. Pleural spaces: Unremarkable. No pleural effusion. No pneumothorax. Heart/Mediastinum: Unremarkable. No cardiomegaly. Bones/joints: Unremarkable. XR/XR chest 1V portable [id number] IMPRESSION: No acute findings.
[2024-02-01] MEDS: vancomycin 1,000 MG in sodium chloride 0.9% 250 ML 250 MG IV (19:14)
[2024-02-01] MEDS: piperacillin-tazobactam 3.375 GM in sodium chloride 0.9% (plus) 50 ML IV (19:56)
[2024-02-01] MEDS: metoprolol tartrate 25 mg Tablet PO (20:08)
[2024-02-02] VITALS (25 sets, daily range): BP systolic 139–183; BP diastolic 88–128; PULSE 71–83; RESP 12–21; TEMP 36.9–37.1; O2SAT 90–98
[2024-02-02] MEDS: piperacillin-tazobactam 3.375 GM in sodium chloride 0.9% (plus) 50 ML IV ×3 (03:30→19:48)
[2024-02-02] MEDS: enoxaparin 40 mg/0.4 mL Syringe SUBCUT (04:31)
[2024-02-02] MEDS: pantoprazole 40 mg SDV IVP (04:31)
[2024-02-02 05:58] LABS: Basophils % 0.8 %; Eosinophils # 0.1 10^3/uL (0.0-0.8); Eosinophils % 2.4 %; Hematocrit 32.4 % (36-47); Lymphocytes % 27.2 %; Mean Corpuscular HGB Conc 33.6 g/dL (30-55); Mean Corpuscular Hemoglobin 31.3 pg (27-33); Mean Corpuscular Volume 93.1 fl (85-98); Mean Platelet Volume 11.1 fL (7.4-10.4); Monocytes # 0.4 10^3/uL (0.2-0.9); Monocytes % 9.5 %; Neutrophils # 2.25 10^3/uL (1.8-7.7); Neutrophils % 59.3 %; Nucleated Red Blood Cells % 0 %; Platelet Count 91 10^3/cmm (157-399); Red Blood Count 3.48 10^6/uL (3.85-5.65); Red Cell Distribution Width 13.4 % (12.1-15.1); White Blood Count 3.79 10^3/uL (3.29-11.43)
[2024-02-02] MEDS: sodium chloride 0.9% 1,000 ML 100 ML IV (05:58)
--- NOTE | 2024-02-02 06:00 | USCV_ITS ---
Sarina Portillo Age: 28 Gender: F : 1995 Exam Date: 02/02/2024 08:37 Ordering Phys: Kennedi Monroe MD Technologist: Fidencio Javier Exam Location: [facility] Indication: fever BP: 139 / 95 HR: 77 Rhythm: Sinus Technical Quality: Adequate MEASUREMENTS (Male / Female) Normal Values 2D ECHO LV Diastolic Diameter PLAX 3.5 cm 4.2 - 5.9 / 3.9 - 5.3 cm IVS Diastolic Thickness 0.9 cm 0.6 - 1.0 / 0.6 - 0.9 cm IVS Systolic Thickness 1.4 cm LVPW Diastolic Thickness 1.7 cm 0.6 - 1.0 / 0.6 - 0.9 cm LVPW Systolic Thickness 2.4 cm LVOT Diameter 2.0 cm LV Ejection Fraction 2D Teich 83.6 % LV Ejection Fraction MOD 2C 72.6 % LV Ejection Fraction 2C AL 72.6 % LA Diameter 3.0 cm RA Systolic Volume 4C AL 36.8 ml RA Systolic Volume 4C MOD 36.1 ml LA Sys Volume AL 46.3 cm cubed LA Sys Volume Index AL 26.9 cm cubed/m squared Aorta at Sinotubular Diameter 2.2 cm IVC Diameter 1.9 cm M-MODE LA Ao Ratio MM 1.3 AV Cusp Separation MM 1.8 cm DOPPLER AV Peak Velocity 101.7 cm/s LVOT Peak Velocity 101.0 cm/s AV Area Cont Eq vti 3.6 cm squared AV Area Cont Eq pk 3.2 cm squared MV Peak Velocity 114.0 cm/s MV Area PHT 4.9 cm squared Mitral E to A Ratio 1.5 TV Peak Velocity 228.0 cm/s TR Peak Velocity 271.0 cm/s TR Peak Gradient 29.4 mmHg TR Mean Velocity 225.0 cm/s TR Mean Gradient 20.8 mmHg TR Velocity Time Integral 73.4 cm PV Peak Velocity 94.0 cm/s RV Ejection Time 0.3 s FINDINGS Left Ventricle Normal left ventricular size and systolic function, EF 72%.mild left ventricular hypertrophy. No regional wall motion abnormalities. Right Ventricle The right ventricle is normal in size and function. Right Atrium The right atrium is normal in size. Left Atrium Left atrium is upper limits of normal size. Mitral Valve Trace mitral valve regurgitation. Aortic Valve No gross abnormalities noted Tricuspid Valve Trace tricuspid valve regurgitation. Pulmonic Valve Trace pulmonary valve regurgitation. Pericardium Normal pericardium without effusion. Aorta Normal aortic annulus size. IVC The inferior vena cava appears normal. CONCLUSIONS Normal left ventricular size and systolic function, EF 72%. mild left ventricular hypertrophy. No regional wall motion abnormalities. Left atrium is upper limits of normal size. Trace tricuspid valve regurgitation. Trace pulmonary valve regurgitation. Estimated pulmonary artery peak systolic pressure within normal limits No previous study is available for comparison. Dr Mohit Burrell MD FACC (Electronically Signed) Final Date: 02 Feb 2024 17:13 S
[2024-02-02] MEDS: PHENobarbital 130 mg/mL SDV 1 mL 60 MG IVP (06:06)
[2024-02-02 06:09] LABS: Magnesium 2.2 mg/dL (1.7-2.3)
[2024-02-02] MEDS: vancomycin 1,000 MG in sodium chloride 0.9% 250 ML 250 MG IV ×2 (06:14→18:09)
[2024-02-02 06:20] LABS: Alanine Aminotransferase 13 U/L (0-33); Albumin Level 3.6 g/dL (3.5-5.2); Alkaline Phosphatase 51 U/L (35-105); Anion Gap 16.5 (5-19); Aspartate Amino Transferase 20 U/L (0-32); Blood Urea Nitrogen 8 mg/dL (6-20); Calcium 7.1 mg/dL (8.5-10.5); Carbon Dioxide 16 mmol/L (22-29); Chloride 108 mmol/L (98-107); Creatinine Clr Calc Pharmacy 129.7442; Globulin 2.1 g/dL (1.3-4.6); Glomerular Filtration Rate 117.4 mL/min (90-130); Glucose 76 mg/dL (65-115); Osmolality Calculated 281 mOsm/kg (285-295); Potassium 3.5 mmol/L (3.5-5.1); Sodium 137 mmol/L (136-145); Total Bilirubin 0.6 mg/dL (0.15-1.2); Total Protein 5.7 g/dL (6.6-8.7)
[2024-02-02] MEDS: metoprolol tartrate 25 mg Tablet PO ×2 (09:12→20:06)
[2024-02-02] MEDS: folic acid 1 mg Tablet PO (09:12)
[2024-02-02] MEDS: multivitamin therapeutic Tablet 1 TAB PO (09:13)
[2024-02-02] MEDS: thiamine 100 mg Tablet PO (09:13)
--- NOTE | 2024-02-02 11:57 | P.PN_ITS ---
Subjective 2 Subjective: Low-grade fever Creatinine antibiotics Discontinue phenobarbital Continue only Ativan for CIWA protocol No leukocytosis, UA unremarkable chest x-ray unremarkable Blood cultures taken Echo is pending Vitals/I&O/Wt Last Vital Signs Temp 98.5 F 02/02/24 08:00 Pulse 76 02/02/24 08:00 Resp 15 02/02/24 08:00 BP 152/110 02/02/24 08:00 Pulse Ox 94 02/02/24 08:00 O2 Del Method Room Air 02/02/24 08:00 02/01/24 02/02/24 02/02/24 22:59 06:59 14:59 Intake Total 1350 / 2405 1050 / 3455 420 / 420 Output Total 1700 / 2300 550 / 2850 550 / 550 Balance -350 / 105 500 / 605 -130 / -130 Weight last 48 hrs Weight 64.002 kg Weight 64.365 kg Physical Exam 2 Narrative: Dehydration signs present One-to-one supervision Resting comfortably Hypertensive No tachycardia Currently on room air Data 02/02/24 05:01 02/02/24 05:01 Micro: Microbiology 02/01/24 19:51 Blood Culture - Preliminary Blood SPECIMEN COLLECTED 02/01/24 19:20 Blood Culture - Preliminary Blood SPECIMEN COLLECTED A&P Assessment and plan (1) WESTON (generalized anxiety disorder): (2) Panic attacks: (3) PTSD (post-traumatic stress disorder): (4) Intentional drug overdose: (5) Alcohol use disorder: (6) Alcohol withdrawal delirium: (7) Overdose: Qualifiers: Encounter type: initial encounter Injury intent: intentional self-harm Qualified Code(s): T50.902A - Poisoning by unspecified drugs, medicaments and biological substances, intentional self-harm, initial encounter Plan Continue 96-hour hold One-to-one supervision is being continued I have added vancomycin and Zosyn on 01/31 Low-grade fever Chest x-ray unremarkable, UA unremarkable, no active nausea vomiting, hemodynamically stable without hypotension She has autonomic dysfunction which can contribute to high blood pressure She is doing well on room air I will change her diet to clear liquids because of her drowsiness Discontinue phenobarbital I would only keep her on Ativan for CIWA protocol She will go to NPU likely on Saturday if remains stable DVT prophylaxis on board Repeat labs tomorrow Attestations 2 Medical Necessity Statement*: Continue ICU management Diagnoses WESTON (generalized anxiety disorder) F41.1 Panic attacks F41.0 PTSD (post-traumatic stress disorder) F43.10 Intentional drug overdose T50.902A Alcohol use disorder F10.90 Alcohol withdrawal delirium F10.931 Overdose T50.902A Encounter type: initial encounter Injury intent: intentional self-harm
[2024-02-02] MEDS: labetalol 5 mg/mL SDV 20mL IVP (16:29)
[2024-02-02] MEDS: nicotine 14 mg Patch 1 PATCH TRANSDERMA (16:31)
--- NOTE | 2024-02-02 18:02 | W.PM.NPUPNS ---
Subjective NPU Subjective: 28-year-old female admitted to ICU with significant mental status changes in the context of alcohol withdrawal and possible medication overdose. Patient was compliant but remains in the ICU with some autonomic instability while receiving phenobarbital and benzodiazepine treatment. She had continued to appear in and out of consciousness and was minimally engaged in discussing what had brought her here into the hospital. She had repeatedly stated that she needed to go home to work. Mental Status Exam MSE Comments: patient is a casually dressed white female with poor hygiene who appeared her older than her stated age in icu, poor hygiene, moderate distress. She was easily awakened but appeared disinterested in discussing her situation No clear abnormal involuntary motor movements were appreciated. Her speech remained slurred and difficult to understand, with diminished volume. Her thought process was nonlinear. Her thought content showed no evidence of active homicidal or suicidal ideation. She did appear to be responding to internal stimuli. She minimized any auditory or visual hallucinations. There was no clear evidence of delusional thinking. Her mood was described as okay. Her affect was dysphoric and mood incongruent. Her recent and remote memory were impaired. Her attention span appeared impaired. Her insight is impaired. Her judgment was poor. Her impulse control appeared limited at this time. She denied homicidal or suicidal ideation. Vitals/I&O/Wt Last Vital Signs Temp 98.6 F 02/02/24 12:00 Pulse 79 02/02/24 16:00 Resp 16 02/02/24 16:00 BP 180/121 02/02/24 16:00 Pulse Ox 96 02/02/24 15:00 O2 Del Method Room Air 02/02/24 15:00 02/02/24 02/02/24 02/02/24 06:59 14:59 22:59 Intake Total 1050 / 3455 873.333 / 873.333 50 / 923.333 Output Total 550 / 2850 1150 / 1150 500 / 1650 Balance 500 / 605 -276.667 / -276.667 -450 / -726.667 Weight last 48 hrs Weight 64.002 kg Weight 64.365 kg Data NPU 02/02/24 05:01 02/02/24 05:01 Micro: Microbiology 02/01/24 19:51 Blood Culture - Preliminary Blood SPECIMEN COLLECTED 02/01/24 19:20 Blood Culture - Preliminary Blood SPECIMEN COLLECTED Microbiology 02/01/24 19:51 Blood Blood Culture - Preliminary SPECIMEN COLLECTED 02/01/24 19:20 Blood Blood Culture - Preliminary SPECIMEN COLLECTED A&P Assessment and plan (1) Major depressive disorder, recurrent: (2) PTSD (post-traumatic stress disorder): (3) WESTON (generalized anxiety disorder): (4) Panic attacks: (5) Intentional drug overdose: (6) Alcohol use disorder: (7) Alcohol withdrawal delirium: (8) Overdose: Qualifiers: Encounter type: initial encounter Injury intent: intentional self-harm Qualified Code(s): T50.902A - Poisoning by unspecified drugs, medicaments and biological substances, intentional self-harm, initial encounter Plan 1. Will admit directly to NPU when stabilized. Patient has minimal insight. Involuntary Hold Information 96 Hour Hold: 96 Hour Involuntary Admission: Yes 96 Hour Hold Ending Date: 01/03/24 96 Hour Hold Ending Time: 21:15 Attestations NPU Medical Necessity Statement*: Inpatient psychiatric hospitalization is medically necessary and deemed to ?be ?the clinically appropriate intervention ?at this time once stabilized on the medical floor or ICU.? We will monitor/initiate medications and make changes as indicated.? The patient will be in the hospital for over 2 midnights.? The patient?s likely length of stay 5-7 days. Coding Level of Care Code Acute Code for [facility] Fwd Diagnoses Major depressive disorder, recurrent F33.9 PTSD (post-traumatic stress disorder) F43.10 [place]STON (generalized anxiety disorder) F41.1 Panic attacks F41.0 Intentional drug overdose T50.902A Alcohol use disorder F10.90 Alcohol withdrawal delirium F10.931 Overdose T50.902A Encounter type: initial encounter Injury intent: intentional self-harm
--- NOTE | 2024-02-02 20:53 | PC.NURSE ---
Pt has been hypertensive consistently, little improvement following IV labetalol earlier in the day, no improvment following 25 mg metoprolol given at 1999. Contacted Dr. Jarvis, made aware of high blood pressures, new order received for Norvasc 10 mg PO q 24 hours.
[2024-02-02] MEDS: amlodipine 10 mg Tablet PO (21:08)
[2024-02-02] MEDS: cloNIDine 0.1 mg Tablet 0.100000000000000006 MG PO (23:20)
--- NOTE | 2024-02-02 23:40 | PC.NURSE ---
Contacted Dr. Jarvis regarding ongoing hypertension following Norvasc. New order received for Clonidine 0.1 mg PO q 12 hours.
[2024-02-03] VITALS (27 sets, daily range): BP systolic 112–171; BP diastolic 80–115; PULSE 65–93; RESP 11–36; TEMP 36.7–36.9; O2SAT 96–100
[2024-02-03] MEDS: pantoprazole 40 mg SDV IVP (03:34)
[2024-02-03] MEDS: piperacillin-tazobactam 3.375 GM in sodium chloride 0.9% (plus) 50 ML IV (03:34)
[2024-02-03] MEDS: enoxaparin 40 mg/0.4 mL Syringe SUBCUT (03:34)
[2024-02-03 05:55] LABS: Basophils # 0.1 10^3/uL (0.0-0.1); Basophils % 1.1 %; Eosinophils # 0.2 10^3/uL (0.0-0.8); Eosinophils % 3.9 %; Hematocrit 35.2 % (36-47); Lymphocytes # 1.2 10^3/uL (0.8-4.8); Lymphocytes % 26.5 %; Mean Corpuscular HGB Conc 34.9 g/dL (30-55); Mean Corpuscular Hemoglobin 31.5 pg (27-33); Mean Corpuscular Volume 90.3 fl (85-98); Mean Platelet Volume 9.9 fL (7.4-10.4); Monocytes # 0.5 10^3/uL (0.2-0.9); Monocytes % 10.7 %; Neutrophils % 57.1 %; Nucleated Red Blood Cells % 0 %; Platelet Count 148 10^3/cmm (157-399); Red Cell Distribution Width 13.2 % (12.1-15.1); White Blood Count 4.56 10^3/uL (3.29-11.43)
[2024-02-03 06:11] LABS: Vancomycin Trough 6.6 ug/mL (10-15)
[2024-02-03] MEDS: vancomycin 1,000 MG in sodium chloride 0.9% 250 ML 250 MG IV (06:14)
[2024-02-03 06:18] LABS: Anion Gap 13.4 (5-19); Blood Urea Nitrogen 5 mg/dL (6-20); Calcium 8.3 mg/dL (8.5-10.5); Carbon Dioxide 20 mmol/L (22-29); Chloride 105 mmol/L (98-107); Creatinine Clr Calc Pharmacy 152.5359; Glomerular Filtration Rate 144.9 mL/min (90-130); Glucose 92 mg/dL (65-115); Osmolality Calculated 277 mOsm/kg (285-295); Potassium 3.4 mmol/L (3.5-5.1); Sodium 135 mmol/L (136-145)
[2024-02-03] MEDS: cloNIDine 0.1 mg Tablet 0.100000000000000006 MG PO ×2 (07:46→18:28)
[2024-02-03] MEDS: folic acid 1 mg Tablet PO (07:46)
[2024-02-03] MEDS: multivitamin therapeutic Tablet 1 TAB PO (07:46)
[2024-02-03] MEDS: thiamine 100 mg Tablet PO (07:46)
[2024-02-03] MEDS: nicotine 14 mg Patch 1 PATCH TRANSDERMA (07:46)
[2024-02-03] MEDS: metoprolol tartrate 25 mg Tablet PO (07:47)
--- NOTE | 2024-02-03 09:52 | P.PN_ITS ---
Subjective 2 Subjective: Patient remains hypertensive Otherwise no overnight significance If her blood pressure improved by end of the day we may be able to transfer her to neuropsychiatric unit Vitals/I&O/Wt Last Vital Signs Temp 98.5 F 02/03/24 04:00 Pulse 67 02/03/24 08:00 Resp 11 L 02/03/24 08:00 BP 130/102 02/03/24 08:00 Pulse Ox 96 02/03/24 08:00 O2 Del Method Room Air 02/02/24 15:00 02/02/24 02/03/24 02/03/24 22:59 06:59 14:59 Intake Total 660 / 1533.333 290 / 1823.333 Output Total 1600 / 2750 1000 / 3750 Balance -940 / -1216.667 -710 / -1926.667 Weight last 48 hrs Weight 61.326 kg Weight 64.002 kg Physical Exam 2 Narrative: Euvolemic S1, S2 No active anesthesia Hemodynamic stable Hypertension Room air Tolerating diet no Active vomiting Data 02/03/24 05:47 02/03/24 05:47 Micro: Microbiology 02/01/24 19:51 Blood Culture - Preliminary Blood NEGATIVE TO DATE 02/01/24 19:20 Blood Culture - Preliminary Blood NEGATIVE TO DATE A&P Assessment and plan (1) Major depressive disorder, recurrent: (2) WESTON (generalized anxiety disorder): (3) Panic attacks: (4) Alcohol withdrawal delirium: (5) Alcohol use disorder: (6) Intentional drug overdose: (7) Overdose: Qualifiers: Encounter type: initial encounter Injury intent: intentional self-harm Qualified Code(s): T50.902A - Poisoning by unspecified drugs, medicaments and biological substances, intentional self-harm, initial encounter Plan Advance her diet Increase the dose of metoprolol Continue CIWA protocol Discontinue phenobarbital Afebrile Discontinue antibiotics Cultures are negative Autonomic dysfunction related to polysubstance abuse If remains hemodynamically stable by end of the day can go to neuropsychiatric unit Attestations 2 Medical Necessity Statement*: Possible transfer today Diagnoses Major depressive disorder, recurrent F33.9 WESTON (generalized anxiety disorder) F41.1 Panic attacks F41.0 Alcohol withdrawal delirium F10.931 Alcohol use disorder F10.90 Intentional drug overdose T50.902A Overdose T50.902A Encounter type: initial encounter Injury intent: intentional self-harm
[2024-02-03] MEDS: acetaminophen 325 mg Tablet 650 MG PO ×2 (11:42→19:32)
[2024-02-03] MEDS: lisinopril 10 mg Tablet PO (11:42)
--- NOTE | 2024-02-03 14:00 | P.NPUPN_ITS ---
Subjective NPU 2 Subjective: 28-year-old female with alcohol dependen ce and major depressive disorder admitted with an overdose on medications along with significant alcohol withdrawal symptoms. The patient remains in the intensive care unit. She had been more awake and alert and reiterated her desire to return to her home in an attempt to procure her dream job. Patient had admitted to having overdosed with suicidal intent as she reported that it was a mistake and that she would never do it again. Patient reported having depression but continued to persist with her desire to want to leave here despite there being no substantiative changes in her situation at home that had led to her overdose. Mental Status Exam 2 MSE Comments: patient is a casually dressed white female with poor hygiene who appeared her older than her stated age in icu in moderate distress. She was awake and alert and remained in moderate distress. No clear abnormal involuntary motor movements were appreciated. Her speech was normal in rate, rhythm and prosody. Her thought process was linear, logical and goal directed. She minimized suicidal ideation despite stating that she had intentionally overdosed on medication. No evidence of homicidal ideation. She did not appear to be responding to internal stimuli. She minimized any auditory or visual hallucinations. There was no clear evidence of delusional thinking. Her mood was described as fine. Her affect was restricted in range. Her recent and remote memory were not tested. Her attention span appeared improved. Her insight is impaired. Her judgment was poor. Her impulse control appeared limited at this time. She denied homicidal or suicidal ideation. Vitals/I&O/Wt Last Vital Signs Temp 98.5 F 02/03/24 04:00 Pulse 67 02/03/24 08:00 Resp 11 L 02/03/24 08:00 BP 130/102 02/03/24 08:00 Pulse Ox 96 02/03/24 08:00 O2 Del Method Room Air 02/02/24 15:00 02/02/24 02/03/24 02/03/24 22:59 06:59 14:59 Intake Total 660 / 1533.333 290 / 1823.333 Output Total 1600 / 2750 1000 / 3750 Balance -940 / -1216.667 -710 / -1926.667 Weight last 48 hrs Weight 61.326 kg Weight 64.002 kg Data NPU 02/03/24 05:47 02/03/24 05:47 Micro: Microbiology 02/01/24 14:26 Urine Culture - Preliminary Urine,Voided 02/01/24 19:51 Blood Culture - Preliminary Blood NEGATIVE TO DATE 02/01/24 19:20 Blood Culture - Preliminary Blood NEGATIVE TO DATE Microbiology 02/01/24 14:26 Urine,Voided Urine Culture - Preliminary 02/01/24 19:51 Blood Blood Culture - Preliminary NEGATIVE TO DATE 02/01/24 19:20 Blood Blood Culture - Preliminary NEGATIVE TO DATE Involuntary Hold Information 2 96 Hour Hold: 96 Hour Involuntary Admission: Yes 96 Hour Hold Ending Date: 01/03/24 96 Hour Hold Ending Time: 21:15 Attestations NPU 2 Medical Necessity Statement*: Inpatient psychiatric hospitalization is medically necessary and deemed to ?be ?the clinically appropriate intervention ?at this time once stabilized on the medical floor or ICU.? She is unable to return home at this time until psychiatric stabilization occurs. Coding Level of Care Code Acute Code for [facility]
[2024-02-03] MEDS: amlodipine 10 mg Tablet PO (20:08)
[2024-02-03] MEDS: LORazepam 2 mg/mL INJ 10 mL MDV IVP (20:21)
--- NOTE | 2024-02-03 22:27 | PC.NURSE ---
Patient taken to NPU for shower. Upon return patient was inquiring about telemetry and what it did. Was very pleasant and talkative, thankful for shower, stated she felt much better. Patient then became tearful and asked how close was I to being successful? . Patient gave further clarification that she was referring to suicide attempt. This nurse asked if she was glad she was unsuccessful with attempt, patient replied I don't know . Asked if she would try again and patient stated I don't want to, but I don't want to live like this. I hope I can feel better before I go home. Discussed her children and her family, stated she loves them and does not want to leave them. Currently resting, denies any discomfort, stated she felt human following her shower. Sitter present.
[2024-02-04] VITALS (14 sets, daily range): BP systolic 93–136; BP diastolic 66–92; PULSE 61–110; RESP 10–20; TEMP 36.2–36.9; O2SAT 96–100
[2024-02-04] MEDS: pantoprazole 40 mg SDV IVP (05:06)
[2024-02-04] MEDS: enoxaparin 40 mg/0.4 mL Syringe SUBCUT (05:09)
[2024-02-04 05:32] LABS: Basophils # 0.1 10^3/uL (0.0-0.1); Basophils % 1.1 %; Eosinophils # 0.1 10^3/uL (0.0-0.8); Eosinophils % 3.1 %; Hematocrit 37.5 % (36-47); Lymphocytes # 1.5 10^3/uL (0.8-4.8); Lymphocytes % 33.7 %; Mean Corpuscular HGB Conc 34.9 g/dL (30-55); Mean Corpuscular Volume 88.7 fl (85-98); Mean Platelet Volume 9.4 fL (7.4-10.4); Monocytes # 0.5 10^3/uL (0.2-0.9); Monocytes % 10.8 %; Neutrophils # 2.31 10^3/uL (1.8-7.7); Neutrophils % 50.9 %; Nucleated Red Blood Cells % 0 %; Platelet Count 181 10^3/cmm (157-399); Red Blood Count 4.23 10^6/uL (3.85-5.65); Red Cell Distribution Width 13.3 % (12.1-15.1); White Blood Count 4.54 10^3/uL (3.29-11.43)
[2024-02-04 06:00] LABS: Anion Gap 16.2 (5-19); Blood Urea Nitrogen 9 mg/dL (6-20); Calcium 8.8 mg/dL (8.5-10.5); Carbon Dioxide 20 mmol/L (22-29); Chloride 100 mmol/L (98-107); Creatinine Clr Calc Pharmacy 127.1133; Glomerular Filtration Rate 117.4 mL/min (90-130); Glucose 76 mg/dL (65-115); Osmolality Calculated 273 mOsm/kg (285-295); Potassium 3.2 mmol/L (3.5-5.1); Sodium 133 mmol/L (136-145)
[2024-02-04] MEDS: thiamine 100 mg Tablet PO (08:07)
[2024-02-04] MEDS: folic acid 1 mg Tablet PO (08:07)
[2024-02-04] MEDS: multivitamin therapeutic Tablet 1 TAB PO (08:07)
[2024-02-04] MEDS: cloNIDine 0.1 mg Tablet 0.100000000000000006 MG PO (08:07)
[2024-02-04] MEDS: nicotine 14 mg Patch 1 PATCH TRANSDERMA (08:08)
[2024-02-04] MEDS: lisinopril 10 mg Tablet PO (08:08)
[2024-02-04] MEDS: LORazepam 2 mg Tablet PO (09:26)
--- NOTE | 2024-02-04 09:50 | PC.NURSE ---
Transfer Note Patient transferred to NPU from ICU via wheelchair. Handoff report given to GARIMA Goldsmith. Patient oriented to environment and equipment. Covering service notified. Orders reviewed and will continue to monitor. Family notified of patient transfer.
--- NOTE | 2024-02-04 10:36 | PC.NURSE ---
Patient transferred from ICU to NPU via wheelchair. and GARIMA Kapoor present Patient calm and cooperative during nursing shift assessment. Patient denies SI, HI, AVH, and depression. Patient reports anxiety d/t life stressors.
--- NOTE | 2024-02-04 10:56 | W.PM.NPUPNS ---
Subjective NPU Subjective: 28-year-old white female with a depressive disorder, PTSD, and alcohol dependence admitted after an overdose with suicidal ideation along with recent alcohol withdrawal and required placement in the ICU. Patient was transferred to the neuropsychiatric unit today for further treatment. She had reported having an extended history of depression that is never achieved remission since her adolescence. She had reported worsening depression over the past 6 years. She had reported that she had become overwhelmed and reported having stopped all of her psychiatric medications because she had tested positive for marijuana and felt that the medications had made her have a false positive test. Patient had reported motivation to work again. She had reported considerable financial stressors. She had reported low energy and frequent bouts of anger and frustration. She had reported having nightmares that related to her past childhood trauma. She had reported no significant treatment regarding psychotherapy for managing PTSD or depression. She had acknowledged having problems with her alcohol use but continued to report not needing inpatient substance abuse treatment. She had reported previous trial of Prozac had been helpful for her depression more than 8 years ago. Mental Status Exam MSE Comments: patient is a casually dressed white female with poor hygiene who appeared her older than her stated age in moderate distress. No clear abnormal involuntary motor movements were appreciated. Her speech was normal in rate, rhythm and prosody. Her thought process was linear, logical and goal directed. She showed no evidence of homicidal ideation. She denied suicidal ideation but acknowledged intent of overdose leading to her hospitalization. She denied any plan at this time. She did not appear to be responding to internal stimuli. She minimized any auditory or visual hallucinations. There was no clear evidence of delusional thinking. Her mood was described as depressed. Her affect was restricted in range and mood congruent. Her recent and remote memory were not tested. Her attention span appeared fair. Her insight is impaired. Her judgment was poor. Her impulse control appeared limited at this time. Vitals/I&O/Wt Last Vital Signs Temp 98.2 F 02/04/24 10:05 Pulse 110 H 02/04/24 10:05 Resp 16 02/04/24 10:05 BP 111/81 02/04/24 10:05 Pulse Ox 99 02/04/24 10:05 O2 Del Method Room Air 02/04/24 10:05 02/03/24 02/04/24 02/04/24 22:59 06:59 14:59 Intake Total 600 / 600 600 / 1200 540 / 540 Output Total 600 / 600 1200 / 1800 Balance 0 / 0 -600 / -600 540 / 540 Weight last 48 hrs Weight 58.649 kg Weight 61.326 kg Data NPU 02/04/24 04:47 02/04/24 04:47 Micro: Microbiology 02/01/24 14:26 Urine Culture - Final Urine,Voided Microbiology 02/01/24 14:26 Urine,Voided Urine Culture - Final A&P Assessment and plan (1) Major depressive disorder, recurrent: (2) PTSD (post-traumatic stress disorder): (3) WESTON (generalized anxiety disorder): (4) Panic attacks: (5) Intentional drug overdose: (6) Alcohol use disorder: (7) Alcohol withdrawal delirium: (8) Overdose: Qualifiers: Encounter type: initial encounter Injury intent: intentional self-harm Qualified Code(s): T50.902A - Poisoning by unspecified drugs, medicaments and biological substances, intentional self-harm, initial encounter Plan 1. Start Prozac 20mg daily to target depression. 2. To-15 minute checks 3. Recommend sober living treatment at the highest level of care to which the patient is willing to commit. 4. Engage patient in individual, milieu and group therapy Involuntary Hold Information 96 Hour Hold: 96 Hour Involuntary Admission: Yes 96 Hour Hold Ending Date: 01/03/24 96 Hour Hold Ending Time: 21:15 Attestations NPU Medical Necessity Statement*: Inpatient psychiatric hospitalization is medically necessary and deemed to ?be ?the clinically appropriate intervention ?at this time. The patient will be hospitalized psychiatrically for at least 2 midnights. Her likely length of stay is 3-5 days. Coding Level of Care Code Acute Code for [facility] Fwd Diagnoses Major depressive disorder, recurrent F33.9 PTSD (post-traumatic stress disorder) F43.10 [place]ST[place] (generalized anxiety disorder) F41.1 Panic attacks F41.0 Intentional drug overdose T50.902A Alcohol use disorder F10.90 Alcohol withdrawal delirium F10.931 Overdose T50.902A Encounter type: initial encounter Injury intent: intentional self-harm
[2024-02-04] MEDS: potassium chloride ER 20 mEq Tablet 40 MEQ PO (11:06)
[2024-02-04] MEDS: hydroCHLOROthiazide 25 mg Tablet PO (11:06)
[2024-02-04] MEDS: metoprolol tartrate 25 mg Tablet PO ×2 (11:06→20:13)
--- NOTE | 2024-02-04 11:57 | PC.NURSE ---
Pt transferred from the ICU with 12 empty prescription bottles. Hydroxyz HCL, Promethazine, Vitamin B-1, Trazodone, Metoprolol Succ ER 2 bottles, Folic acid 2 bottles, Citalopram 2 bottles, topiramate 2 bottles. All bottles were empty upon arrival to unit. Reina Higgins RN
[2024-02-04] MEDS: fluoxetine 20 mg Capsule PO (13:54)
[2024-02-04] MEDS: trazodone 50 mg Tablet PO (20:13)
[2024-02-05] VITALS: BP 101/68; PULSE 69; RESP 16; TEMP 36.7; O2SAT 96
[2024-02-05 04:00] VITALS: BP 100/67; PULSE 68; RESP 14; O2SAT 99
[2024-02-05 08:00] VITALS: BP 112/76; PULSE 82; RESP 17; TEMP 36.6; O2SAT 99
[2024-02-05] MEDS: thiamine 100 mg Tablet PO (08:39)
[2024-02-05] MEDS: pantoprazole DR 40 mg Tablet PO (08:39)
[2024-02-05] MEDS: folic acid 1 mg Tablet PO (08:39)
[2024-02-05] MEDS: fluoxetine 20 mg Capsule PO (08:39)
[2024-02-05] MEDS: hyDROXYzine 25 mg Capsule 50 MG PO ×2 (08:39→20:48)
[2024-02-05] MEDS: hydroCHLOROthiazide 25 mg Tablet PO (08:39)
[2024-02-05] MEDS: multivitamin therapeutic Tablet 1 TAB PO (08:39)
[2024-02-05] MEDS: lisinopril 10 mg Tablet PO (08:40)
[2024-02-05] MEDS: ondansetron 4 MG Tablet PO (08:46)
[2024-02-05] MEDS: nicotine 14 mg Patch 1 PATCH TRANSDERMA (08:46)
[2024-02-05] MEDS: metoprolol tartrate 25 mg Tablet PO (08:46)
[2024-02-05] MEDS: acetaminophen 325 mg Tablet 650 MG PO (11:18)
[2024-02-05 12:00] VITALS: BP 115/78; PULSE 68; RESP 16; O2SAT 100
[2024-02-05 16:00] VITALS: BP 105/70; PULSE 82; RESP 16; TEMP 36.7; O2SAT 100
[2024-02-05] MEDS: LORazepam 2 mg Tablet PO (16:04)
--- NOTE | 2024-02-05 16:42 | W.PM.NPUPNS ---
Subjective NPU Subjective: 28-year-old white female with a depressive disorder, PTSD, and alcohol dependence admitted after an overdose with suicidal ideation along with recent alcohol withdrawal and required placement in the ICU. The patient had reported feeling better today. No side effects from her Prozac. She stated that she would be returning to her father's home upon discharge here. She had remained more hopeful . She had minimized having thoughts of hurting herself currently. She had continued to express concerns about her lack of medical insurance and stated that she would be willing to attend any counseling necessary to help her with her problem with alcohol. She had also stated that she would continue her naltrexone IM if necessary. Patient was able to attend groups. She had continued to report having struggles with anxiety. She had reported some PTSD related symptoms. Mental Status Exam MSE Comments: patient is a casually dressed white female with improved hygiene who appeared her older than her stated age in mild distress. No abnormal involuntary motor movements were appreciated. Her speech was normal in rate, rhythm and prosody. Her thought process was linear, logical and goal directed. She showed no evidence of homicidal ideation. She denied suicidal ideation but acknowledged intent of overdose leading to her hospitalization. She denied any plan at this time. She did not appear to be responding to internal stimuli. She minimized any auditory or visual hallucinations. There was no clear evidence of delusional thinking. Her mood was reported as better. Her affect was restricted in range and mood incongruent. Her recent and remote memory were not tested. Her attention span appeared fair. Her insight is impaired. Her judgment was poor. Her impulse control appeared limited at this time. Vitals/I&O/Wt Last Vital Signs Temp 97.8 F 02/05/24 08:00 Pulse 68 02/05/24 12:00 Resp 16 02/05/24 12:00 BP 115/78 02/05/24 12:00 Pulse Ox 100 02/05/24 12:00 O2 Del Method Room Air 02/05/24 12:00 Weight last 48 hrs Weight 58.649 kg Data NPU 02/04/24 04:47 02/04/24 04:47 A&P Assessment and plan (1) Major depressive disorder, recurrent: (2) PTSD (post-traumatic stress disorder): (3) WESTON (generalized anxiety disorder): (4) Panic attacks: (5) Intentional drug overdose: (6) Alcohol use disorder: (7) Alcohol withdrawal delirium: (8) Overdose: Qualifiers: Encounter type: initial encounter Injury intent: intentional self-harm Qualified Code(s): T50.902A - Poisoning by unspecified drugs, medicaments and biological substances, intentional self-harm, initial encounter Plan 28wf admitted to NPU after OD requiring ICU hospitalization with alcohol withdrawal symptoms and autonomic instability likely from OD on multiple medications. 1. Increase Prozac 30mg daily to target depression. 2. To-15 minute checks 3. Recommend sober living treatment at the highest level of care to which the patient is willing to commit. 4. Engage patient in individual, milieu and group therapy. 5. Consider Vivitrol IM to continue monthly. 6. 21 day hold filed today. Involuntary Hold Information 96 Hour Hold: 96 Hour Involuntary Admission: Yes 96 Hour Hold Ending Date: 01/03/24 96 Hour Hold Ending Time: 21:15 Attestations NPU Medical Necessity Statement*: Inpatient psychiatric hospitalization is medically necessary and deemed to ?be ?the clinically appropriate intervention ?at this time. Her likely length of stay is 2-4 days. Coding Level of Care Code Acute Code for [facility] Fwd Diagnoses Major depressive disorder, recurrent F33.9 PTSD (post-traumatic stress disorder) F43.10 [place]ST[place] (generalized anxiety disorder) F41.1 Panic attacks F41.0 Intentional drug overdose T50.902A Alcohol use disorder F10.90 Alcohol withdrawal delirium F10.931 Overdose T50.902A Encounter type: initial encounter Injury intent: intentional self-harm
--- NOTE | 2024-02-05 17:55 | PC.NURSE ---
Preformed a room check, no contraband recovered.
[2024-02-05 19:19] VITALS: BP 100/65; PULSE 77; RESP 14; TEMP 36.6; O2SAT 100
[2024-02-05] MEDS: trazodone 50 mg Tablet PO (20:48)
[2024-02-06] VITALS: BP 96/62; PULSE 79; RESP 16; TEMP 36.7; O2SAT 96
[2024-02-06 04:00] VITALS: BP 88/57; PULSE 74; RESP 16; TEMP 36.7; O2SAT 99
[2024-02-06 08:00] VITALS: BP 109/79; PULSE 115; RESP 20; TEMP 36.6; O2SAT 100
[2024-02-06] MEDS: thiamine 100 mg Tablet PO (08:11)
[2024-02-06] MEDS: nicotine 14 mg Patch 1 PATCH TRANSDERMA (08:11)
[2024-02-06] MEDS: hydroCHLOROthiazide 25 mg Tablet PO (08:11)
[2024-02-06] MEDS: fluoxetine 10 mg Capsule 30 MG PO (08:11)
[2024-02-06] MEDS: pantoprazole DR 40 mg Tablet PO (08:11)
[2024-02-06] MEDS: multivitamin therapeutic Tablet 1 TAB PO (08:11)
[2024-02-06] MEDS: folic acid 1 mg Tablet PO (08:11)
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
[2024-02-06 13:34] VITALS: BP 109/79; PULSE 115; RESP 20; TEMP 36.6; O2SAT 100
== END 2024-02-06 14:58 | disposition home or self-care (01) | DRG 918 ==
LOC: ER 01-31 00:53 → ICU 01-31 00:53 → NP 02-04 09:55
PROVIDERS: Internal Medicine; Admitting Provider Family Medicine; Emergency Provider Nurse Practitioner Family; PCP Family Medicine; Visit Provider Psychiatry & Neurology Psychiatry
DX: T50.912A Poisoning by multiple unspecified drugs, medicaments and biological substances, intentional self-harm, initial encounter (principal); F33.9 Major depressive disorder, recurrent, unspecified; F10.239 Alcohol dependence with withdrawal, unspecified; R45.851 Suicidal ideations; Y99.9 Unspecified external cause status; F43.10 Post-traumatic stress disorder, unspecified; F41.1 Generalized anxiety disorder; Y90.6 Blood alcohol level of 120-199 mg/100 ml; R03.0 Elevated blood-pressure reading, without diagnosis of hypertension
CPT/HCPCS: 36415; 36416; 70450; 71045; 80048; 80053; 80061; 80202; 80306; 80307; 81003; 82140; 82550; 82962; 83036; 83605; 83735; 84145; 84443; 84484; 84702; 85025; 87040; 87086; 93005; 93306; 96372; 96374; 96376; 97116; 97150; 97161; 97165; 99285; C9113; J1650; J2060; J2543; J2560; J3370; J3411; J3475; J3490; J7030; J7050; J7120; Q0162

== ENCOUNTER 2024-02-20 15:28 | Inpatient (IN) | payer SELFPAY ==
[2024-02-20 15:36] VITALS: BP 151/100; PULSE 133; RESP 18; TEMP 36.9; O2SAT 98; BMI 26.6
--- NOTE | 2024-02-20 15:53 | ED.C_ITS ---
HPI - Psych 2 General: Chief Complaint: Psychiatric Symptoms Stated Complaint: 96 Time Seen by Provider: 02/20/24 15:31 Source: patient and EMS Mode of arrival: EMS Limitations: no limitations History of Present Illness: 28-year-old female who states that she h as been having suicidal thoughts per EMS patient has been placed under 96-hour hold she had made statements last night that she wanted to overdose on pills to kill herself. Patient here is not being very cooperative with her history and not wanting to tell me much at this time and a 6-hour paper has been brought to us as well. Associated symptoms: Reports depression and suicidal ideation Review of Systems 2 Const: Denies: fever(s), chills, body aches or change in appetite ENMT: Denies: throat pain or dental pain Card: Denies: chest pain Resp: Denies: dyspnea GI: Denies: abdominal pain, nausea, vomiting or diarrhea Musc: Denies: neck pain or back pain Skin/Breast: Denies: rash Neuro: Denies: headache(s) Psych: Reports: depression and suicidal ideation [facility] ED 2 PFSH: Medical History Major depressive disorder, recurrent, moderate Nicotine use disorder Intentional drug overdose Overdose Psychiatric care Physical Exam 2 Const: COMMON NORMALS: no acute distress, patient oriented x3 and healthy appearing HENMT: COMMON NORMALS: normocephalic and atraumatic HEAD & SCALP: n ormocephalic and atraumatic Neck/C-Spine: COMMON NORMALS: full ROM and supple Chest: COMMONS NORMALS: normal inspection of the chest Resp: COMMON NORMALS: normal respiratory effort Cardio: COMMON NORMALS: regular rate, regular rhythm and No murmurs present (Cardio) RATE: regular rate RHYTHM: regular rhythm Extremity: COMMON NORMALS: normal to inspection Neuro: COMMON NORMALS: patient oriented x3, moves all extremities and no focal motor deficits Psych: COMMON NORMALS: mental status grossly normal, Normal thought process present and cooperative THOUGHT PROCESS: Normal thought process present T HOUGHT CONTENT: Yes Suicidality present Skin: COMMON NORMALS: no rashes or lesions noted and no wounds GENERAL SKIN EXAM: no rashes or lesions noted Course 2 Vital Signs: Vital signs: Vital Signs Temperature 98.4 F 02/20/24 15:36 Pulse Rate 127 H 02/20/24 16:27 Respiratory Rate 16 02/20/24 16:27 Blood Pressure 132/97 02/20/24 16:27 Pulse Oximetry 96 02/20/24 16:27 Oxygen Delivery Me thod Room Air 02/20/24 16:27 MDM - Psych Medical Decision Making Patient presents here with suicidal ideation she was placed on a 96-hour hold she is medically cleared I spoke to Dr. Heard psychiatry and will admit at this time. Medical Records I reviewed the patient's medical records. Lab Data I reviewed the patient's lab results. 02/20/24 16:14 02/20/24 16:14 Laboratory Results WBC 11.88 10^3/uL (3.29-11.43) H 02/20/24 16:14 RBC 4.81 10^6/uL (3.85-5.65) 02/20/24 16:14 Hgb 14.90 g/dL (11.27-16.99) 02/20/24 16:14 Hct 43.8 % (36-47) 02/20/24 16:14 MCV 91.1 fl (85-98) 02/20/24 16:14 MCH 31.0 pg (27-33) 02/20/24 16:14 MCHC 34.0 g/dL (30-55) 02/20/24 16:14 RDW 14.3 % (12.1-15.1) 02/20/24 16:14 Plt Count 213 10^3/cmm (157-399) 02/20/24 16:14 MPV 9.7 fL (7.4-10.4) 02/20/24 16:14 Neut % (Auto) 70.6 % 02/20/24 16:14 Lymph % (Auto) 24.2 % 02/20/24 16:14 [place] % (Auto) 3.8 % 02/20/24 16:14 Eos % (Auto) 0.4 % 02/20/24 16:14 Baso % (Auto) 0.7 % 02/20/24 16:14 Neut # (Auto) 8.40 10^3/uL (1.8-7.7) H 02/20/24 16:14 Lymph # (Auto) 2.9 10^3/uL (0.8-4.8) 02/20/24 16:14 [place] # (Auto) 0.5 10^3/uL (0.2-0.9) 02/20/24 16:14 Eos # (Auto) 0.1 10^3/uL (0.0-0.8) 02/20/24 16:14 Baso # (Auto) 0.1 10^3/uL (0.0-0.1) 02/20/24 16:14 Nucleated RBC % (auto) 0 % 02/20/24 16:14 Nucleated RBCs # 0.0 /100WBC 02/20/24 16:14 Sodium 143 mmol/L (136-145) 02/20/24 16:14 Potassium 4.1 mmol/L (3.5-5.1) 02/20/24 16:14 Chloride 105 mmol/L (98-107) 02/20/24 16:14 Carbon Dioxide 21 mmol/L (22-29) L 02/20/24 16:14 Anion Gap 21.1 (5-19) H 02/20/24 16:14 BUN 8 mg/dL (6-20) 02/20/24 16:14 Creatinine 0.5 mg/dL (0.5-0.9) 02/20/24 16:14 GFR Calculation 144.9 mL/min (90-130) H 02/20/24 16:14 Glucose 97 mg/dL (65-115) 02/20/24 16:14 Calculated Osmolality 294 mOsm/kg (285-295) 02/20/24 16:14 Calcium 8.4 mg/dL (8.5-10.5) L 02/20/24 16:14 Total Bilirubin 0.2 mg/dL (0.15-1.2) 02/20/24 16:14 AST 36 U/L (0-32) H 02/20/24 16:14 ALT 18 U/L (0-33) 02/20/24 16:14 Alkaline Phosphatase 54 U/L (35-105) 02/20/24 16:14 Total Protein 7.9 g/dL (6.6-8.7) 02/20/24 16:14 Albumin 4.5 g/dL (3.5-5.2) 02/20/24 16:14 Globulin 3.4 g/dL (1.3-4.6) 02/20/24 16:14 Salicylates < 0.3 mg/dL (3-10) L 02/20/24 16:14 Acetaminophen < 5.0 ug/mL (10-30) L 02/20/24 16:14 No radiology studies performed this visit Discharge Plan Discharge Patient Disposition: Admitted As Inpatient Admit Provider: Randall Heard Clinical Impression: Suicidal ideation Condition: Stable Coding Level of Care Code ED [employer] for [employer] Esquivel
[2024-02-20 16:07] VITALS: BP 151/100; PULSE 133; RESP 18; O2SAT 98
[2024-02-20 16:23] LABS: Basophils # 0.1 10^3/uL (0.0-0.1); Basophils % 0.7 %; Eosinophils # 0.1 10^3/uL (0.0-0.8); Eosinophils % 0.4 %; Hematocrit 43.8 % (36-47); Lymphocytes # 2.9 10^3/uL (0.8-4.8); Lymphocytes % 24.2 %; Mean Corpuscular Volume 91.1 fl (85-98); Mean Platelet Volume 9.7 fL (7.4-10.4); Monocytes # 0.5 10^3/uL (0.2-0.9); Monocytes % 3.8 %; Neutrophils % 70.6 %; Nucleated Red Blood Cells % 0 %; Platelet Count 213 10^3/cmm (157-399); Red Blood Count 4.81 10^6/uL (3.85-5.65); Red Cell Distribution Width 14.3 % (12.1-15.1); White Blood Count 11.88 10^3/uL (3.29-11.43)
[2024-02-20 16:27] VITALS: BP 132/97; PULSE 127; RESP 16; O2SAT 96
[2024-02-20 16:49] LABS: Alanine Aminotransferase 18 U/L (0-33); Albumin Level 4.5 g/dL (3.5-5.2); Alkaline Phosphatase 54 U/L (35-105); Anion Gap 21.1 (5-19); Aspartate Amino Transferase 36 U/L (0-32); Blood Urea Nitrogen 8 mg/dL (6-20); Calcium 8.4 mg/dL (8.5-10.5); Carbon Dioxide 21 mmol/L (22-29); Chloride 105 mmol/L (98-107); Creatinine Clr Calc Pharmacy 164.2224; Globulin 3.4 g/dL (1.3-4.6); Glomerular Filtration Rate 144.9 mL/min (90-130); Glucose 97 mg/dL (65-115); Osmolality Calculated 294 mOsm/kg (285-295); Potassium 4.1 mmol/L (3.5-5.1); Sodium 143 mmol/L (136-145); Total Bilirubin 0.2 mg/dL (0.15-1.2); Total Protein 7.9 g/dL (6.6-8.7)
[2024-02-20 16:56] LABS: Acetaminophen < 5.0 ug/mL (10-30); Salicylate < 0.3 mg/dL (3-10)
--- NOTE | 2024-02-20 17:11 | PC.NURSE ---
96 hr rights reviewed with patient with [facility] data security analyst Devin @[phone]. No verbalized questions or concerns at this time. Patient copy left @bedside with patient.
[2024-02-20 18:24] VITALS: BP 141/97; PULSE 116; RESP 20; TEMP 36.6; O2SAT 97
[2024-02-20 19:00] LABS: Alcohol Level 426 mg/dL (0-10)
--- NOTE | 2024-02-20 19:21 | PC.NURSE ---
LABORATORY CALLED WITH A CRITICAL LEVEL ON THIS PATIENT. PT BLOOD ALCOHOL LEVEL WAS [phone]. THIS NURSE CONTACTED PHYSICIAN. PHYSICIAN GOING TO SPEAK WITH OTHER PHYSICIANS. NO NEW ORDERS AT THIS TIME. PT CURRENTLY WALKING AROUND AND ALERT. PT CURRENT NEEDS ARE MET AT THIS TIME.
[2024-02-20 20:00] VITALS: BP 148/103; PULSE 116; RESP 17; TEMP 36.4; O2SAT 98
[2024-02-20] MEDS: ibuprofen 600 mg Tablet PO (20:36)
[2024-02-20] MEDS: trazodone 50 mg Tablet PO (20:36)
[2024-02-20] MEDS: hyDROXYzine 25 mg Capsule 50 MG PO (20:37)
--- NOTE | 2024-02-20 20:41 | XRR_ITS ---
PROCEDURE INFORMATION: Exam: XR Right Elbow Exam date and time: 02/20/2024 11:50 PM Age: 28 years old Clinical indication: Pain; Elbow; Right; Additional info: Pain R elbow and shoulder TECHNIQUE: Imaging protocol: Radiologic exam of the right elbow. Views: 3 or more views. COMPARISON: No relevant prior studies available. FINDINGS: Bones/joints: Bone island in the proximal radial metaphysis. No acute fracture or dislocation. No elbow joint effusion. Soft tissues: Normal. XR/XR elbow RT min 3V* [id number] IMPRESSION: No acute fracture or dislocation.
[2024-02-20 20:43] LABS: Alcohol Level 306 mg/dL (0-10)
[2024-02-21] VITALS: BP 109/73; PULSE 113; RESP 16; O2SAT 95
--- NOTE | 2024-02-21 02:31 | PC.NURSE ---
At 2035 patient requested medication for sleep and pain. See MAR. Physician notified of right elbow pain from a fall and ordered an xray.
[2024-02-21 04:00] VITALS: BP 138/106; PULSE 87; RESP 16; O2SAT 97
[2024-02-21 07:45] VITALS: BP 146/94; PULSE 126; RESP 18; TEMP 36.4; O2SAT 98
[2024-02-21] MEDS: metoprolol tartrate 25 mg Tablet PO ×2 (08:17→21:02)
[2024-02-21] MEDS: hyDROXYzine 25 mg Capsule 50 MG PO (08:17)
[2024-02-21] MEDS: folic acid 1 mg Tablet PO (08:17)
[2024-02-21] MEDS: multivitamin therapeutic Tablet 1 TAB PO (08:17)
[2024-02-21] MEDS: pantoprazole DR 40 mg Tablet PO (08:17)
[2024-02-21] MEDS: thiamine 100 mg Tablet PO (08:17)
[2024-02-21] MEDS: fluoxetine 20 mg Capsule 40 MG PO (08:17)
[2024-02-21] MEDS: OLANZapine 5 mg ODT PO (08:17)
--- NOTE | 2024-02-21 09:53 | PC.NURSE ---
PT IS OBSERVED TO BE ANXIOUS AND PACING HALLS THIS AM. PT RATES ANXIETY 8/10 AND WAS GIVEN VISTARIL 50 MG AND ZYDIS 5 MG ORDERED FOR INCREASED ANXIETY AND AGGITATION. PT STATES SHE IS CLAUSTROPHOBIC AND WANTS TO LEAVE HERE. PT EDUCATED THAT SHE IS ON A 96 HOUR HOLD AND IS UNABLE TO DISCHARGE AT THIS TIME. DENIES SI/HI AND AVH AT THIS TIME. DENIES PAIN. PT IS NOTED TO HAVE A FLAT AFFECT AND DEPRESSED MOOD. SCORED 3 ON CIWA. UNCERTAIN OF DATE, STATES ITS DECEMBER BUT KNOWS THE YEAR. ALL QUESTIONS ANSWERED AND SUPPORT.
[2024-02-21 11:34] VITALS: BP 140/101; PULSE 91; RESP 20; TEMP 36.6; O2SAT 98
[2024-02-21] MEDS: LORazepam 2 mg Tablet PO ×2 (12:05→17:32)
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
[2024-02-21 16:00] VITALS: BP 154/104; PULSE 94; RESP 20; TEMP 37.2; O2SAT 99
--- NOTE | 2024-02-21 17:13 | PC.NURSE ---
PT CIWA SCORE IS 16, ATIVAN 2 MG GIVEN PER PROTOCOL. THIS IS PTS SECOND DOSE OF ATIVAN 2 MG DUE TO ELEVATED CIWA SCORE. BP 154/104 WITH HR 94. PT CONTINUES TO REST INTERMITTENTLY. SUPPORT VOICED.
--- NOTE | 2024-02-21 19:03 | PC.NURSE ---
PT UP IN DAY ROOM AND IS CALM AND COOPERATIVE. CIWA RE-SCORED AT 3. PT HAS MINIMAL PERSPIRATION. SUPPORT VOICED.
[2024-02-21 20:00] VITALS: BP 134/90; PULSE 89; RESP 16; O2SAT 97
[2024-02-22] VITALS: BP 149/98; PULSE 79; RESP 16; O2SAT 97
[2024-02-22 04:00] VITALS: BP 134/89; PULSE 84; RESP 16; O2SAT 98
[2024-02-22 08:00] VITALS: BP 154/103; PULSE 72; RESP 20; TEMP 36.7; O2SAT 98
[2024-02-22] MEDS: pantoprazole DR 40 mg Tablet PO (08:45)
[2024-02-22] MEDS: folic acid 1 mg Tablet PO (08:45)
[2024-02-22] MEDS: metoprolol tartrate 25 mg Tablet PO ×2 (08:45→20:35)
[2024-02-22] MEDS: multivitamin therapeutic Tablet 1 TAB PO (08:45)
[2024-02-22] MEDS: fluoxetine 20 mg Capsule 40 MG PO (08:45)
[2024-02-22] MEDS: thiamine 100 mg Tablet PO (08:45)
[2024-02-22] MEDS: hyDROXYzine 25 mg Capsule 50 MG PO ×2 (09:33→20:35)
[2024-02-22] MEDS: LORazepam 2 mg Tablet PO ×2 (10:19→15:34)
[2024-02-22 11:35] VITALS: BP 119/80; PULSE 70; RESP 20; TEMP 36.6; O2SAT 97
--- NOTE | 2024-02-22 12:18 | PC.NURSE ---
Patient room checked for contraband. None found.
[2024-02-22] MEDS: acetaminophen 325 mg Tablet 650 MG PO (15:34)
[2024-02-22 16:00] VITALS: BP 138/108; PULSE 104; RESP 20; TEMP 36.8; O2SAT 98
--- NOTE | 2024-02-22 16:10 | PC.NURSE ---
Patient had a visitor during visiting hours and then began crying when he left. This RN asked her if she would like something from anxiety and she began sobbing and said yes. Patient given ativan 2mg po and then she went to her room and began praying. Support voiced and patients needs met at this time.
[2024-02-22 18:12] LABS: HCG Qualitative Urine. Negative (Negative)
[2024-02-22 18:28] LABS: Amphetamines Screen Urine Negative (Negative); Barbiturates Screen Urine Positive (Negative); Benzodiazepines Screen Urine Positive (Negative); Cocaine Screen Urine Negative (Negative); Opiate Screen Urine Negative (Negative); PCP Screen Urine Negative (Negative); THC Screen Urine Negative (Negative)
[2024-02-22 20:00] VITALS: BP 127/87; PULSE 89; RESP 16; TEMP 36.9; O2SAT 98
[2024-02-22] MEDS: trazodone 50 mg Tablet PO ×2 (20:35→22:13)
--- NOTE | 2024-02-22 21:28 | W.PM.NPUPNS ---
Subjective NPU Subjective: 28-year-old white female with a depressive disorder, PTSD, and alcohol dependence admitted with suicidal ideation and depression along with a blood alcohol level of well over 400. Patient continued to report alcohol use despite adverse consequences. 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 Patient had reported continued depression. She had reported that she was motivated to work and was hopeful that she could attend a [facility] hospital program to help with her substance use. Mental Status Exam MSE Comments: This is a well-nourished well-developed white female in hospital scrubs with limited grooming and eye contact. No abnormal movements except for psychomotor retardation. She was cooperative with exam in mild distress. Her speech was monotone in quality and decreased rate and volume. Mood described as depressed. Her affect was restricted and tearful at times. Her thought process was linear. Thought content: Patient denied suicidal or homicidal ideation, there were no delusions reported or noted, she denied any auditory or visual hallucinations. Attention and concentration were limited and memory appeared somewhat unreliable due to lethargy but none were formally tested. She was Alert andoriented to person and place. Her insight was limited. Her judgment was poor. Her impulse control appeared impaired. Vitals/I&O/Wt Last Vital Signs Temp 98.4 F 02/22/24 20:00 Pulse 89 02/22/24 20:00 Resp 16 02/22/24 20:00 BP 127/87 02/22/24 20:00 Pulse Ox 98 02/22/24 20:00 O2 Del Method Room Air 02/22/24 20:00 Data NPU 02/20/24 16:14 02/20/24 16:14 A&P Assessment and plan (1) Major depressive disorder, recurrent: (2) WESTON (generalized anxiety disorder): (3) Panic attacks: (4) PTSD (post-traumatic stress disorder): (5) Suicidal ideation: (6) Nicotine use disorder: (7) Alcohol use disorder, severe, dependence: (8) Alcohol intoxication: (9) Alcohol withdrawal: Plan A 37-year-old white female with a long history of mental health challenges and addiction as well with recent hospitalization with active alcohol addiction and returns after relapse and never receiving the Vivitrol injection as intended. 1. Will attempt to gather collateral information. 2. Continue every 15 minute checks for safety. 3. Encourage individual, group and milieu therapy. 4. Continue to monitor patient's feelings of safety and medication improvement for consideration of discharge. 5. Continue current medications. Vivitrol ordered to be given. Involuntary Hold Information 96 Hour Hold: 96 Hour Involuntary Admission: Yes 96 Hour Hold Ending Date: 01/03/24 96 Hour Hold Ending Time: 21:15 Attestations NPU Medical Necessity Statement*: npatient hospitalization is medically necessary and the clinically appropriate intervention at this time. We will monitor/initiate medications and make changes as indicated. Her likely length of stay 4-6 days. Coding Level of Care Code Acute Code for [facility] Fwd Diagnoses Major depressive disorder, recurrent F33.9 WESTON (generalized anxiety disorder) F41.1 Panic attacks F41.0 PTSD (post-traumatic stress disorder) F43.10 Suicidal ideation R45.851 Nicotine use disorder F17.200 Alcohol use disorder, severe, dependence F10.20 Alcohol intoxication F10.929 Alcohol withdrawal F10.939
[2024-02-23] VITALS: BP 136/93; PULSE 68; RESP 16; O2SAT 98
[2024-02-23] MEDS: OLANZapine 5 mg ODT PO (01:58)
[2024-02-23 04:00] VITALS: BP 133/93; PULSE 101; RESP 18; TEMP 36.7; O2SAT 98
[2024-02-23 07:50] VITALS: BP 137/96; PULSE 82; RESP 20; TEMP 36.7; O2SAT 98
[2024-02-23] MEDS: multivitamin therapeutic Tablet 1 TAB PO (08:58)
[2024-02-23] MEDS: thiamine 100 mg Tablet PO (08:58)
[2024-02-23] MEDS: fluoxetine 20 mg Capsule 40 MG PO (08:58)
[2024-02-23] MEDS: pantoprazole DR 40 mg Tablet PO (08:58)
[2024-02-23] MEDS: folic acid 1 mg Tablet PO (08:58)
--- NOTE | 2024-02-23 09:27 | PC.NURSE ---
Patient obsessive about utilizing her phone to look at her bank account this morning to make sure her checks had deposited because her account had been overdrafted when she was admitted. Staff told her that was against policy, but that we could contact the doctor to see if he could make an exception. Patient became agitated and tearful and stated being here was causing a lot of problems for her. Orders were obtained from the doctor to allow her to check her bank account on her phone this morning, with supervision, and the patient calmed. However, she forgot the password to open her phone and started to become acutely anxious. This RN provided her with the number to the [employer] desk. She called and they told her she would have to reset her whole phone. Patient began crying and continued to try multiple passwords. She eventually remembered the password and calmed again. Patient stated many times that she needed to be released by tomorrow so she could take care of several things before she had to go to work at [employer] for 6-12 hour shifts in a row.
[2024-02-23] MEDS: metoprolol tartrate 25 mg Tablet PO ×2 (10:42→20:57)
[2024-02-23 12:00] VITALS: BP 113/78; PULSE 76; RESP 20; TEMP 36.4; O2SAT 97
--- NOTE | 2024-02-23 12:25 | PC.NURSE ---
Room searched for contraband and patient pen confiscated.
[2024-02-23] MEDS: hyDROXYzine 25 mg Capsule 50 MG PO (12:42)
[2024-02-23] MEDS: LORazepam 2 mg Tablet PO (12:42)
[2024-02-23] MEDS: haloperidol 5 mg Tablet PO (12:42)
[2024-02-23 15:43] VITALS: BP 113/78; PULSE 76; RESP 20; TEMP 36.4; O2SAT 97
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
[2024-02-23 19:59] VITALS: BP 116/84; PULSE 90; RESP 16; TEMP 36.3; O2SAT 96
[2024-02-23] MEDS: trazodone 50 mg Tablet PO (20:57)
[2024-02-24] VITALS: BP 130/88; PULSE 81; RESP 18; O2SAT 98
[2024-02-24] MEDS: trazodone 50 mg Tablet PO (00:58)
[2024-02-24] MEDS: hyDROXYzine 25 mg Capsule 50 MG PO ×2 (03:48→08:17)
[2024-02-24 04:00] VITALS: BP 125/86; PULSE 75; RESP 17; O2SAT 98
[2024-02-24 08:00] VITALS: BP 120/84; PULSE 94; RESP 17; O2SAT 96
[2024-02-24] MEDS: pantoprazole DR 40 mg Tablet PO (08:16)
[2024-02-24] MEDS: fluoxetine 20 mg Capsule 40 MG PO (08:17)
[2024-02-24] MEDS: multivitamin therapeutic Tablet 1 TAB PO (08:17)
[2024-02-24] MEDS: folic acid 1 mg Tablet PO (08:17)
[2024-02-24] MEDS: thiamine 100 mg Tablet PO (08:17)
[2024-02-24] MEDS: metoprolol tartrate 25 mg Tablet PO (08:17)
--- NOTE | 2024-02-24 08:41 | PC.NURSE ---
UP IN DAY ROOM CONVERSING WITH PEERS. DENIES PAIN. DENIES SI/HI AND AVH AT THIS TIME. PT SCORED 0 ON CIWA PROTOCOL AND BP IS 120/84 AND HR 94. PT RATES ANXIETY 5/10 AND DEPRESSION 0/10. VISTARIL 50 MG WAS GIVEN FOR INCREASED REPORTS OF ANXIETY. PT IS MORE INTERACTIVE WITH STAFF AND PEERS THIS SHIFT. PT STATES GOAL IS TO GO HOME AND SEE MY CHILDREN. ALL QUESTIONS ANSWERED AND SUPPORT WAS VOICED. PT ANTICIPATES GETTING HER VIVITROL INJECTION TODAY IF AVAILABLE.
[2024-02-24 12:00] VITALS: BP 135/97; PULSE 85; RESP 18; TEMP 36.8; O2SAT 97
--- NOTE | 2024-02-24 13:35 | PC.NURSE ---
NEW ORDERS RECEIVED FROM DR. CHAN TO GIVE VIVITROL 380 MG IM NOW AND THEN PT TO TAKE EVERY MONTH FOR ALCOHOL ABUSE. [facility] CALLED AND ORDER FOR VIVITROL CALLED IN ABOVE. PHARMACY TO CALL NPU WHEN MEDICATIONS AVAILABLE. MIGUEL A FROM [facility] CONTACTED TO POSSIBLY PAY FOR PT MEDICATION DUE TO MEDICAID APPLICATION HAS NOT BEEN APPROVED. ERICH NOTIFIED NPU STAFF AND DR. CHAN THAT [facility] WILL POSSIBLY PAY FOR PTS MEDICATIONS UNTIL MEDICAID IS APPROVED. MIGUEL A WAS NOTIFIED THAT THE VIVITROL INJECTION WILL BE $176.77 ON 340B WITH COUPON. MIGUEL A TO LET THIS RN KNOW IF [facility] IS ABLE TO PAY. PT EDUCATED ON NEW ORDERS AND VERBALIZED UNDERSTANDING.
--- NOTE | 2024-02-24 13:52 | PC.NURSE ---
MIGUEL A FROM [facility] CONTACTED THIS RN AND STATED THAT [facility] IS UNABLE TO PAY FOR VIVITROL WHILE PT IS INPATIENT STATUS IN THE NPU. MIGUEL A FROM [facility] STATES ONCE SHE IS DISCHARGED FROM NPU THEN [facility] MAY BE ABLE TO PAY FOR PTS MEDICATIONS UNTIL MEDICAID IS APPROVED.
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
--- NOTE | 2024-02-24 15:05 | PC.NURSE ---
PT IS BEING DISCHARGED. THIS RN, DR. CHAN AND MIGUEL A FROM [facility] HAVE COLLABORATED FOR PT TO RECEIVE VIVITROL INJECTION OUTPATIENT WITH AMBER MCGEE. MEDICATION WAS PURCHASED BY [facility] AND PT BOYFRIEND AND PT ARE AGREEABLE TO GO TO [facility] SOON DISCHARGE FROM [facility] IS COMPLETED. PT VERBALIZES UNDERSTANDING.
[2024-02-24 15:09] VITALS: BP 135/97; PULSE 85; RESP 18; TEMP 36.8; O2SAT 97
[2024-02-24 15:13] VITALS: BP 135/97; PULSE 85; RESP 18; TEMP 36.8; O2SAT 97
--- NOTE | 2024-02-24 15:22 | PC.NURSE ---
PT INFORMED TO GO [facility] [place] TO SEE STEPHEN MCGEE TODAY ONCE SHE IS DISCHARGED. [facility] SET UP A TIME FOR PT TO [facility] TODAY. [facility] [place] DID PAY FOR VIVITROL INJECTION ONCE PT WAS DISCHARGED AND INJECTION WAS SENT TO [facility] [place] FOR PT TO RECEIVE FROM Caridad MCGEE NP. PT IS AGREEABLE WITH PLAN AND WAS DISCHARGED AT 1519. ALL QUESTIONS ANSWERED AND SUPPORT WAS VOICED. LEFT WITH ALL BELONGINGS. IN NO DISTRESS.
== END 2024-02-24 15:19 | disposition home or self-care (01) | DRG 885 ==
LOC: ER 15:55 → NP 16:28
PROVIDERS: Admitting Provider Psychiatry & Neurology Psychiatry; Emergency Provider Emergency Medicine; PCP Family Medicine; Visit Provider Psychiatry & Neurology Psychiatry
DX: F33.9 Major depressive disorder, recurrent, unspecified (principal); R45.851 Suicidal ideations; F10.239 Alcohol dependence with withdrawal, unspecified; F41.1 Generalized anxiety disorder; F41.0 Panic disorder [episodic paroxysmal anxiety]; F43.10 Post-traumatic stress disorder, unspecified; F10.229 Alcohol dependence with intoxication, unspecified; Y90.8 Blood alcohol level of 240 mg/100 ml or more
CPT/HCPCS: 36415; 73080; 80053; 80306; 80307; 81025; 85025; 97150; 97165; 99285

== ENCOUNTER → 2024-03-18 09:35 | Outpatient (BNVA) | payer OTHER, SELFPAY | PROVIDERS: PCP Family Medicine; Visit Provider Nurse Practitioner Psychiatric/Mental Health | DX: Z79.899 Other long term (current) drug therapy (principal) | CPT/HCPCS: 80053; 80061; 83036 ==

== ENCOUNTER → 2024-04-21 11:14 | Outpatient (BNVA) | payer BC, SELFPAY | PROVIDERS: PCP Family Medicine; Visit Provider Psychiatry & Neurology Neurology | DX: Z79.899 Other long term (current) drug therapy (principal) | CPT/HCPCS: 80053 ==

== ENCOUNTER → 2024-07-31 12:22 | Outpatient (BNVA) | payer OTHER, SELFPAY ==
[2024-07-01 15:32] VITALS: BP 123/86; BMI 25.8
== END ==
PROVIDERS: PCP Family Medicine; Visit Provider Nurse Practitioner Psychiatric/Mental Health
DX: Z79.899 Other long term (current) drug therapy (principal)
CPT/HCPCS: 80307

== ENCOUNTER → 2025-04-01 11:42 | Outpatient (BNVA) | payer OTHER, SELFPAY ==
[2025-02-09 07:44] VITALS: BP 123/86; BMI 25.8
== END ==
PROVIDERS: Visit Provider Psychiatry & Neurology Psychiatry
DX: F10.20 Alcohol dependence, uncomplicated (principal); F31.81 Bipolar II disorder; Z79.899 Other long term (current) drug therapy
CPT/HCPCS: 80061; 83036

== ENCOUNTER 2025-06-06 20:08 | Emergency (ER) | payer BC, MEDICAID, SELFPAY ==
[2025-04-02 15:56] VITALS: BMI 23.9
[2025-06-06 20:09] VITALS: BP 138/92; PULSE 123; RESP 17; TEMP 36.7; O2SAT 94; BMI 19.3
--- OUTSIDE RECORDS SUMMARY | 2025-06-06 20:28 | XMS_ITS | Clinical Summary ---
Author Organization [facility] Address [address] [place] [address] Care Team Providers Care Rotary Furnace Operator Name Role Phone Tyesha Quinteros DO Primary Care Provider [phone] Allergies No known active allergies Medications No known medications Active Problems Problem Noted Date Diagnosed Date Cigarette dependence 08/17/2015 Situational mixed anxiety and depressive disorde r 08/17/2015 Migraine 08/24/2008 Family History Medical History Relation Name Comments Diabetes Father High Cholesterol Father Hypertension Father Hypertension Mother Cancer Paternal Grandfather Colon C A Coronary Artery Disease Paternal Grandfather High Cholesterol Paternal Grandfather Hypertension Paternal Grandfather Diabetes Paternal Grandmother High Cholesterol Paternal Grandmother Hypertension Paternal Grandmother Relation Name Status Comments Brother Alive Father Alive Maternal Grandfather Alive Maternal Grandmother Alive Mother Alive Paternal Grandfather Alive Paternal Grandmother Alive Sister Alive Social History Tobacco Use Types Packs/Day Years Used Date Smoking Tobacco: Every Day Cigarettes Smokeless Tobacco: Never Tobacco Cessation:Ready to Q uit: No; Counseling Given: Yes Alcohol Use Standard Drinks/Week Comments No 0 (1 standard drink = 0.6 oz pur e alcohol) Comments No Sex and Gender Information Value Date Recorded Sex Assigned at Not on file Legal Sex Female 7:08 AM 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 MANAGER Gender Identity Not on file Sexual Orientation Not on file Occupation Industry Job Start Date Job End Date Student Not on file Not on file Not on file Not on file Not on file Not on file Not on file Not on file Not on file Not on file Not on file Last Filed Vital Signs Vital Sign Reading Time Taken Comments Blood Pressure 120/68 04/25/2020 2:44 PM CDT Pulse 82 04/25/2020 2:44 PM CDT Temperature 36.1 C (97 F) 04/25/2020 2:44 PM CDT Respiratory Rate 20 10/30/2012 10:43 AM DEMAND PLANNING MANAGER Oxygen Saturation 96% 04/25/2020 2:44 PM CDT Inhaled Oxygen Concentration - - Weight 79.8 kg (176 lb) 04/25/2020 2:44 PM CDT Height 165.1 cm (5' 5 ) 04/25/2020 2:44 PM CDT Body Mass Index 29.29 04/25/2020 2:44 PM CDT Plan of Treatment Health Maintenance Due Date Last Done Comments DTAP/TDAP/TD VACCINES (1 - Tdap) 2012 HEPATITIS B VACCINES (1 of 3 - 19+ 3-dose series) 2012 HPV VACCINES (1 - 3-dose SCDM series) 2020 HPV/Cotest (21-29) 01/10/2023 01/10/2018 CERVICAL CANCER SCREENING 12/10/2023 HPV/Cotest (30-65) 12/10/2023 01/10/2018 PAP SMEAR 12/10/2023 01/10/2018, 01/10/2018 INFLUENZA VACCINE (#1) 2025 Procedures Procedure Name Priority Date/Time Associated Diagnosis Comments CERV/VAG CYTOPATH, THIN PREP AND HPV Routine 01/10/2018 2:30 PM CDT Well woman exam with routine gynecological exam from Last 3 Months or Most Recently Relevant to Health Maintenance Results * CERV/VAG CYTOPATH, THIN PREP AND HPV (01/10/2018 2:30 PM CDT) PAP INTERP See Separate Results 01/16/2018 12:32 PM CDT [facility] Cat Amania [facility] Genital SWAB OF ENDOCERVIX / Unknown Collection / Unknown 01/10/2018 2:30 PM CDT 01/13/2018 8:39 AM CDT us Shameka Cleveland CHEMISTRY PHYSICS TEACHER PATHOLOGY/CYTOLOGY ORDERABLES Final Result [facility] CLIA# [id number] [address] [place] [id number] from Last 3 Months or Most Recently Relevant to Health Maintenance Care Teams Rotary Furnace Operator Relationship Specialty Start Date End Date Tyesha Quinteros DO [address] [place] [address] PCP - General Family Practice 11/16/10
--- OUTSIDE RECORDS SUMMARY | 2025-06-06 20:28 | XMS_ITS | Clinical Summary ---
Author Organization [facility] Address [address] V[address]quez: [place] [address] Care Team Providers Care Sales Administration Manager Name Role Phone Tyesha Quinteros DO Primary Care Provider [phone] Allergies Active Allergy Reactions Criticality Noted Date Comments Ciprofloxacin Rash Low 08/23/2022 Medications hydrOXYzine HCL (ATARAX) 25 mg tabletIndicatio ns:Situational mixed anxiety and depressive disorder Take 1 Tablet (25 mg) by mouth every 8 hours as needed for Anxiety. 90 Tablet 3 4 Active acamprosate (CAMPRAL) 333 mg Tablet, Delayed Release (E.C.) Take 333 mg by mouth 3 times daily. 4 Active ondansetron (ZOFRAN ODT) 4 mg Tablet, Rapid Dissolve Place 4 mg under tongue every 8 hours as needed for Nausea/Emesis. 5 Active topiramate (Topamax) 50 mg tabletIndicatio ns:Seizure (CMS/HCC) Take 1 Tablet (50 mg) by mouth 2 times daily. 60 Tablet 11 5 Active azelastine (ASTELIN) 137 mcg/actuation nasal spray Administer 2 Sprays in each nostril 2 times daily. 1 mL 11 5 Active fluticasone propionate (FLONASE) 50 mcg/spray [place], Suspension nasal inhaler Administer 2 Sprays in each nostril daily. 16 Gram 11 5 Active Active Problems Problem Noted Date Diagnosed Date Acute otitis media of left ear with perforation 02/24/2025 Mastoiditis of left side 02/20/2025 Unable to obtain health insu meir coverage due to limited financial resources 02/14/2025 Streptococcal pharyngitis 02/14/2025 Non-recurrent acute suppurat reshma otitis media of both ears with spontaneous rupture of tympanic membranes 02/14/2025 Bipolar 2 disorder 04/20/2024 Severe episode of recurrent major depressive disorder, without psychotic features 01/09/2024 Alcoholism 01/09/2024 HTN (hypertension), benign 01/09/2024 Seizure 03/20/2023 Situational mixed anxiety and depressive disorde r 08/17/2015 Cigarette dependence 08/17/2015 Migraine 08/24/2008 Encounters Date Type Department Care Team Description 05/12/2025 External Device Data [facility] ABSTRACTION Provider, Abstract 04/28/2025 External Device Data [facility] ABSTRACTION Provider, Abstract 04/20/2025 External Device Data [facility] ABSTRACTION Provider, Abstract 03/23/2025 External Device Data [facility] ABSTRACTION Provider, Abstract 03/23/2025 External Device Data [facility] ABSTRACTION Provider, Abstract 03/17/2025 Telephone [facility] [place] [address] [place] [address] Tyesha Quinteros, DO Question; Information; Letter for School/Work (Called pt to let her know I just sent her work note. ) 03/09/2025 11:00 AM CDT Procedure visit [facility] [address] [place] [id number] George Perez MD Dysfunction of both eustachian tubes (Primary Dx); Non-seasonal allergic rhinitis due to other allergic trigger; Arthralgia of left temporomandibular joint; Sternocleidomastoid muscle tenderness from Last 3 Months Family History Medical History Relation Name Comments [...] Used Date Smoking Tobacco: Every Day Cigarettes Passive Smoke Exposure: Current Smokeless Tobacco: Never Tobacco Cessation:Ready to Q uit: No; Counseling Given: Yes Alcohol Use Standard Drinks/Week Comments Not Currently 5 (1 standard drink = 0.6 oz pure alcohol) Patient states she drinks 1/2 of a 5th daily Feeling Safe Answer Date Recorded Are you in a relationship wi th someone who hurts you emotionally and/or physically? 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 OPERATOR Gender Identity Not on file Sexual Orientation Not on file Last Filed Vital Signs Vital Sign Reading Time Taken Comments Blood Pressure 160/100 03/09/2025 10:52 AM CDT Patient states she is on BP meds and with the pain she is in that this is right for her Pulse 99 03/01/2025 10:15 AM CDT Temperature 37.2 C (98.9 F) 03/01/2025 10:07 AM CDT Respiratory Rate 18 03/01/2025 10:0 7 AM CDT Oxygen Saturation 94% 03/01/2025 10: 07 AM CDT Inhaled Oxygen Concentration - - Weight 65 kg (143 lb 3.2 oz) 03/09/2025 10:52 AM CDT Height 165.1 cm (5' 5 ) 03/09/2025 10:5 2 AM CDT Body Mass Index 23.83 03/09/2025 10:52 AM CDT Plan of Treatment Health Maintenance Due Date Last Done Comments DTAP/TDAP/TD VACCINES (1 - Tdap) 2012 Preventative Visit-Managed Medicaid 01/11/201901/10 HPV VACCINES (1 - 3-dose SCDM series) 2020 HPV/Cotest (21-29) 01/10/2023 01/10/2018 CERVICAL CANCER SCREENING 12/10/2023 HPV/Cotest (30-65) 12/10/2023 01/10/2018 PAP SMEAR 12/10/2023 01/10/2018, 01/10/2018 INFLUENZA VACCINE (#1) 2025 COVID-19 Vaccine ( - season) 2025, 10/20/2020 HEPATITIS B VACCINES Completed 06/20/1994, 03/14/1994, 1993 Procedures Procedure Name Priority Date/Time Associated Diagnosis Comments CERV/VAG CYTOPATH, THIN PREP AND HPV Routine 01/10/2018 2:30 PM CDT CERV/VAG CYTOPATH, THIN PREP Routine 01/10/2018 2:30 PM CDT from Last 3 Months or Most Recently Relevant to Health Maintenance Results * CERV/VAG CYTOPATH, THIN PREP AND HPV (01/10/2018 2:30 PM CDT) Pathologist [facility] PAP INTERP See Separate Results 01/16/2018 12:32 PM CDT [facility] Genital SWAB OF ENDOCERVIX / Unknown Collection / Unknown 01/10/2018 2:30 PM CDT 01/13/2018 8:39 AM CDT Shameka Cleveland LOAN SERVICING SPECIALIST PATHOLOGY/CYTOLOGY ORDERABLES Final Result Performing Organization Address City/State/[facility] Co de Phone Number [facility] CLIA# [id number] [address] [place] [address] [facility] CLIA # [id number] [address] [address] * CERV/VAG CYTOPATH, THIN PREP (01/10/2018 2:30 PM CDT) Pathologist [facility] CLINICAL INFORMATION SCREENING 01/15/2018 1:56 PM CDT [facility] LAST MENSTRUAL PERIOD 2018010201/15/2018 1:56 PM CDT [facility] PREV PAP: SEE COMMENT 01/15/2018 1:56 PM CDT [facility] Comment:INFORMATION NOT PROV IDED PREV BX: SEE COMMENT 01/15/2018 1:56 PM CDT [facility] Comment:INFORMATION NOT PROV IDED SOURCE Endocervix 01/15/2018 1:56 PM CDT [facility] ADEQUACY: SEE COMMENT 01/15/2018 1:56 PM CDT [facility] Comment: Satisfactory for evaluation. Endocervical/transformation zone component present. PAP INTERP SEE COMMENT 01/15/2018 1:56 PM CDT [facility] Comment:Negative for intraep ithelial lesion or malignancy. ETL BI DEVELOPER: SEE COMMENT 2017 1:56 PM CDT [facility] Comment: MLK, CT(ASCP) CT screening location: [place] [address] [place] [address] EXPLANATORY NOTE SEE COMMENT 018 1:56 PM CDT [facility] Comment: EXPLANATORY NOTE: The Pap is a screening test for cervical cancer. It is not a diagnostic test and is subject to false negative and false positive results. It is most reliable when a satisfactory sample, regularly obtained, is submitted with relevant clinical findings and history, and when the Pap result is evaluated along with historic and current clinical information. Genital SWAB OF ENDOCERVIX / Unknown Collection / Unknown 01/10/2018 2:30 PM CDT 01/14/2018 8:49 AM CDT Narrative [facility] - 01/15/2018 1:56 PM CDT Performing Organization Information: Site ID: Name: [facility] Address: [facility] [place] [address] Director: Savanah Delaney Shameka Cleveland LOAN SERVICING SPECIALIST PATHOLOGY/CYTOLOGY ORDERABLES Final Result [facility]ENCE [facility] from Last 3 Months or Most Recently Relevant to Health Maintenance Insurance [facility] MEDICAID Care Teams Sales Administration Manager Relationship Specialty Start Date End Date Tyesha Quinteros DO [address] [place] [id number] PCP - General Family Practice 11/16/10
[2025-06-06 20:52] LABS: Hematocrit 33.9 % (36-47); Hemoglobin 11.80 g/dL (11.27-16.99); Mean Corpuscular HGB Conc 34.8 g/dL (30-55); Mean Corpuscular Hemoglobin 31.0 pg (27-33); Mean Corpuscular Volume 89.0 fl (85-98); Nucleated Red Blood Cells % 0 %; Platelet Count 162 10^3/cmm (157-399); Red Blood Count 3.81 10^6/uL (3.85-5.65); White Blood Count 2.98 10^3/uL (3.29-11.43)
[2025-06-06] MEDS: haloperidol inj 5 mg/mL INJ 1 mL 3 MG IVP (21:09)
[2025-06-06] MEDS: LORazepam 1 MG/0.5 ML injection 2 MG IVP (21:09)
[2025-06-06 21:15] LABS: Alanine Aminotransferase 32 U/L (0-33); Albumin Level 4.0 g/dL (3.5-5.2); Alkaline Phosphatase 63 U/L (35-105); Anion Gap 18.5 (5-19); Aspartate Amino Transferase 33 U/L (0-32); Blood Urea Nitrogen 10 mg/dL (6-20); Calcium 7.7 mg/dL (8.5-10.5); Carbon Dioxide 24 mmol/L (22-29); Chloride 107 mmol/L (98-107); Creatinine Clr Calc Pharmacy 123.0023; Globulin 2.4 g/dL (1.3-4.6); Glucose 88 mg/dL (65-115); Osmolality Calculated 300 mOsm/kg (285-295); Potassium 3.5 mmol/L (3.5-5.1); Sodium 146 mmol/L (136-145); Total Protein 6.4 g/dL (6.6-8.7)
[2025-06-06 21:37] LABS: Acetaminophen < 5.0 ug/mL (10-30); Alcohol Level 422 mg/dL (0-10); Salicylate < 0.3 mg/dL (3-10)
[2025-06-06 21:53] LABS: HCG, Serum Qual Negative (Negative)
[2025-06-06 21:54] VITALS: BP 130/88; PULSE 100; RESP 18; O2SAT 97
--- NOTE | 2025-06-06 22:08 | W.ED.SEIZURE ---
HPI - Seizure General: Chief Complaint: Seizure Stated Complaint: Seizure and etoh Time Seen by Provider: 06/06/25 20:10 History of Present Illness: HPI Narrative: 29-year-old female evidently with a history of seizure disorder. She also has a history of alcohol use. She presents after being intoxicated today. Evidently she had a seizure at home. On EMS arrival, she was mildly combative, did not want to come in for evaluation, but was unable to answer orientation questions appropriately. She presents confused. She is mildly combative here. She is not answering questions. She does not take antiepileptic medication. Related Data Previous Rx's ?Medication ?Instructions ?Recorded metoprolol tartrate 25 mg tablet 25 mg PO BID@0900,2100 30 days #60 02/06/24 tabs pantoprazole 40 mg tablet,delayed 40 mg PO DAILY 30 days #30 tabs 02/06/24 release acamprosate 333 mg tablet,delayed 666 mg (2 x 333 mg) PO TID #180 07/28/24 release tabs aripiprazole 10 mg tablet (Abilify) 10 mg PO .morning #30 tabs 07/28/24 folic acid 1 mg tablet 1 mg PO .morning 30 days #30 tabs 07/28/24 naltrexone 50 mg tablet 50 mg PO .morning #30 tabs 07/28/24 prazosin 2 mg capsule 6 mg (3 x 2 mg) PO BEDTIME #90 caps 07/28/24 thiamine mononitrate (vit B1) 100 100 mg PO .morning 30 days #30 tabs 07/28/24 mg tablet (Vitamin B-1 (mononitrate)) trazodone 50 mg tablet 50 mg PO BEDTIME PRN Sleep 30 days 07/28/24 #30 tabs Allergies Allergy/AdvReac Type Severity Reaction Status Date / Time ciprofloxacin (From Cipro) Allergy Unknown Verified 04/08/25 06:55 [facility] ED PFSH: Medical History Alcohol intoxication Generalized anxiety disorder with panic attacks Chronic post-traumatic stress disorder Mixed bipolar II disorder Nicotine use disorder Psychiatric care Family History Other Alzheimer's dementia CAD (coronary artery disease) Diabetes Hypertension Migraines Stroke Social History (Reviewed 06/06/25 @ 22:10 by GISSELL Worthington Smoking and tobacco/nicotine status: current every day tobacco/nicotine user cigarettes Packs smoked per day: 0.25 Years cigarettes smoked: 14 Quit status (tobacco/nicotine): not considering quitting Second hand smoke exposure: Yes Alcohol intake: former Year of sobriety/quit date alcohol: 2023 Former alcohol use details: March 30 Substance/Drug Use: current Other substance/drug use details: gummies to help her sleep Adopted: No Caregiver/support person: No Lives independently: Yes Household members: significant other and children Housing: House Marital status: Single Number of children: 2 Number of grandchildren: 0 Highest education level completed: High School Graduate Current occupational status: employed 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 Current occupational exposures/hazards: Yes Pets and animals: Yes Pets & animals: cat(s) Leisure activites: art, music, reading and other Leisure activities details: sleep, watch YV Sexually active: Yes Do you think of yourself as: Straight/Heterosexual Current gender identity: Female Stephanie/Holiness: Restoration Special stephanie needs: No Agree to transfusion: Yes Female Reproductive History: Para: 2 Course Vital Signs: Vital signs: Vital Signs Temperature 98.1 F 06/06/25 20:09 Pulse Rate 96 06/07/25 01:19 Respiratory Rate 16 06/07/25 00:53 Blood Pressure 120/72 06/07/25 01:19 Pulse Oximetry 94 06/07/25 00:53 Oxygen Delivery Me thod Room Air 06/06/25 21:54 MDM - Seizure MDM Narrative Medical decision making narrative: This patient had 1 episode of somewhat of a tonic-clonic type seizure here. She was not overly confused following. She is given 2 mg of Ativan IV along with 3 mg of Haldol IV. She is resting comfortably. Blood pressure is 108/75 heart rate is sinus 88. Saturations are 93% on room air with respirations of 14. Her blood alcohol level is 422. Her sodium is 146. Her white blood cell count is mildly low at 3 with an ANC of 0.7. Patient rested comfortably for a couple of hours. An alcohol level of 422, she is at high risk for withdrawal symptoms including withdrawal seizure. Decision was made clinically to place in the ICU. I spoke with the hospitalist who was willing to admit the patient. She went into evaluate the patient, who woke up, and said that she wanted to go home. Patient was able to answer all orientation questions correctly. The patient's father was with her. She refused admission, stating that she needed to go home so that she could get to work the next day. She signed an AMA form, and left AGAINST MEDICAL ADVICE. Lab Data 06/06/25 20:30 06/06/25 20:30 Labs: Radiology Impressions Chest X-Ray 06/06/25 22:17 IMPRESSION: No acute findings. Head CT 06/06/25 22:17 IMPRESSION: No acute intracranial hemorrhage. Laboratory Results WBC 2.98 10^3/uL (3.29-11.43) L 06/06/25 20: RBC 3.81 10^6/uL (3.85-5.65) L 06/06/25 20:30 Hgb 11.80 g/dL (11.27-16.99) 06/06/25 20: Hct 33.9 % (36-47) L 06/06/25 20:30 MCV 89.0 fl (85-98) 06/06/25 20:30 MCH 31.0 pg (27-33) 06/06/25 20: MCHC 34.8 g/dL (30-55) 06/06/25 20: RDW 13.2 % (12.1-15.1) 06/06/25 20:30 Plt Count 162 10^3/cmm (157-399) 06/06/25 20:30 MPV 8.9 fL (7.4-10.4) 06/06/25 20:30 Neut % (Auto) 21.3 % 06/06/25 20:30 Lymph % (Auto) 63.4 % 06/06/25 20:30 [place] % (Auto) 12.4 % 06/06/25 20:30 Eos % (Auto) 1.3 % 06/06/25 20:30 Baso % (Auto) 1.3 % 06/06/25 20:30 Neut # (Auto) 0.63 10^3/uL (1.8-7.7) L* 06/06/25 20:30 Lymph # (Auto) 1.9 10^3/uL (0.8-4.8) 06/06/25 20:30 [place] # (Auto) 0.4 10^3/uL (0.2-0.9) 06/06/25 20:30 Eos # (Auto) 0.0 10^3/uL (0.0-0.8) 06/06/25 20:30 Baso # (Auto) 0.0 10^3/uL (0.0-0.1) 06/06/25 20:30 Nucleated RBC % (auto) 0 % 06/06/25 20: Nucleated RBCs # 0.0 /100WBC 06/06/25 20:30 Sodium 146 mmol/L (136-145) H 06/06/25 20:30 Potassium 3.5 mmol/L (3.5-5.1) 06/06/25 20:30 Chloride 107 mmol/L (98-107) 06/06/25 20: Carbon Dioxide 24 mmol/L (22-29) 06/06/25 20:30 Anion Gap 18.5 (5-19) 06/06/25 20:30 BUN 10 mg/dL (6-20) 06/06/25 20:30 Creatinine 0.6 mg/dL (0.5-0.9) 06/06/25 20:30 GFR Calculation 116.6 mL/min (90-130) 06/06/25 20:30 Glucose 88 mg/dL (65-115) 06/06/25 20:30 Calculated Osmolality 300 mOsm/kg (285-295) H 06/06/25 20:30 Calcium 7.7 mg/dL (8.5-10.5) L 06/06/25 20:30 Total Bilirubin 0.2 mg/dL (0.15-1.2) 06/06/25 20:30 AST 33 U/L (0-32) H 06/06/25 20:30 ALT 32 U/L (0-33) 06/06/25 20:30 Alkaline Phosphatase 63 U/L (35-105) 06/06/25 20:30 Total Protein 6.4 g/dL (6.6-8.7) L 06/06/25 20:30 Albumin 4.0 g/dL (3.5-5.2) 06/06/25 20: Globulin 2.4 g/dL (1.3-4.6) 06/06/25 20:30 HCG, Qual Negative (Negative) 06/06/25 20:30 Salicylates < 0.3 mg/dL (3-10) L 06/06/25 20:30 Acetaminophen < 5.0 ug/mL (10-30) L 06/06/25 20:30 Ethyl Alcohol 422 mg/dL (0-10) H* 06/06/25 20:30 All radiology interpretation(s) finalized by discharge Discharge Plan Discharge Patient Disposition: Left Against Medical Advice Clinical Impression: Alcohol use disorder, severe, dependence Alcohol intoxication Qualifiers: Complication of substance-induced condition: uncomplicated Qualified Code(s): F10.920 - Alcohol use, unspecified with intoxication, uncomplicated Condition: Stable Prescriptions: No Action acamprosate 333 mg tablet,delayed release (DR/EC) 666 mg PO TID Qty: 180 3RF Rx Instructions: Take two tablets three times per day, administer with morning, mid-day and evening meals aripiprazole [Abilify] 10 mg tablet 10 mg PO .morning Qty: 30 3RF Rx Instructions: Take one tablet every morning folic acid 1 mg tablet 1 mg PO .morning 30 Days Qty: 30 3RF Rx Instructions: Take one tablet morning naltrexone 50 mg tablet 50 mg PO .morning Qty: 30 3RF Rx Instructions: Take one tablet every morning prazosin 2 mg capsule 6 mg PO BEDTIME Qty: 90 3RF Rx Instructions: Take three capsules at bedtime trazodone 50 mg tablet 50 mg PO BEDTIME PRN (Reason: Sleep) 30 Days Qty: 30 3RF Rx Instructions: May take half to one tablet 30-60 min prior to bedtime as needed for sleep. thiamine mononitrate (vit B1) [Vitamin B-1 (mononitrate)] 100 mg tablet 100 mg PO .morning 30 Days Qty: 30 3RF Rx Instructions: Take one tablet every morning metoprolol tartrate 25 mg Tablet 25 mg PO BID@0900,2100 30 Days Qty: 60 1RF pantoprazole 40 mg Tablet,Delayed Release (Dr/Ec) 40 mg PO DAILY 30 Days Qty: 30 1RF Print Language: Swazi Coding Level of Care Code ED Technology Solutions Architect for Lb Esquivel
--- NOTE | 2025-06-06 22:17 | CTR_ITS ---
PROCEDURE INFORMATION: Exam: CT Head Without Contrast Exam date and time: 06/06/2025 11:02 PM Age: 29 years old Clinical indication: EMS arrival for seizure; Additional info: Sz TECHNIQUE: Imaging protocol: Computed tomography of the head without contrast. Radiation optimization: All CT scans at this facility use at least one of these dose optimization techniques: automated exposure control; mA and/or kV adjustment per patient size (includes targeted exams where dose is matched to clinical indication); or iterative reconstruction. COMPARISON: CT head wo con* [id number] 01/31/2024 3:14 AM RADIATION DOSE METRICS: Total DLP (mGy-cm): 975.68 FINDINGS: Brain: Normal. No hemorrhage. Unremarkable white matter. No mass effect. Cerebral ventricles: No ventriculomegaly. Paranasal sinuses: Visualized sinuses are unremarkable. No fluid levels. Mastoid air cells: Visualized mastoid air cells are well aerated. Bones: Unremarkable. No acute fracture. Soft tissues: Unremarkable. CT/CT head wo con* [id number] IMPRESSION: No acute intracranial hemorrhage.
--- NOTE | 2025-06-06 22:17 | XRR_ITS ---
PROCEDURE INFORMATION: Exam: XR Chest Exam date and time: 06/06/2025 10:54 PM Age: 29 years old Clinical indication: EMS arrival for seizure; Additional info: Oscar TECHNIQUE: Imaging protocol: Radiologic exam of the chest. Views: 1 view. COMPARISON: CR XR chest 1V portable [id number] 02/01/2024 6:27 PM FINDINGS: Lungs: Unremarkable. No consolidation. Pleural spaces: Unremarkable. No pleural effusion. No pneumothorax. Heart/Mediastinum: Unremarkable. No cardiomegaly. Bones/joints: Unremarkable. XR/XR chest 1V portable [id number] IMPRESSION: No acute findings.
[2025-06-07 00:53] VITALS: BP 93/62; PULSE 82; RESP 16; O2SAT 94
[2025-06-07 01:19] VITALS: BP 120/72; PULSE 96
== END 2025-06-07 01:27 | disposition left against medical advice (07) ==
PROVIDERS: Physician Assistant; Emergency Provider Emergency Medicine
DX: Z53.21 Procedure and treatment not carried out due to patient leaving prior to being seen by health care provider (principal); F10.229 Alcohol dependence with intoxication, unspecified; Y90.8 Blood alcohol level of 240 mg/100 ml or more; F17.210 Nicotine dependence, cigarettes, uncomplicated
CPT/HCPCS: 36415; 70450; 71045; 80053; 80307; 84703; 85025; 96374; 96375; 99285; J1630; J2060; J7030

== ENCOUNTER 2025-06-18 13:56 | Inpatient (IN) | payer BC, MEDICAID, SELFPAY ==
[2025-04-02 15:56] VITALS: BMI 23.9
[2025-06-18] VITALS (7 sets, daily range): BP systolic 111–133; BP diastolic 71–99; PULSE 96–110; RESP 16–20; TEMP 36.4–37.1; O2SAT 92–99; BMI 22.6
--- OUTSIDE RECORDS SUMMARY | 2025-06-18 14:03 | XMS_ITS | Clinical Summary ---
Author Organization [facility] Address [address] 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 Gender Identity Not on file Sexual Orientation [...] INFLUENZA VACCINE (#1) 2025 COVID-19 Vaccine ( season) 2025, 10/20/2020 HEPATITIS B VACCINES Completed [...] See Separate Results 01/16/2018 12:32 PM CDT [facility] Genital SWAB OF ENDOCERVIX / Unknown Collection / Unknown 01/10/2018 2:30 PM CDT 01/13/2018 8:39 AM CDT us Shameka Cleveland LEAD INFORMATICA DEVELOPER PATHOLOGY/CYTOLOGY ORDERABLES Final Result [facility] CLIA# [id number] [address] [place] [address] [facility] CLIA # [id number] [address] [facility] [place] [address] * CERV/VAG CYTOPATH, THIN PREP (01/10/2018 2:30 PM CDT) CLINICAL INFORMATION SCREENING 01/15/2018 1:56 PM CDT [facility] LAST MENSTRUAL PERIOD 2018010201/15/2018 1:56 PM CDT [facility] ST PREV PAP: SEE COMMENT 01/15/2018 1:56 PM CDT [facility] ST Comment:INFORMATION NOT PROV IDED PREV BX: SEE COMMENT 01/15/2018 1:56 PM CDT [facility] ST Comment:INFORMATION NOT PROV IDED SOURCE Endocervix 01/15/2018 1:56 PM CDT [facility] ST ADEQUACY: SEE COMMENT 01/15/2018 1:56 PM CDT [facility] ST Comment: Satisfactory for evaluation. Endocervical/transformation zone component present. PAP INTERP SEE COMMENT 01/15/2018 1:56 PM CDT [facility] ST Comment:Negative for intraep ithelial lesion or malignancy. COMMUNICATIONS EDITOR: SEE COMMENT 2017 1:56 PM CDT [facility] ST Comment: MLK, CT(ASCP) CT screening location: [place] [address] [place] [address] EXPLANATORY NOTE SEE COMMENT 018 1:56 PM CDT [facility] ST Comment: EXPLANATORY NOTE: The [...] PM CDT 01/14/2018 8:49 AM CDT Narrative [facility] - 01/15/2018 1:56 PM CDT Performing Organization Information: Site ID: SL [facility] Address: [address] [place] [address] Director: Savanah Delaney us Shameka Cleveland LEAD INFORMATICA DEVELOPER PATHOLOGY/CYTOLOGY ORDERABLES Final Result [facility] from Last 3 Months or Most Recently Relevant to Health Maintenance Insurance [facility] MEDICAID Care Teams Jailkeeper Relationship Specialty Start Date End Date Tyesha Quinteros DO [address] [place] [address] PCP - General Family Practice 11/16/10
--- OUTSIDE RECORDS SUMMARY | 2025-06-18 14:03 | XMS_ITS | Clinical Summary ---
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 Oxygen Saturation 96% 04/25/2020 2:44 PM CDT [...] See Separate Results 01/16/2018 12:32 PM CDT [facility] [employer] [facility] Genital SWAB OF ENDOCERVIX / Unknown Collection / Unknown 01/10/2018 2:30 PM CDT 01/13/2018 8:39 AM CDT us 

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
--- NOTE | 2025-06-18 14:16 | CTR_ITS ---
PROCEDURE INFORMATION: Exam: CT Chest With Contrast; Diagnostic Exam date and time: 06/18/2025 3:15 PM Age: 29 years old Clinical indication: Injury or trauma; Blunt; Generalized; Other: Fall; Ecchymosis L chest/abdomen; ETOH use TECHNIQUE: Imaging protocol: Diagnostic computed tomography of the chest with contrast. Radiation optimization: All CT scans at this facility use at least one of these dose optimization techniques: automated exposure control; mA and/or kV adjustment per patient size (includes targeted exams where dose is matched to clinical indication); or iterative reconstruction. Contrast material: OMNI 350; Contrast volume: 100 ml; Contrast route: INTRAVENOUS (IV); COMPARISON: CR (CHEST, ) 06/06/2025 10:54 PM RADIATION DOSE METRICS: Total DLP (mGy-cm): 787.25 FINDINGS: Tubes, catheters and devices: None. Thyroid: Unremarkable. Trachea: Trachea and central airways are patent. Lungs: Unremarkable. No consolidation. Lung nodules: None. Pleural spaces: No pneumothorax. No pleural effusion. Heart: No cardiomegaly. No pericardial effusion. Esophagus: Unremarkable. Mediastinal space: Unremarkable. Lymph nodes: No mediastinal, hilar, or axillary lymphadenopathy. Vasculature: No aortic aneurysm or dissection. No central pulmonary embolism. Bones/joints: No acute fracture. Soft tissues: Unremarkable. PROCEDURE INFORMATION: Exam: CT Abdomen And Pelvis With Contrast Exam date and time: 06/18/2025 3:15 PM Age: 29 years old Clinical indication: Injury or trauma; Blunt; Generalized; Other: Fall; Ecchymosis L chest/abdomen; ETOH use TECHNIQUE: Imaging protocol: Computed tomography of the abdomen and pelvis with contrast. Radiation optimization: All CT scans at this facility use at least one of these dose optimization techniques: automated exposure control; mA and/or kV adjustment per patient size (includes targeted exams where dose is matched to clinical indication); or iterative reconstruction. Contrast material: OMNI 350; Contrast volume: 100 ml; Contrast route: INTRAVENOUS (IV); COMPARISON: CR (CHEST, ) 06/06/2025 10:54 PM RADIATION DOSE METRICS: Total DLP (mGy-cm): 787.25 FINDINGS: Lungs: Please see separate CT chest report from the same date. Liver: Diffusely hypoattenuating liver, compatible with hepatic steatosis. No focal lesion. Gallbladder and biliary ducts: No radiodense gallstones. No biliary ductal dilation. Pancreas: Normal. Spleen: Normal. Adrenal glands: Normal. Kidneys and ureters: Symmetrically enhanced kidneys. No hydronephrosis. No obstructing urolithiasis. Stomach and bowel: No dilated or inflamed bowel. Appendix: Normal. Intraperitoneal space: No free air. No free fluid. Vasculature: Unremarkable. No abdominal aortic aneurysm. Lymph nodes: No lymphadenopathy. Urinary bladder: Unremarkable as visualized. Reproductive: Unremarkable as visualized. Bones/joints: No acute fracture. Soft tissues: Unremarkable. CT/CT chest abdpel w/*[id number] IMPRESSION: No acute findings. IMPRESSION: 1. No acute findings. 2. Hepatic steatosis.
--- NOTE | 2025-06-18 14:17 | PC.NURSE ---
Patient was brought in by [facility] on a 96 hour hold. Involuntary 96 hour hold rights read and reviewed with patient. Asael from security present during reading of rights. Patient verbalized understandings and copy of rights given to patient.
[2025-06-18 14:58] LABS: PCP Screen Urine Negative (Negative)
[2025-06-18 15:00] LABS: Hematocrit 37.8 % (36-47); Hemoglobin 12.90 g/dL (11.27-16.99); Mean Corpuscular HGB Conc 34.1 g/dL (30-55); Mean Corpuscular Hemoglobin 31.5 pg (27-33); Mean Corpuscular Volume 92.2 fl (85-98); Nucleated Red Blood Cells % 0 %; Platelet Count 74 10^3/cmm (157-399); Red Blood Count 4.10 10^6/uL (3.85-5.65); White Blood Count 3.70 10^3/uL (3.29-11.43)
[2025-06-18 15:07] LABS: HCG, Serum Qual Negative (Negative)
[2025-06-18 15:17] LABS: Alanine Aminotransferase 166 U/L (0-33); Albumin Level 4.0 g/dL (3.5-5.2); Alkaline Phosphatase 110 U/L (35-105); Anion Gap 20.3 (5-19); Aspartate Amino Transferase 281 U/L (0-32); Blood Urea Nitrogen 7 mg/dL (6-20); Calcium 8.8 mg/dL (8.5-10.5); Carbon Dioxide 23 mmol/L (22-29); Chloride 102 mmol/L (98-107); Creatinine Clr Calc Pharmacy 196.1774; Globulin 3.0 g/dL (1.3-4.6); Glucose 118 mg/dL (65-115); Osmolality Calculated 293 mOsm/kg (285-295); Potassium 3.3 mmol/L (3.5-5.1); Sodium 142 mmol/L (136-145); Total Protein 7.0 g/dL (6.6-8.7)
[2025-06-18 15:21] LABS: Acetaminophen < 5.0 ug/mL (10-30); Salicylate < 0.3 mg/dL (3-10)
[2025-06-18 15:22] LABS: Alcohol Level 378 mg/dL (0-10)
[2025-06-18] MEDS: iohexol 350 mg/mL 500 mL Btl (per mL) IV (15:25)
--- NOTE | 2025-06-18 15:32 | PC.PHAR ---
Pt had medication list from over a year ago and not current. Removed from med list are the following: Acamprosate 333-666mg bp tid Aripiprazole 10mg qam Folic Acid 1mg qam Metoprolol Tart. 25mg bid Naltrexone 50mg qam Protonix 40mg daily Prazosin 2mg 2caps at hs Thiamine Ritchie. 100mg qam Trazoone 50mg qhs
[2025-06-18 15:50] LABS: Lipase 133 U/L (13-60)
[2025-06-18] MEDS: thiamine 100 mg/mL 2mL SDV IVP (16:08)
[2025-06-18] MEDS: multivitamin therapeutic Tablet 1 TAB PO (16:09)
--- NOTE | 2025-06-18 16:59 | PC.NURSE ---
ambulation trial: pt ambulated well to bathroom, denies any current symptoms. pt AOx4; attempted report to N[facility] x1 time, states nurse unable to take report at this time.
--- NOTE | 2025-06-18 17:27 | PC.NURSE ---
report called to G[facility] in [facility]. Security notified for transport
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
[2025-06-18] MEDS: MELATONIN 3 MG TABLET PO (21:53)
[2025-06-18] MEDS: guaiFENesin-dextromethorphan UDC 10 mL PO (21:54)
[2025-06-19 06:00] VITALS: BP 127/84; PULSE 76; RESP 16; TEMP 37.1; O2SAT 95
[2025-06-19 08:00] VITALS: BP 132/85; PULSE 102; RESP 14; O2SAT 98
[2025-06-19] MEDS: multivitamin therapeutic Tablet 1 TAB PO (08:42)
--- NOTE | 2025-06-19 09:14 | NUR.SHIFT ---
Pt states that she slept really well last night. She denies anxiety or depression this morning. No reports of SI/HI or hallucinations. No pain. She is calm and cooperative on assessment. She is laying back down after breakfast for another nap.
[2025-06-19 12:00] VITALS: BP 141/91; PULSE 105; RESP 14; TEMP 37.1; O2SAT 93
[2025-06-19 16:00] VITALS: BP 146/99; PULSE 99; RESP 15; TEMP 36.6; O2SAT 100
[2025-06-19 20:00] VITALS: BP 133/88; PULSE 71; RESP 16; TEMP 36.9; O2SAT 97
[2025-06-19] MEDS: MELATONIN 3 MG TABLET PO (21:13)
[2025-06-20] VITALS: BP 135/88; PULSE 63; RESP 16; TEMP 36.6; O2SAT 99
[2025-06-20 04:00] VITALS: BP 136/92; PULSE 75; RESP 16; TEMP 36.7; O2SAT 97
[2025-06-20 07:35] VITALS: BP 152/115; PULSE 96; RESP 16; TEMP 36.6; O2SAT 99
[2025-06-20] MEDS: multivitamin therapeutic Tablet 1 TAB PO (08:18)
--- NOTE | 2025-06-20 08:31 | NUR.SHIFT ---
Pt states that she slept pretty good last night. She denies any anxiety or depression this morning. No reports of SI/HI or hallucinations. No pain reported. She is calm and cooperative on assessment. She talks about her desire to go to [facility] on d/c.
[2025-06-20 12:00] VITALS: BP 131/90; PULSE 86; RESP 16; TEMP 36.8; O2SAT 97
--- NOTE | 2025-06-20 13:05 | P.NPUPN_ITS ---
Subjective NPU 2 Subjective: 29-year-old female with a history of dep ression and alcohol dependence with a history of multiple inpatient hospitalizations over the last few months. The patient had endorsed a history of cycling into hypomania for several days at a time over the past few years. She had reported a previous trial on Abilify for bipolar disorder only. She had reported having more episodes of depression and anahi. She had denied any suicidal thoughts at this time and remained focused about going to substance abuse treatment. She reported some struggles with sleep continuity disruption. Mental Status Exam 2 MSE Comments: This is a well-nourished white female in hospital scrubs with improved grooming and fair eye contact. No abnormal involuntary motor movements except for mild psychomotor retardation. She was cooperative with exam in no acute distress. Her speech was monotone in quality and normal in rate and volume. Mood described as allright. Her affect was restricted in range and mood incongruent. Her thought process was linear, logical and goal directed. Thought content: Patient denied suicidal or homicidal ideation. There were no delusions reported or noted, She denied any auditory or visual hallucinations. Attention was fair. Her recent and remote memory were grossly intact. She was alert and oriented to person, time and place. Her insight was limited. Her judgment was poor. Her impulse control appeared poor. Vitals/I&O/Wt Last Vital Signs Temp 98.3 F 06/20/25 12:00 Pulse 86 06/20/25 12:00 Resp 16 06/20/25 12:00 BP 131/90 06/20/25 12:00 Pulse Ox 97 06/20/25 12:00 O2 Del Method Room Air 06/20/25 12:00 Weight last 48 hrs Weight 64.864 kg Weight 63.503 kg Data NPU 06/18/25 14:40 06/18/25 14:40 A&P Assessment and plan 1. Major depressive disorder, recurrent: 2. Alcohol use disorder, severe, dependence: 3. WESTON (generalized anxiety disorder): 4. Panic attacks: 5. PTSD (post-traumatic stress disorder): 6. Suicidal ideation: 7. Nicotine use disorder: 8. Alcohol intoxication: 9. Alcohol withdrawal: Plan: A 29-year-old white female with a long history of mental health challenges including alcohol dependence and depression currently admitted with reports of psychosis and depression. 1. Will attempt to gather collateral information. 2. Continue every 15 minute checks for safety. 3. Encourage individual, group and milieu therapy. 4. CIWA protocol. 5. Increase zoloft to 50mg daily and add latuda 20mg at 7Pm for bipolar depression. Patient to benefit from Inpatient hospitalization given her medical issues including hepatic dysfunction associated with alcohol use. PDMP PDMP Reviewed: Not Reviewed Involuntary Hold Information 2 Hold Status: Legal Status: 96 Hour Hold Date/Time Hold Expires: 06/24/2025 @1405 96 Hour Hold: 96 Hour Involuntary Admission: Yes Attestations NPU 2 Medical Necessity Statement*: npatient hospitalization is medically necessary and the clinically appropriate intervention at this time. We will monitor/initiate medications and make changes as indicated. Her likely length of stay 4-6 days. Coding Level of Care Code Acute Code for g Fwd Diagnoses Major depressive disorder, recurrent F33.9 Alcohol use disorder, severe, dependence F10.20 WESTON (generalized anxiety disorder) F41.1 Panic attacks F41.0 PTSD (post-traumatic stress disorder) F43.10 Suicidal ideation R45.851 Nicotine use disorder F17.200 Alcohol intoxication F10.929 Alcohol withdrawal F10.939
[2025-06-20 16:00] VITALS: BP 125/88; PULSE 83; RESP 16; TEMP 37; O2SAT 98
[2025-06-20 19:58] VITALS: BP 148/95; PULSE 89; RESP 16; TEMP 37.1; O2SAT 95
[2025-06-20] MEDS: MELATONIN 3 MG TABLET PO (20:39)
[2025-06-21] VITALS: BP 135/89; PULSE 78; RESP 16; TEMP 36.8; O2SAT 99
[2025-06-21 04:00] VITALS: BP 150/90; PULSE 102; RESP 16; TEMP 37.2; O2SAT 100
[2025-06-21 07:51] VITALS: BP 134/91; PULSE 98; RESP 16; TEMP 37.4; O2SAT 97
[2025-06-21] MEDS: multivitamin therapeutic Tablet 1 TAB PO (08:07)
[2025-06-21 13:20] VITALS: BP 125/89; PULSE 98; RESP 16; TEMP 36.7; O2SAT 98
--- NOTE | 2025-06-21 18:55 | W.PM.NPUPNS ---
Subjective NPU Subjective: 29-year-old female with a history of depression and alcohol dependence with recent relapse on alcohol with history of signficant medical consequences including hepatic damage. The patient had appeared more irritable today. She had expressed frustration that she was not leaving today. She had denied any suicidal ideation. She had stated that she was not having any alcohol related withdrawal symptoms. The patient had reported that she needed to get a job and had concerns about losing her home. She had reported some cravings for alcohol. She had reported that she had not been on Vivitrol for a significant amount of time. She reported no current side effects from her medication. Mental Status Exam MSE Comments: This is a well-nourished white female in hospital scrubs with improved grooming and fair eye contact. No abnormal involuntary motor movements except for mild psychomotor retardation. She was cooperative with exam in no acute distress. Her speech was monotone in quality and normal in rate and volume. Mood described was fine, why can't i leave. Her affect was irritable today. Her thought process was linear, logical and goal directed. Thought content: Patient denied suicidal or homicidal ideation. There were no delusions reported or noted, She denied any auditory or visual hallucinations. Attention was fair. Her recent and remote memory were grossly intact. She was alert and oriented to person, time and place. Her insight was limited. Her judgment was poor. Her impulse control appeared poor. Vitals/I&O/Wt Last Vital Signs Temp 98.1 F 06/21/25 13:20 Pulse 98 06/21/25 13:20 Resp 16 06/21/25 13:20 BP 125/89 06/21/25 13:20 Pulse Ox 98 06/21/25 13:20 O2 Del Method Room Air 06/21/25 13:20 Weight last 48 hrs Weight 64.864 kg Data NPU 06/18/25 14:40 06/18/25 14:40 A&P Assessment and plan 1. Major depressive disorder, recurrent: 2. Alcohol use disorder, severe, dependence: 3. WESTON (generalized anxiety disorder): 4. Panic attacks: 5. PTSD (post-traumatic stress disorder): 6. Suicidal ideation: 7. Nicotine use disorder: 8. Alcohol intoxication: 9. Alcohol withdrawal: Plan: A 29-year-old white female with a long history of mental health challenges including alcohol dependence and depression currently admitted with reports of psychosis and depression. 1. Will attempt to gather collateral information. 2. Continue every 15 minute checks for safety. 3. Encourage individual, group and milieu therapy. 4. CIWA protocol. 5. Continue zoloft to 50mg daily and increase latuda to 40mg at 7Pm for bipolar depression. Patient to benefit from Inpatient hospitalization given her medical issues including hepatic dysfunction associated with alcohol use. Patient remains inpatient and reports willing to return home while awaiting inpatient substance abuse treatment. PDMP PDMP Reviewed: Not Reviewed Involuntary Hold Information Hold Status: Legal Status: 96 Hour Hold Date/Time Hold Expires: 06/24/2025 @ 1405 96 Hour Hold: 96 Hour Involuntary Admission: Yes Attestations NPU Medical Necessity Statement*: npatient hospitalization is medically necessary and the clinically appropriate intervention at this time. We will monitor/initiate medications and make changes as indicated. Her likely length of stay 1-2 days. Coding Level of Care Code Acute Code for [facility] Fwd Diagnoses Major depressive disorder, recurrent F33.9 Alcohol use disorder, severe, dependence F10.20 WESTON (generalized anxiety disorder) F41.1 Panic attacks F41.0 PTSD (post-traumatic stress disorder) F43.10 Suicidal ideation R45.851 Nicotine use disorder F17.200 Alcohol intoxication F10.929 Alcohol withdrawal F10.939
--- NOTE | 2025-06-21 20:24 | PC.NURSE ---
BP was high at 145/103. No med ordered
[2025-06-21 20:28] VITALS: BP 145/103; PULSE 89; RESP 17; TEMP 36.8; O2SAT 97
[2025-06-21] MEDS: MELATONIN 3 MG TABLET PO (20:46)
[2025-06-21 22:00] VITALS: BP 145/103; PULSE 89; RESP 17; TEMP 36.8; O2SAT 97
[2025-06-22 06:00] VITALS: BP 129/80; PULSE 78; RESP 17; TEMP 36.8; O2SAT 99
[2025-06-22] MEDS: multivitamin therapeutic Tablet 1 TAB PO (08:41)
[2025-06-22 13:14] VITALS: BP 143/102; PULSE 100; RESP 18; TEMP 36.7; O2SAT 100
--- NOTE | 2025-06-22 15:58 | P.NPUDS_ITS ---
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 06/22/25 Ordered By: David Singh Referrals: [facility] [Other] [facility] [Other] - 06/28/25 3:00 pm Discharge Diet: Usual diet Discharge Activity: Resume usual activity Patient Instructions: Opioid Safety, Patient Portal & [facility] Instructions Discharge Attestations NPU Time Spent in Discharge Care*: less than 30 min Specific Discharge Activities: Specific discharge activities: educating patient, discussing with family independence case manager/social workers/dc planners and documenting/other paperwork Coding Level of Care Code Acute Code for Chg Fwd Diagnoses Major depressive disorder, recurrent F33.9 Alcohol use disorder, severe, dependence F10.20 [place] (generalized anxiety disorder) F41.1 Panic attacks F41.0 PTSD (post-traumatic stress disorder) F43.10 Suicidal ideation R45.851 Nicotine use disorder F17.200 Alcoholic intoxication without complication F10.920 Complication of substance-induced condition: uncomplicated Alcohol withdrawal F10.939
[2025-06-22 16:37] VITALS: BP 143/102; PULSE 100; RESP 18; TEMP 36.7; O2SAT 100
== END 2025-06-22 16:56 | disposition home or self-care (01) | DRG 885 ==
LOC: ER 15:06 → NP 16:25
PROVIDERS: Admitting Provider Psychiatry & Neurology Psychiatry; Emergency Provider Physician Assistant; Visit Provider Psychiatry & Neurology Psychiatry
DX: F23 Brief psychotic disorder (principal); R45.851 Suicidal ideations; F33.3 Major depressive disorder, recurrent, severe with psychotic symptoms; F10.229 Alcohol dependence with intoxication, unspecified; Y90.8 Blood alcohol level of 240 mg/100 ml or more; F41.1 Generalized anxiety disorder; F41.0 Panic disorder [episodic paroxysmal anxiety]; F43.12 Post-traumatic stress disorder, chronic; F17.210 Nicotine dependence, cigarettes, uncomplicated; D69.6 Thrombocytopenia, unspecified; Z81.8 Family history of other mental and behavioral disorders; K76.89 Other specified diseases of liver; R07.9 Chest pain, unspecified; W19.XXXA Unspecified fall, initial encounter
CPT/HCPCS: 36415; 71260; 74177; 80053; 80306; 80307; 83690; 84703; 85025; 96374; 97150; 97165; 99285; J3411; J7030; J9999